=== PATIENT | female | born 1945 | race Caucasian/White ===

== ENCOUNTER → 2021-06-22 11:36 | Outpatient (CLI) | payer MEDICARE, OTHER, SELFPAY ==
--- NOTE | 2021-06-22 11:41 | DI.RAD.S_ITS ---
PROCEDURE: XR KNEE RT 3V INDICATIONS: FREQUENT FALLS TECHNIQUE: 3 views of the knee were acquired. COMPARISON: None. FINDINGS: Bones: Postsurgical changes compatible with right knee total arthroplasty. Orthopedic hardware is intact. No lucencies at the bone-hardware interface. No fractures or dislocations. No suspicious bony lesions. Soft tissues: No joint effusion. No suspicious soft tissue calcifications. IMPRESSION: No fracture. No acute osseous lesion. If symptoms and/or clinical suspicion for pathology persists, further assessment with repeat radiographs (7-10 days) or advanced imaging (e.g. CT, MRI or bone scan) should be considered. Dictated by: Ciara Michael MD, PhD on 06/22/2021 at 16:56 Approved by: Ciara Michael MD, PhD on 06/22/2021 at 16:56
--- NOTE | 2021-06-22 11:41 | DI.RAD.S_ITS ---
PROCEDURE: XR HIP W PEL IF DONE RT 2V INDICATIONS: FREQUENT FALLS TECHNIQUE: AP pelvis with lateral view(s) of the right hip(s). COMPARISON: None. FINDINGS: Bones: Postsurgical changes compatible with right hip arthroplasty and left femoral neck fracture ORIF. Orthopedic hardware is intact. No lucencies at the bone-hardware interface. No acute fractures or dislocations. Pelvic ring appears intact. No suspicious bony lesions. Soft tissues: The visualized bowel gas pattern is normal. No suspicious soft tissue calcifications. IMPRESSION: No acute fracture. No acute osseous lesion. If symptoms and/or clinical suspicion for pathology persists, further assessment with repeat radiographs (7-10 days) or advanced imaging (e.g. CT, MRI or bone scan) should be considered. Dictated by: Ciara Michael MD, PhD on 06/22/2021 at 16:54 Approved by: Ciara Michael MD, PhD on 06/22/2021 at 16:54
--- NOTE | 2021-06-22 11:41 | DI.RAD.S_ITS ---
PROCEDURE: XR FOOT RT MIN 3V INDICATIONS: FREQUENT FALLS TECHNIQUE: 3 views of the foot were acquired. COMPARISON: None. FINDINGS: Bones: No fractures or dislocations. No suspicious bony lesions. Calcaneal bone spurs. Moderate midfoot osteoarthritis. Soft tissues: No tibiotalar joint effusion. Achilles tendon appears normal. IMPRESSION: No fracture. No acute osseous lesion. If symptoms and/or clinical suspicion for pathology persists, further assessment with repeat radiographs (7-10 days) or advanced imaging (e.g. CT, MRI or bone scan) should be considered. Dictated by: Ciara Michael MD, PhD on 06/22/2021 at 16:55 Approved by: Ciara Michael MD, PhD on 06/22/2021 at 16:56
== END ==
PROVIDERS: PCP Family Medicine; Referring Provider Family Medicine; Visit Provider Family Medicine
DX: R29.6 Repeated falls (principal); M19.071 Primary osteoarthritis, right ankle and foot; M77.31 Calcaneal spur, right foot
CPT/HCPCS: 73502; 73562; 73630

== ENCOUNTER → 2021-11-22 16:21 | Outpatient (CLI) | payer MEDICARE, OTHER, SELFPAY ==
--- NOTE | 2021-11-22 | DI.RAD.S_ITS ---
PROCEDURE: XR WRIST RT MIN 3V INDICATIONS: s/p fall / TECHNIQUE: 4 views of the wrist were acquired. COMPARISON: None. FINDINGS: Bones: No fractures or dislocations. Osteoarthritic changes throughout wrist joints are seen. No suspicious bony lesions. Scaphoid view: Scaphoid is grossly intact. Soft tissues: No suspicious soft tissue calcifications. IMPRESSION: Right wrist osteoarthritis. No gross acute fracture or dislocation. Dictated by: Rob Lantigua M.D. on 11/22/2021 at 20:58 Approved by: Rob Lantigua M.D. on 11/22/2021 at 20:59
--- NOTE | 2021-11-22 | DI.RAD.S_ITS ---
PROCEDURE: XR HIP W PEL IF DONE RT 2V INDICATIONS: s/p fall / TECHNIQUE: AP pelvis with lateral view(s) of the right hip(s). COMPARISON: [facility], CR, XR HIP W PEL IF DONE RT 2V, 06/22/2021, 11:41. FINDINGS: Bones: There is prior right total hip arthroplasty and internal fixation of left femoral neck. Alignment of right hip is anatomic. No evidence of hardware loosening or failure. Cortical irregularity involving medial portion of right superior pubic ramus is seen concerning for a minimally displaced fracture in this area. Right inferior pubic ramus fracture is not definitively seen, however is likely present given mechanism of pelvic fracture. No suspicious bony lesions. Soft tissues: The visualized bowel gas pattern is normal. No suspicious soft tissue calcifications. IMPRESSION: Prior right total hip arthroplasty. No acute right hip fracture or dislocation. No gross hardware complication. Finding is concerning for subtle minimally displaced fracture involving medial portion of right superior pubic ramus, suggest clinical correlation. CT of pelvis can be done for further evaluation if indicated. Dictated by: Rob Lantigua M.D. on 11/22/2021 at 20:57 Approved by: Rob Lantigua M.D. on 11/22/2021 at 20:58
== END ==
PROVIDERS: PCP Family Medicine; Referring Provider Family Medicine; Visit Provider Family Medicine
DX: M25.551 Pain in right hip (principal); M25.531 Pain in right wrist; M19.031 Primary osteoarthritis, right wrist; W19.XXXA Unspecified fall, initial encounter
CPT/HCPCS: 73110; 73502

== ENCOUNTER 2021-12-03 18:32 | Observation (INO) | payer MEDICARE, OTHER, SELFPAY ==
[2021-12-03] VITALS (7 sets, daily range): BP systolic 140–185; BP diastolic 66–83; PULSE 73–85; RESP 18; TEMP 36.9; O2SAT 96–99; BMI 25.4
--- NOTE | 2021-12-03 21:27 | PC.NURSE ---
Addendum entered by Carolyne Martinez R.N. 12/04/21 00:21: Patient took home bedtime meds with verbal order from Dr Hylton. Original Note: Patient reports fall on 11/18, stood up from table and legs went out from under her, fell onto right hip. Seen by Dr Smith who prescribed hydrocodone/tylenol for pain. Patient took this for several days, switched to edible pot, and then switched back to hydrocodone/tylenol yesterday. Reports that neither has worked to control her pain.
--- NOTE | 2021-12-03 22:34 | ED_ITS ---
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 She fell 2 weeks ago she was sitting at a table got up from doing a puzzle when she slipped and fell. She is our primary care provider on the x-rays of hip and wrist were done and negative. She has been put on numerous medications since then including Tylenol with codeine, hydrocodone his none of that those were helping she took marijuana gummies which made her very lethargic and her family took them away from her. Daughter whom she lives with says that she has been more immobile. She typically is able to get up and go to bed and use the restroom however she has been fairly bound to the recliner. Currently appears very uncomfortable. Complaining of left-sided pain today rotating in the bed. No flank pain. points to her buttock on the left. Daughter states she was previously complaining of right-sided pain and actually fell on the right side initially Related Data Home Medications Medication Instructions Recorded Confirmed digoxin 250 mcg (0.25 mg) tablet 250 mcg PO BEDTIME 12/04/21 12/04/21 ferrous sulfate 325 mg (65 mg 325 mg PO DAILY 12/04/21 12/04/21 iron) tablet levothyroxine 175 mcg tablet 250 mcg PO QAM 12/04/21 12/04/21 (Synthroid) mirtazapine 45 mg tablet 45 mg PO BEDTIME 12/04/21 12/04/21 omeprazole 20 mg capsule,delayed 20 mg PO DAILY 12/04/21 12/04/21 release rivaroxaban 20 mg tablet (Xarelto) 20 mg PO BEDTIME 12/04/21 12/04/21 sertraline 100 mg tablet 150 mg PO DAILY 12/04/21 12/04/21 tolterodine 2 mg tablet 2 mg PO BEDTIME 12/04/21 12/04/21 vitamin B complex (B 1 tab PO DAILY 12/04/21 12/04/21 Complex-Vitamin B12) Allergies Allergy/AdvReac Type Severity Reaction Status Date / Time gabapentin Allergy Verified 12/03/21 18:58 Review of Systems Review of Systems Narrative: GENERAL: Denies chills, fatigue, malaise, fever, sweats, travel HEENT: Denies sinus pain, ear pain, sore throat, difficulty swallowing, neck pain RESPIRATORY: Denies dyspnea, cough, wheezing, hemoptysis, sputum. CARDIOVASCULAR: Denies chest pain, palpitations, orthopnea, edema GASTROINTESTINAL: Denies nausea, vomiting, abdominal pain, diarrhea, constipation, melena. : Denies dysuria, frequency, incontinence, hematuria, urinary retention, flank pain. MUSCULOSKELETAL: See HPI SKIN: No rash, no erythema, no pruritus NEUROLOGIC: Denies weakness, dizziness, headache, numbness, change in speech, confusion PSYCHIATRIC: No concerning psychosocial issues. 12 point review of systems is negative except for those stated above and HPI Patient History Medical History (Updated 12/04/21 @ 00:27 by Renee Hylton DO) Neuropathy Social History Smoking Status: Never smoker Smoking Status: Never smoker Substance Use Type: marijuana Exam Initial Vital Signs Initial Vital Signs: Vital Signs Temperature 98.4 F 12/03/21 18:58 Pulse Rate 85 12/03/21 18:58 Respiratory Rate 18 12/03/21 18:58 Blood Pressure 140/76 12/03/21 18:58 Pulse Oximetry 99 12/03/21 18:58 GENERAL: 76-year-old female appears in pain uncomfortable can not find his position HEENT: Head atraumatic,EOMI, pupils reactive, face symmetric, moist mucous membranes CARDIOVASCULAR: Regular rate and rhythm without murmurs, rubs or gallops. RESPIRATORY: Breath sounds equal bilaterally, no wheezes rales or rhonchi. BACK: Midline remove lower lumbar tenderness. Pain in left buttock EXTREMITIES: Normal range of motion, no clubbing or edema. Neurovascularly intact. Pelvis is stable both knees are bent and equal distal pedal pulses intact. NEUROLOGICAL: Alert and oriented x4. Moving all extremities SKIN: Warm, dry, no laceration, no petechiae, no rashes or lesions. Course Orders Ordered: ED Orders 12/03/21 22:50 CT lumbar spine wo con Stat CT pelvis wo con Stat 12/03/21 23:54 CBC Auto Diff [Complete Blood Count AUTO DIFF] Stat CMP [Comprehensive Metabolic Panel] Stat 12/03/21 23:58 COVID19 -Nasal swab/Pre-Proc Stat 12/04/21 00:33 Consult to Orthopedic Surgery Stat Hydromorphone HCl (Hydromorphone 2 Mg Inj) 1 mg SUBCUT Q4H PRN PRN Reason: Pain, Severe (7-10) Last Admin: 12/03/21 23:04 Dose: 1 mg Documented by: ANN Discontinued Medications Hydromorphone HCl (Hydromorphone 0.5 Mg Inj) 0.5 mg IV NOW ONE Stop: 12/04/21 00:18 Last Admin: 12/04/21 00:25 Dose: 0.5 mg Documented by: ANN Lorazepam (Lorazepam 2 Mg/Ml Inj) 0.5 mg IV NOW ONE Stop: 12/04/21 00:18 Last Admin: 12/04/21 00:25 Dose: 0.5 mg Documented by: ANN Vital Signs Vital signs: Vital Signs - 8 hr 12/03/21 18:58 12/03/21 21:21 12/03/21 21:22 Temperature 98.4 F Pulse Rate 85 83 83 Respiratory Rate 18 Blood Pressure 140/76 172/83 H Pulse Oximetry 99 97 96 12/03/21 21:30 12/03/21 21:31 12/03/21 22:00 Temperature Pulse Rate 82 76 80 Respiratory Rate Blood Pressure 185/76 H Pulse Oximetry 98 99 99 12/03/21 22:01 12/04/21 00:29 12/04/21 00:30 Temperature Pulse Rate 73 68 67 Respiratory Rate Blood Pressure 144/66 H 129/59 L Pulse Oximetry 98 93 93 MDM - Back Pain/Injury Lab Data Result diagrams: 12/04/21 00:05 12/04/21 00:05 Labs: Lab Results 12/04/21 12/04/21 12/04/21 Range/Units 00:05 00:05 00:05 WBC 8.2 (4.5-11.0) X10^3/uL RBC 3.58 L (4.0-5.2) X10^6/uL Hgb 11.2 L (12.0-16.0) g/dL Hct 33.9 L (36-46) % MCV 94.7 (80-100) fL MCH 31.4 (26-34) PG MCHC 33.2 (30-36) % RDW 13.8 (11.6-14.8) % Plt Count 308 (150-400) X10^3/uL Neut % (Auto) Not Reportable Lymph % (Auto) Not Reportable [place] % (Auto) Not Reportable Eos % (Auto) Not Reportable Baso % (Auto) Not Reportable Lymph # (Auto) Not Reportable [place] # (Auto) Not Reportable Baso # (Auto) Not Reportable Total Counted 100 Seg Neutrophils % 81.0 H (38-70) % Band Neutrophils % 1.0 L (3-7) % Lymphocytes % (Manual) 16.0 L (25-45) % Monocytes % (Manual) 1.0 L (2-11) % Basophils % (Manual) 1.0 (0-1) % Neutrophils # (Manual) 6724 H (0650-8086) /uL RBC Morphology Normal morphology Sodium 139 (137-145) mmol/L Potassium 4.0 (3.4-5.1) mmol/L Chloride 107 (98-107) mmol/L Carbon Dioxide 29 (22-32) mmol/L BUN 18 H (7-17) mg/dL Creatinine 0.79 (0.52-1.04) mg/dL Estimated GFR > 60.0 (>60) mL/min BUN/Creatinine Ratio 22.8 H (6-22) Glucose 97 (80-110) mg/dL Calcium 9.1 (8.4-10.2) mg/dL Total Bilirubin 0.6 (0.2-1.3) mg/dL AST 36 (14-36) IU/L ALT 18 (<35) IU/L Alkaline Phosphatase 218 H (38-126) U/L Total Protein 7.3 (6.3-8.2) g/dL Albumin 4.0 (3.5-5.0) g/dL Globulin 3.3 (1.7-4.1) g/dL Albumin/Globulin Ratio 1.2 (1.0-2.8) SARS-CoV-2 (PCR) Negative (Negative) Imaging Data CT scan - abdomen/pelvis: Radiologist's Impression: PROCEDURE:? CT PEL WO CON ? INDICATIONS:? fall pain ? TECHNIQUE:? Noncontrast 3 mm axial sections acquired through the bony pelvis, with coronal and sagittal reformatting.? ? COMPARISON:? [facility], CT, CT LUMBAR SPINE WO CON, 12/03/2021, 23:00.? [facility], CR, XR HIP W PEL IF DONE RT 2V, 06/22/2021, 11:41.? [facility], CR, XR LUMBAR SPINE WITH FLEXION EXTENSION 5 VIEWS, 07/26/2021, 16:13.? [facility], CR, XR HIP W PEL IF DONE RT 2V, 11/22/2021, 16:36. ? FINDINGS:? Image quality:? Excellent.? ? Bones:? There is a minimally impacted slightly displaced medial superior obturator ring fracture that intersects with the symphysis pubis on the right, not present on prior plain film imaging 06/22/21.? Metal artifact from fixation devices at the right and left hip does produce reduced quality of visualization in this area but the injury appears subacute. ? Soft tissues:? No hematoma found. ? ? IMPRESSION:? Subacute minimally impacted medial right superior obturator ring fracture, no hip fracture or adjacent spine injury is found. ? ? ? Dictated by: Anil Epperson M.D. on 12/03/2021 at 23:32? CT lumbar: Radiologist's Impression: PROCEDURE:? CT LUMBAR SPINE WO CON ? INDICATIONS:? fall2 weeks ago increased pain ? TECHNIQUE:? Noncontrast 3 mm thick sections acquired from the T12 level to the sacrum.? Sagittal and coronal reformats were constructed.? For radiation dose reduction, the following was used:? automated exposure control.? ? COMPARISON:? None. ? FINDINGS:? Image quality:? Excellent.? ? Bones:? There is normal bony alignment.? No acute vertebral body compression fractures.? No suspicious lytic or blastic bony lesions.? No pars defects.? ? Soft tissues:? No retroperitoneal masses or hematomas.? Visualized aorta is normal in caliber.? ? ? IMPRESSION:? No acute or subacute or trauma found.? Chronic mild degenerative disc disease is noted along the low thoracic and lumbosacral spine.? Elective MR scanning may be warranted depending on the clinical status if disc bulge or herniation after trauma is clinically suspected. ? ? Dictated by: Anil Epperson M.D. on 12/03/2021 at 23:29 ? ? MDM Narrative Medical decision making narrative: The patient overall appears quite uncomfortable. She initially had a fall about 2 weeks ago with progressive decline all unable to ambulate. CT does confirm very minimally impacted right superior obturator ring fracture. She was given Dilaudid for pain initially and does not seem to help much. IV is placed. She will need likely need physical therapy, seeing as though she is not doing well at home and pain is not well controlled with pain medication or marijuana gummies. Pain is much better after small dose of Dilaudid and Ativan. Dr. Elizabeth updated patient's symptoms test results and happily accepted Dr. Clement orthopedics consulted in regards to fracture. Agrees with that admission. May weight bear as tolerated and pain management. Discharge Plan Departure Patient Disposition: Admitted As Inpatient Clinical Impression: Closed pelvic fracture Admit Date/Time: 12/04/21 00:34 Admit Provider: Kait Elizabeth
--- NOTE | 2021-12-03 22:50 | DI.CT.S_ITS ---
PROCEDURE: CT LUMBAR SPINE WO CON INDICATIONS: fall2 weeks ago increased pain TECHNIQUE: Noncontrast 3 mm thick sections acquired from the T12 level to the sacrum. Sagittal and coronal reformats were constructed. For radiation dose reduction, the following was used: automated exposure control. COMPARISON: None. FINDINGS: Image quality: Excellent. Bones: There is normal bony alignment. No acute vertebral body compression fractures. No suspicious lytic or blastic bony lesions. No pars defects. Soft tissues: No retroperitoneal masses or hematomas. Visualized aorta is normal in caliber. IMPRESSION: No acute or subacute or trauma found. Chronic mild degenerative disc disease is noted along the low thoracic and lumbosacral spine. Elective MR scanning may be warranted depending on the clinical status if disc bulge or herniation after trauma is clinically suspected. Dictated by: Anil Epperson M.D. on 12/03/2021 at 23:29 Approved by: Anil Epperson M.D. on 12/03/2021 at 23:31
--- NOTE | 2021-12-03 22:50 | DI.CT.S_ITS ---
PROCEDURE: CT PEL WO CON INDICATIONS: fall pain TECHNIQUE: Noncontrast 3 mm axial sections acquired through the bony pelvis, with coronal and sagittal reformatting. COMPARISON: [facility], CT, CT LUMBAR SPINE WO CON, 12/03/2021, 23:00. [facility], CR, XR HIP W PEL IF DONE RT 2V, 06/22/2021, 11:41. [facility], CR, XR LUMBAR SPINE WITH FLEXION EXTENSION 5 VIEWS, 07/26/2021, 16:13. [facility], CR, XR HIP W PEL IF DONE RT 2V, 11/22/2021, 16:36. FINDINGS: Image quality: Excellent. Bones: There is a minimally impacted slightly displaced medial superior obturator ring fracture that intersects with the symphysis pubis on the right, not present on prior plain film imaging 06/22/21. Metal artifact from fixation devices at the right and left hip does produce reduced quality of visualization in this area but the injury appears subacute. Soft tissues: No hematoma found. IMPRESSION: Subacute minimally impacted medial right superior obturator ring fracture, no hip fracture or adjacent spine injury is found. Dictated by: Anil Epperson M.D. on 12/03/2021 at 23:32 Approved by: Anil Epperson M.D. on 12/03/2021 at 23:37
[2021-12-03] MEDS: HYDROMORPHONE 2 MG INJ 1 MG SUBCUT (23:04)
[2021-12-04] VITALS (11 sets, daily range): BP systolic 115–155; BP diastolic 59–79; PULSE 48–87; RESP 16–20; TEMP 36.3–36.7; O2SAT 93–99; BMI 26.2
[2021-12-04 00:21] LABS: Hematocrit 33.9 % (36-46); Hemoglobin 11.2 g/dL (12.0-16.0); Mean Corpuscular HGB Conc 33.2 % (30-36); Mean Corpuscular Hemoglobin 31.4 PG (26-34); Mean Corpuscular Volume 94.7 fL (80-100); Platelet Count 308 X10^3/uL (150-400); Red Blood Cell Count 3.58 X10^6/uL (4.0-5.2); Red Cell Distribution Width 13.8 % (11.6-14.8); White Blood Cell Count 8.2 X10^3/uL (4.5-11.0)
[2021-12-04 00:22] LABS: Add Manual Diff / Slide Review YES
[2021-12-04] MEDS: HYDROMORPHONE 0.5 MG INJ IV (00:25)
[2021-12-04] MEDS: LORazepam 2 MG/ML INJ 0.5 MG IV (00:25)
[2021-12-04 00:26] LABS: Alanine Aminotransferase 18 IU/L (<35); Albumin Globulin Ratio 1.2 (1.0-2.8); Alkaline Phosphatase 218 U/L (38-126); Aspartate Aminotransferase 36 IU/L (14-36); BUN Creatinine Ratio 22.8 (6-22); Bilirubin Total 0.6 mg/dL (0.2-1.3); Blood Urea Nitrogen 18 mg/dL (7-17); Calcium 9.1 mg/dL (8.4-10.2); Carbon Dioxide 29 mmol/L (22-32); Chloride 107 mmol/L (98-107); Estimated Glomerular Filt Rate > 60.0 mL/min (>60); Globulin 3.3 g/dL (1.7-4.1); Glucose 97 mg/dL (80-110); Sodium 139 mmol/L (137-145); Total Protein 7.3 g/dL (6.3-8.2)
[2021-12-04 00:29] LABS: COVID19 -Nasal RAPID Negative (Negative)
[2021-12-04 00:31] LABS: HEMOLYSIS 64 (0-50)
[2021-12-04 00:56] LABS: RBC Morphology Normal Morphology
[2021-12-04 01:08] LABS: Neutrophils Absolute Manual 6724 /uL (3000-5900); Total Cells Counted 100
[2021-12-04] MEDS: SERTRALINE 50 MG TABLET 150 MG PO (08:27)
[2021-12-04] MEDS: OXYCODONE IR 5 MG TABLET PO (08:27)
[2021-12-04] MEDS: PANTOPRAZOLE DR 40 MG TABLET PO (08:27)
[2021-12-04] MEDS: DOCUSATE 100 MG CAPSULE PO ×2 (08:28→20:44)
[2021-12-04] MEDS: FERROUS SULFATE 325 MG TABLET PO (08:28)
[2021-12-04] MEDS: ACETAMINOPHEN 325 MG TABLET 650 MG PO (08:28)
[2021-12-04] MEDS: LEVOTHYROXINE 125 MCG TABLET 250 MCG PO (08:29)
--- NOTE | 2021-12-04 09:34 | PM.CN ---
History of Present Illness Consult details Date Patient Seen: 12/04/21 Time Patient Seen: 09:34 Chief complaint: SEVERE RT BACK/LEG PAIN Reason for consult: Pubic ramus fracture Requesting provider: Renee Hylton Narrative: Patient is a 76-year-old woman with a previous history of a right total hip replacement and a left hip closed reduction percutaneous screw fixation for a left femoral neck fracture. These surgeries were performed in [place]. She fell about 2 weeks ago and has had significant difficulty ambulating since. She underwent x-rays ordered by her primary care office on November 22, 2021 which showed a likely right pubic ramus fracture. She subsequently had continued difficulty walking and was seen at the emergency room on December 03, [address] scans of the pelvis and of the lumbosacral spine. These revealed no trauma of the lumbar spine and confirmed a right pubic ramus fracture. Orthopedic consultation is obtained for management of the fracture. Meds Home Medications and Allergies Home Medications Medication Instructions Recorded Confirmed Type digoxin 250 mcg (0.25 mg) tablet 250 mcg PO BEDTIME 12/04/21 12/04/21 History ferrous sulfate 325 mg (65 mg 325 mg PO DAILY 12/04/21 12/04/21 History iron) tablet levothyroxine 175 mcg tablet 250 mcg PO QAM 12/04/21 12/04/21 History (Synthroid) mirtazapine 45 mg tablet 45 mg PO BEDTIME 12/04/21 12/04/21 History omeprazole 20 mg capsule,delayed 20 mg PO DAILY 12/04/21 12/04/21 History release rivaroxaban 20 mg tablet (Xarelto) 20 mg PO BEDTIME 12/04/21 12/04/21 History sertraline 100 mg tablet 150 mg PO DAILY 12/04/21 12/04/21 History tolterodine 2 mg tablet 2 mg PO BEDTIME 12/04/21 12/04/21 History vitamin B complex (B 1 tab PO DAILY 12/04/21 12/04/21 History Complex-Vitamin B12) Allergies Allergy/AdvReac Type Severity Reaction Status Date / Time gabapentin Allergy Verified 12/03/21 18:58 Review of Systems Review of Systems Narrative: The patient reports she has had a history of frequent falls. She has had no change in her general health status. Exam Vital Signs (past 8 hours): - 12/04/21 01:55 12/04/21 03:37 12/04/21 05:40 Temperature 97.4 F L Pulse Rate 60 63 Respiratory Rate 18 20 Blood Pressure 139/71 138/75 Pulse Oximetry 97 99 12/04/21 08:00 Temperature 97.5 F L Pulse Rate 48 L Respiratory Rate 18 Blood Pressure 155/79 H Pulse Oximetry 98 Oxygen Delivery Method Nasal Cannula Oxygen Flow Rate 0 Narrative Exam Narrative: On physical examination she is tender to palpation at the pubic symphysis. She has no pain with range of motion of the right hip including flexion and extension or rotation. Objective Labs Result Diagrams: 12/04/21 00:05 12/04/21 00:05 Labs: Laboratory Results - last 24 hr 12/04/21 12/04/21 12/04/21 00:05 00:05 00:05 WBC 8.2 RBC 3.58 L Hgb 11.2 L Hct 33.9 L MCV 94.7 MCH 31.4 MCHC 33.2 RDW 13.8 Plt Count 308 Neut % (Auto) Not Reportable Lymph % (Auto) Not Reportable [place] % (Auto) Not Reportable Eos % (Auto) Not Reportable Baso % (Auto) Not Reportable Lymph # (Auto) Not Reportable [place] # (Auto) Not Reportable Baso # (Auto) Not Reportable Total Counted 100 Seg Neutrophils % 81.0 H Band Neutrophils % 1.0 L Lymphocytes % (Manual) 16.0 L Monocytes % (Manual) 1.0 L Basophils % (Manual) 1.0 Neutrophils # (Manual) 6724 H RBC Morphology Normal morphology Sodium 139 Potassium 4.0 Chloride 107 Carbon Dioxide 29 BUN 18 H Creatinine 0.79 Estimated GFR > 60.0 BUN/Creatinine Ratio 22.8 H Glucose 97 Calcium 9.1 Total Bilirubin 0.6 AST 36 ALT 18 Alkaline Phosphatase 218 H Total Protein 7.3 Albumin 4.0 Globulin 3.3 Albumin/Globulin Ratio 1.2 Nasal Screen MRSA (PCR) SARS-CoV-2 (PCR) Negative 12/04/21 01:45 WBC RBC Hgb Hct MCV MCH MCHC RDW Plt Count Neut % (Auto) Lymph % (Auto) [place] % (Auto) Eos % (Auto) Baso % (Auto) Lymph # (Auto) [place] # (Auto) Baso # (Auto) Total Counted Seg Neutrophils % Band Neutrophils % Lymphocytes % (Manual) Monocytes % (Manual) Basophils % (Manual) Neutrophils # (Manual) RBC Morphology Sodium Potassium Chloride Carbon Dioxide BUN Creatinine Estimated GFR BUN/Creatinine Ratio Glucose Calcium Total Bilirubin AST ALT Alkaline Phosphatase Total Protein Albumin Globulin Albumin/Globulin Ratio Nasal Screen MRSA (PCR) Negative for mrsa SARS-CoV-2 (PCR) I have reviewed and independently interpreted the x-rays from November 22, [address] scan from December 03, 2021. As noted above these reveal a pubic ramus fracture on the right. There is a right total hip replacement in place. There does not appear to be any trauma around the hip replacement. The acetabular cup was placed very deep into the acetabulum and there may have been damage to the central wall of the acetabulum during the implantation but there does not appear to be a current fracture. [facility] Medical History (Updated 12/04/21 @ 09:38 by Kuldip Clement MD) Fracture of femoral neck, left Neuropathy Surgical History (Updated 12/04/21 @ 09:38 by Kuldip Clement MD) History of total right hip arthroplasty Social History household members: children Tobacco & Substance Use Smoking Status: Never smoker alcohol intake: current Assessment & Plan Assessment and plan (1) Closed pelvic fracture: Status: Acute (2) Neuropathy: Status: Acute Plan Weight bear as tolerated right lower extremity. Crutches or walker for comfort Assessment & Plan narrative: She has a nondisplaced pubic ramus fracture on the right. There is no restriction to weight-bearing. She may require assisted weight-bearing with a walker and potentially may require [facility] facility placement if she is unable to tolerate her home environment using the walker. We will order the durable medical equipment and appropriate physical therapy. Formal orthopedic follow-up is unnecessary however if pain continues she can follow-up at our office. COVID-19 COVID-19 status: Negative Result date/Date tested (Pos, Neg/Pending): 12/04/21 Time Spent With Patient Time with patient: less than 30 minutes Critical Care time: I spent a total of 20 minutes of critical care time on this patient's care today; this time is exclusive of procedural time.
--- NOTE | 2021-12-04 10:41 | PC.NURSE ---
Addendum entered by Jaqui Hunt R.N. 12/04/21 17:58: iv abx infusing and pt called to use d bsc- assist of 2 staff members to get her to commode and then she was unable to urinate - assisted back to bed and placed brief- abx continued to infuse- oxycodone 10mg given and is ordered q 6h after assisting back to bed pt calmed down and appears to be snoozing, scd's placed Addendum entered by Jaqui Hunt R.N. 12/04/21 14:45: received order for increased dose of oxycodone for obvious discomfort for pt- also sent urine for urinalysis due to strong odor - + nitrates- will call Dr. Elizabeth - pt encouraged to stay up in chair for 20 minutes more- she got up with much support from PT, as much emotional as physical Original Note: PT C/O PAIN TO PELVIC AREA- REPORTS NOT ABLE TO GET UP FROM BED BUT THEN STATES THATS WHAT SHE DOES AT HOME WITH ASSIST FROM DAUGHTER IN LAW- PT INCONT OF URINE AND STATES TO THIS RN THAT ITS BOTH DUE TO INABILITY TO GET UP ( SECONDARY TO DISCOMFORT) AND ACTUAL BLADDER INCONTINENCE- MEDICATED WITH 5MG OXYCODONE THIS AM ALONG WITH OTHER ORDERED MEDS WITH APPLESAUCE- DECLINED TO HAVE HOB ELEVATED MORE THAN 32 DEGREES - TOOK ONLY THE APPLESAUCE THAT WAS SPOON FED BY THIS RN- TOOK APPROX 3 SIPS OF HER COFFEE AND DECLINE REST OF AM MEAL- TURNED TO RIGHT SIDE AFTER CHANGING BRIEF
--- NOTE | 2021-12-04 12:54 | PM.HP.1 ---
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 The pt reports that around 2 weeks ago she was sitting in a chair, and max to go outside and deal with her dogs. She fell while she was standing, because she tried to rotate at the same time. She reports having instant hip pain. Since then, the pain has persisted. She was reportedly seen by her PCP, Dr Smith, on 11/22. Xrays of her pelvis were completed at that time that showed possible fracture of the right superior pubic ramus. The pt has been at home since then, with different pain medications, none of which have offered adequate relief. She is living with her family, and she has been completely reliant on them for all of her needs. She is barely mobile to the restroom, and only with great assistance. She has been spending nearly all day in her recliner. The pt currently complains of ongoing pain across both her hips. She states it is so severe she can't really sit in bed. She denies any chest pain, SOB, LE edema, change in BMs, abdominal pain. She states the fall was only mechanical in nature, and denies hitting her head. PMH: Hypothyroidism Urinary incontinence Depression Arachnoid cyst Tethered cord Neuropathy Atrial fibrillaion on chronic anticoagulation Surgical Hx: Gastric bypass surgery Right hip replacement Left formal neck screw placement Social Hx: Living at home with her daughter and son-in-law. Has a fair amount of assistance at baseline. No tobacco, recreational drug use. Tried some marijuana gummies for pain control but they made her seem altered. Patient History Medical History (Updated 12/04/21 @ 09:38 by Kuldip Clement MD) Fracture of femoral neck, left Neuropathy Surgical History (Updated 12/04/21 @ 09:38 by Kuldip Clement MD) History of total right hip arthroplasty Family & Social History Social History: household members children Prior Living Arrangements House Safety & Behavioral: Feels Safe in Current Yes Environment Been Physically Hurt or No Threatened By a Person Suicidal Ideation Description None Suicide Plan Description No Plan Tobacco & Substance use: Smoking Status Never smoker alcohol intake current alcohol intake frequency a few times a month Substance Use Type marijuana Meds Home Medications and Allergies Home Medications Medication Instructions Recorded Confirmed Type digoxin 250 mcg (0.25 mg) tablet 250 mcg PO BEDTIME 12/04/21 12/04/21 History ferrous sulfate 325 mg (65 mg 325 mg PO DAILY 12/04/21 12/04/21 History iron) tablet levothyroxine 175 mcg tablet 250 mcg PO QAM 12/04/21 12/04/21 History (Synthroid) mirtazapine 45 mg tablet 45 mg PO BEDTIME 12/04/21 12/04/21 History omeprazole 20 mg capsule,delayed 20 mg PO DAILY 12/04/21 12/04/21 History release rivaroxaban 20 mg tablet (Xarelto) 20 mg PO BEDTIME 12/04/21 12/04/21 History sertraline 100 mg tablet 150 mg PO DAILY 12/04/21 12/04/21 History tolterodine 2 mg tablet 2 mg PO BEDTIME 12/04/21 12/04/21 History vitamin B complex (B 1 tab PO DAILY 12/04/21 12/04/21 History Complex-Vitamin B12) Allergies Allergy/AdvReac Type Severity Reaction Status Date / Time gabapentin Allergy Verified 12/03/21 18:58 Exam Vital Signs (past 8 hours): - 12/04/21 05:40 12/04/21 08:00 12/04/21 09:54 Temperature 97.4 F L 97.9 F 97.9 F Pulse Rate 63 75 Respiratory Rate 20 16 Blood Pressure 138/75 155/79 H Pulse Oximetry 99 98 Oxygen Delivery Method Room Air Oxygen Flow Rate 0 Narrative Exam Narrative: GEN - alert, cooperative and no distress HEENT - normocephalic and atraumatic, moist mucus membranes NECK - FROM, no adenopathy, no JVD HEART - RRR, S1, S2 normal, no S3 or S4, no murmurs LUNGS - symmetric chest rise, no accessory muscles, clear to auscultation bilaterally ABD - flat, nondistended, normal bowel sounds, soft, nontender and no hepatomegaly, splenomegaly or masses EXT - no cyanosis, clubbing or edema SKIN - no rashes or suspicious lesions NEURO - no gross deficits Objective Labs Result Diagrams: 12/04/21 00:05 12/04/21 00:05 Labs: Laboratory Results - last 24 hr 12/04/21 12/04/21 12/04/21 00:05 00:05 00:05 WBC 8.2 RBC 3.58 L Hgb 11.2 L Hct 33.9 L MCV 94.7 MCH 31.4 MCHC 33.2 RDW 13.8 Plt Count 308 Neut % (Auto) Not Reportable Lymph % (Auto) Not Reportable [place] % (Auto) Not Reportable Eos % (Auto) Not Reportable Baso % (Auto) Not Reportable Lymph # (Auto) Not Reportable [place] # (Auto) Not Reportable Baso # (Auto) Not Reportable Total Counted 100 Seg Neutrophils % 81.0 H Band Neutrophils % 1.0 L Lymphocytes % (Manual) 16.0 L Monocytes % (Manual) 1.0 L Basophils % (Manual) 1.0 Neutrophils # (Manual) 6724 H RBC Morphology Normal morphology Sodium 139 Potassium 4.0 Chloride 107 Carbon Dioxide 29 BUN 18 H Creatinine 0.79 Estimated GFR > 60.0 BUN/Creatinine Ratio 22.8 H Glucose 97 Calcium 9.1 Total Bilirubin 0.6 AST 36 ALT 18 Alkaline Phosphatase 218 H Total Protein 7.3 Albumin 4.0 Globulin 3.3 Albumin/Globulin Ratio 1.2 Nasal Screen MRSA (PCR) SARS-CoV-2 (PCR) Negative 12/04/21 01:45 WBC RBC Hgb Hct MCV MCH MCHC RDW Plt Count Neut % (Auto) Lymph % (Auto) [place] % (Auto) Eos % (Auto) Baso % (Auto) Lymph # (Auto) [place] # (Auto) Baso # (Auto) Total Counted Seg Neutrophils % Band Neutrophils % Lymphocytes % (Manual) Monocytes % (Manual) Basophils % (Manual) Neutrophils # (Manual) RBC Morphology Sodium Potassium Chloride Carbon Dioxide BUN Creatinine Estimated GFR BUN/Creatinine Ratio Glucose Calcium Total Bilirubin AST ALT Alkaline Phosphatase Total Protein Albumin Globulin Albumin/Globulin Ratio Nasal Screen MRSA (PCR) Negative for mrsa SARS-CoV-2 (PCR) Assessment & Plan Assessment & Plan narrative: Pt is 76yo woman with atrial fibrillation on chronic anticoagulation, hypothyroidism, urinary incontinence, depression, 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 CT consistent with right superior obturator ring fracture. 1) Pelvic fracture: Pt with significant pain. - Ortho consulted, appreciate recommendations - No weight-bearing restriction, mobilize as able - Physical therapy - PO Oxycodone PRN initial, dilaudid secondary for pain control - Will need placement in SNF/rehab at discharge 2) Atrial fibrillation: Stable - Continue home digoxin, xarelto 3) Hypothyroidism: Dose reportedly recently adjusted - Continue Levothyroxine - PCP to determine need for repeat TSH based on when last obtained 4) Depression: Stable - Continue home Mirtazapine, Sertraline 5) GERD: Stable - Continue home Omeprazole 6) Urinary incontinence: Stable - Continue home Tolterodine - U/A today Code: Full FEN: Regular diet DVT ppx: on chronic anticoagulation Dispo: Pending adequate pain control, appropriate placement found. Time Spent With Patient Critical Care time: I spent a total of [] minutes of critical care time on this patient's care today; this time is exclusive of procedural time.
--- NOTE | 2021-12-04 13:53 | PT.IIE ---
Addendum entered and electronically signed by Shayna Combs PT 12/04/21 17:43: Add to POC: Re-assess Tuesday 12/05 for appropriateness of twice daily treatment. Original Note: Current Diagnoses Polyneuropathy, unspecified (12/04/21) Fracture of unspecified parts of lumbosacral spine and pelvis, initial encounter for closed fracture (12/04/21) Medical History (Last Updated 12/04/21 @ 09:38 by Kuldip Clement MD) Fracture of femoral neck, left Neuropathy Physical Therapy Inpatient Evaluation/Re-Eval M1 PT/OT-IP Prior Functional Status Start: 12/04/21 09:06 Freq: NEEDED Status: Active Protocol: Document 12/04/21 13:53 AW (Rec: 12/04/21 14:29 AW [id number]) Medical Review Prior Functional Status Medical History Reviewed Yes Communication WNL. Pt is an effective verbal communicator. She presents with increased anxiety. Mobility and Gait Pt uses an UPwalker, FWW, or 4WW depending on circumstance. She will occasionally use a manual w/c for appointments. She reports at least two injurious falls in the past year. Activities of Daily Living and IADL's Independent with all ADL's except SBA for showers. Pt's family assist with IADL's and driving. Prior Functional Level (Other details) Pt has been attending outpatient PT in [place]. Social History Household Members children Living Arrangements House Number of Floors (Floors) 3 or More Floors Number of Stairs To Enter/Railing? Pt has a level entrance through the garage and stays in the lower level apartment with no need to use stairs. Home Environment High Toilet,Walk in Shower Home Equipment Front Wheel Walker,Four Wheel Walker,Manual Wheelchair, Raised Toilet Seat w/Armrests, Shower Seat without Backrest, Safety Advisor,Grab Bars Near Toilet, Grab Bars In Shower Additional Social History Comment Shower grab bars are suction cup. Pt has an adjustable bed Pt lives in the lower level apartment with her son and daughter in law living upstairs. They work cook vegetable jobs but take turns going home for lunch to check on pt who is otherwise alone several hours per day. M2 PT-IP Current Condition Start: 12/04/21 09:06 Freq: NEEDED Status: Active Protocol: Document 12/04/21 13:53 AW (Rec: 12/04/21 14:29 AW [id number]) Physical Therapy Current Condition Current Condition Evaluation Date 12/04/21 Treatment Diagnosis R pubic ring fracture; impaired mobility and gait Onset Date 11/18/21 M3 PT-IP Subjective Start: 12/04/21 09:06 Freq: NEEDED Status: Active Protocol: Document 12/04/21 13:53 AW (Rec: 12/04/21 14:29 AW [id number]) Subjective Physical Therapy Visit Type Type Initial Evaluation Visit Start Time 13:28 Visit Stop Time 13:53 Total Visit Minutes 25 Notes Pt's daughter in law, Selina, was present throughout. Number of PAINT FORMULATOR Visits 0 Physical Therapy Visit Comments Patient Comments Pt is quite hesitant but ultimately willing to get up and try to use the commode. Therapy Pain Assessment Pain When Pain Assessed At Rest Pain Present Pain Present Pain Reported Location left side pelvis/groin Intensity 8 Scale Used Numeric (0 - 10) Pain Behaviors Crying,Facial Grimacing, Restlessness,Wincing Pain Management Techniques Modification of Treatment,Re- positioning,Timing of Activity with Medications M4 PT-IP Mobility and Gait Start: 12/04/21 09:06 Freq: NEEDED Status: Active Protocol: Document 12/04/21 13:53 AW (Rec: 12/04/21 14:29 AW [id number]) PT-Bed Mobility Assessment Supine to Sit Supine to Sit Maximum Assistance,1 Person Assistance,Head of Bed Elevated Scooting Scooting to Edge of Bed Moderate Assistance,Maximum Assistance PT-Transfer Assessment Sit to and From Stand Sit to and from Stand Maximum Assistance,1 Person Assistance,Use of Upper Extremities Equipment Transfer Assistive Device Gait Belt,Front Wheeled Walker Orthotic/Prosthetic Devices or Brace: No Transfers Transfer Destination Chair,Bedside Commode Transfer Technique Stand Step Pivot Transfer Ability Level of Assist Maximum Assistance,1 Person Assistance Comments Mobility Comments Pt was sitting up in bed as PT arrived. BP 145/70 HR 69. She noted she has an adjustable bed at home. PT provided assist to move her legs together toward R EOB. Pt complained of increased pain in her left pelvis/groin. Pt's respiratory rate increased substantially but she responded well to frequent cues for deep and controlled breathing. In sitting, she was able to scoot herself forward mod/max A x 1 by pushing through B arms on the bed and using bed cane on her left side. Pt was able to stand max A x 1 but complained of increased pain during transition. She completed step pivot transfer to [facility] set up on her left side max A x 1 for walker management and stability. Pt was able to lower herself to the commode mod A x 1. She tolerated sitting ~1 minute and then began shifting on the seat, attempting to offweight her left hip. She stood in 1/4 squat position to void and then sat again. Sit to stand was max A x1 and pt transferred to chair ~3 feet away max A x 1. She sat on the chair with pillow placed under her left hip. Pt was left with call light and tray table in reach. She agreed to use call benítez for mobility needs. PT communicated pt request for pain medication to RN. Gait Assessment Gait Gait Assistance Required: Maximum Assistance,1 Person Assist Distance (Feet) 3 Able to Maintain Weight Bearing Status Yes During Gait Assistive Devices Assistive Device Gait Belt,Front Wheeled Walker Orthotic/Prosthetic Devices or Brace: No Gait Deviations General Gait Pattern Antalgic,Decreased Stride Length,Decreased Feet Clearance,Flexed Trunk,Lateral Trunk Lean,Step-to Gait Factors Limiting Gait Function Factors Limiting Gait Function Pain,Poor Balance Comments Gait Comments Steps taken during transfers only. See mobility comments for details. Stair Climbing Assessment Comments Stair Climbing Comments Not assessed. No stairs at home PT-Balance Assessment Sitting Balance and Reactions Static Sitting Balance Ability Fair Dynamic Sitting Balance Ability Fair Standing Balance and Reactions Static Standing Balance Ability Fair Dynamic Standing Balance Ability Poor Device Used FWW M5 PT-IP Objective Assessments Start: 12/04/21 09:06 Freq: NEEDED Status: Active Protocol: Document 12/04/21 13:53 AW (Rec: 12/04/21 14:29 AW [id number]) Orientation Orientation/Cognition Level of Alertness Alert Orientation Name,Day of Week,Place, Situation Language Function Ability No Deficits Noted Safety Awareness Understands Safety Issues Memory Description No Deficits Noted Strength Upper Extremity Strength Assessment Within Functional Limits Lower Extremity Strength Assessment Bilaterally Impaired Hip 3-/5 Knee 4-/5 Sensation Assessment Sensation Gross Sensation WNL M6 PT-IP Treatment Start: 12/04/21 09:06 Freq: NEEDED Status: Active Protocol: Document 12/04/21 13:53 AW (Rec: 12/04/21 14:29 AW [id number]) Physical Therapy Treatment Education Education Provided Weight Bearing Status,Safety Other Treatments Other Treatment Performed Educated pt extensively on WBAT and risks of immobility. M7 PT-IP Assessment and Plan Start: 12/04/21 09:06 Freq: NEEDED Status: Active Protocol: Document 12/04/21 13:53 AW (Rec: 12/04/21 14:29 AW [id number]) PT Summary Assessment and Plan Potential Rehabilitation Potential Good Status of Condition at Evaluation Evolving Summary Impairments Pain,Strength,Balance,Bed Mobility,Transfers,Gait Assessment Summary Maryuri is a 76 yo woman admitted following a fall which resulted in minimally displaced right pubic ramus fracture. Ortho recommends WBAT. Pt reports modified independent mobility at baseline with UPwalker, 4WW, or FWW depending on circumstance. She lives with her son and daughter in law who both work cook vegetable outside the home. Pt required mod/max assist with bed mobility and transfers using FWW on assessment. She will likely need SNF rehab to improve strength, transfers, and mobility independence before returning home. Will continue to assess. Goals Bed Mobility Goal Minimal Assistance Transfer Goal Minimal Assistance,Front Wheeled Walker Gait Goal Minimal Assistance,Front Wheel Walker Gait Distance 75 Other Goals - improve transfers and gait to CGA with FWW Days to Meet Goals 10 Frequency of Treatment Frequency Of Treatment Twice a Day Treatment Plan Physical Therapy Treatment Plan Bed Mobility Training,Transfer Training,Gait Training, Therapeutic Exercise,Balance Retraining,Discharge Planning, Hot or Cold Pack Other Recommendations and Next Treatment sit to stand practice; Focus transfers; progress to gait with FWW as tolerated Precautions Other Precautions falls Weight Bearing Status Weight Bearing Status Weight Bear as Tolerated Recommendations To Nursing Amount of Assist Needed 2 Person Assist Discharge Recommendations PT Discharge Recommendations SNF Rehab Transportation Needs at Discharge Wheelchair/Cabulance
--- NOTE | 2021-12-04 14:06 | CM.DANOTE ---
Patient is a 76 yo female who was admitted this morning 12/04/21 for GLF/Severe Pain. Pt has [employer] and [employer] for insurance and her PCP is Dr. Mathieu Smith. EMR was reviewed. Per MD, Ortho Consult and pt with superior ring fx nonoperable and can weight bare as tolerated. Pt currently having pain management issues. PT/OT ordered and pending. SW met bedside with pt and LUCHO/RUBA Marks and explained role and pt clearly in pain and DIL confirms that pt has lived with them since March 2021 about 8 months and has been very independent with ADL's and ambulated with walker independently and was participating in weekly outpt PT appointments until she fell 2 weeks ago and was significantly set back. Dtr states that currently they cannot safely assist pt at home and preference is SNF and pt is agreeable. SW discussed pt's current OBS Status since she is not needing surgical intervention and discussed barrier to SNF placement under the COVID waiver. DIL confirms that currently they cannot privately pay for SNF stay. SW provided the SNF Choice list and discussed lack of bed availability and DIL acknowledges understanding and preference would be 1)[facility] as they live on [facility] 2) [facility] but willing to accept any SNF that can accept pt under COVID waiver. Sunday is a barrier to contact admissions staff at most SNFs but SW made new referral to [facility] and left msg for María at [facility] and faxed referral. DIL states pt is fully vaccinated but received her first two doses [place] another state but has her Booster here in [place]. SW looked up pt in [facility] and only saw confirmation of booster but DIL has pt's COVID vax card at home if needed. PASRR will need to be completed if accepted at SNF. Plan: SW to follow closely with [facility] and [facility] in the morning to determine if they can accept pt under COVID waiver, otherwise need to reach out to other local SNFs. AYAD Leyva Discharge Planning/Care Management Advanced directive, confirm from FAMILY Start: 12/04/21 01:54 Freq: Q24H Status: Complete Protocol: Document 12/04/21 01:54 CW (Rec: 12/04/21 01:58 CW [id number]) Advance Directive, confirm on record Time 01:15 Person contacted LUC LYMAN Copy received No Time 01:30 Person contacted LUC LYMAN Copy received No Advanced directive available on record No CM Discharge Assessment Start: 12/04/21 14:02 Freq: Status: Active Protocol: Document 12/04/21 14:03 BF (Rec: 12/04/21 14:05 BF [id number]) Discharge Planning Assessment Assigned [employer] House Supervisor AYAD Bui DPOA/Assigned Designee Name Keagan Lyman Contact Information [phone] Advance Directives? No Advance Directives on File No History Provided By Patient,Family Member,Medical Record Has Patient been admitted in last 30 No days? Prior Living Arrangements House Household Members children Type of transporation used prior to Relies on Others admit Independent with ADL's Yes Is patient alert and oriented? Yes Needs Assistance With Home Chores / Shopping Caregiver for Another No Community Services used prior to Physical Therapy admission: Comment established for weekly appts at outpt PT DME Already Rented / Owned FWW / Walker Patient/Family Preference Long Term Facility Barriers to Discharge Yes Comment OBS Status, needs COVID waiver Discharge Plan Long Term Facility Transportation Arrangement likely facility van or POV with seat laid back Referrals Initiated Long Term If patient plan is SNF: Has PASSR been No completed? Medicare Choice List Provided Yes SNF/HH Preference 1) [facility] 2) [facility] Has Agency SNF been contacted Yes Whiteboard Updated in Patient Room with Yes name and ext. # of [employer] Supervisor Review Status In Process Please Provide Date Initial DC 12/04/21 Assessment Was Performed Next Review Type Continued Stay Review
[2021-12-04] MEDS: OXYCODONE IR 5 MG TABLET 10 MG PO ×2 (14:15→19:48)
[2021-12-04 14:34] LABS: Appearance Urine UA SL CLOUDY; Bilirubin Urine UA NEGATIVE (NEGATIVE); Color Urine UA YELLOW; Glucose Urine UA NEGATIVE (Negative); Ketones Urine UA NEGATIVE (NEGATIVE); Leukocyte Esterase Urine UA 2+ (NEGATIVE); Nitrite Urine UA POSITIVE (Negative); Occult Blood Urine UA TRACE-INTACT (Negative); Protein Urine UA TRACE (Negative); Urobilinogen Urine UA 0.2 E.U./dL (0.2)
[2021-12-04 14:35] LABS: pH Urine UA 5.5 (4.5-8.0)
[2021-12-04 14:40] LABS: Bacteria Urine Many (>30); Culture Indicated Urine Specimen Cultured; RBC Urine 1-5/HPF (0-5/HPF); WBC Urine 30-100/HPF (0-5/HPF)
[2021-12-04] MEDS: cefTRIAXone 1,000 MG in SODIUM CHLORIDE 0.9% 100 ML 200 ML IV (17:24)
[2021-12-04] MEDS: DIGOXIN 0.125 MG TABLET 0.25 MG PO (20:44)
[2021-12-04] MEDS: RIVAROXABAN 10 MG TABLET 20 MG PO (20:44)
[2021-12-04] MEDS: OXYBUTYNIN 5 MG ER TAB PO (20:44)
[2021-12-04] MEDS: MIRTAZAPINE 15 MG TABLET 45 MG PO (20:45)
[2021-12-04] MEDS: HYDROMORPHONE 1 MG INJ IV (21:08)
--- NOTE | 2021-12-04 21:37 | PC.NURSE ---
Patient repeatedly using bed dodd, 50-75mL output each time. Bladder scan showed 648mL. Provider notified and paz cath ordered. Immediately had 1200 mL out and counting. 16 fr, patient tolerated well. Significantly more relaxed and comfortable.
[2021-12-05] MEDS: OXYCODONE IR 5 MG TABLET 10 MG PO ×3 (02:11→19:15)
[2021-12-05 06:00] VITALS: BP 138/82; PULSE 61; RESP 18; TEMP 36.5; O2SAT 94
[2021-12-05] MEDS: LEVOTHYROXINE 125 MCG TABLET 250 MCG PO (06:47)
[2021-12-05] MEDS: PANTOPRAZOLE DR 40 MG TABLET PO (07:37)
[2021-12-05] MEDS: DOCUSATE 100 MG CAPSULE PO ×2 (09:04→21:10)
[2021-12-05] MEDS: fentaNYL 12 MCG/PATCH TOP (09:04)
[2021-12-05] MEDS: FERROUS SULFATE 325 MG TABLET PO (09:04)
[2021-12-05] MEDS: SERTRALINE 50 MG TABLET 150 MG PO (09:05)
[2021-12-05 09:23] VITALS: BP 145/78; PULSE 63; RESP 14; TEMP 36.3; O2SAT 93
--- NOTE | 2021-12-05 11:07 | PT.IPTN ---
Current Diagnoses Polyneuropathy, unspecified (12/04/21) Fracture of unspecified parts of lumbosacral spine and pelvis, initial encounter for closed fracture (12/04/21) Physical Therapy Treatment Note M2 PT-IP Current Condition Start: 12/04/21 09:06 Freq: NEEDED Status: Active Protocol: Document 12/04/21 13:53 AW (Rec: 12/04/21 14:29 AW [id number]) Physical Therapy Current Condition Current Condition Evaluation Date 12/04/21 Treatment Diagnosis R pubic ring fracture; impaired mobility and gait Onset Date 11/18/21 M3 PT-IP Subjective Start: 12/04/21 09:06 Freq: NEEDED Status: Active Protocol: Document 12/05/21 10:40 KS (Rec: 12/05/21 13:34 KS [id number]) Subjective Physical Therapy Visit Type Type Treatment Note Visit Start Time 10:40 Visit Stop Time 11:07 Total Visit Minutes 27 Notes Pt's daughter in law, Selina, was present throughout. Number of NURSING STAFF DEVELOPMENT COORDINATOR Visits 1 Physical Therapy Visit Comments Patient Comments Pt crying out in pain and needs motivation to participate. Therapy Pain Assessment Pain When Pain Assessed At Rest Pain Present Pain Present Pain Reported Location left side pelvis/groin Intensity 10 Scale Used Numeric (0 - 10) Pain Behaviors Calling Out,Crying,Facial Grimacing,Guarding,Moaning, Restlessness,Wincing Pain Management Techniques Distraction,Elevation, Modification of Treatment,Re- positioning,Timing of Activity with Medications M4 PT-IP Mobility and Gait Start: 12/04/21 09:06 Freq: NEEDED Status: Active Protocol: Document 12/05/21 10:40 KS (Rec: 12/05/21 13:34 KS [id number]) PT-Bed Mobility Assessment Supine to Sit Supine to Sit Maximum Assistance,2 Person Assistance Sit to Supine Sit to Supine Maximum Assistance,2 Person Assistance Scooting Scooting to Edge of Bed Maximum Assistance PT-Transfer Assessment Sit to and From Stand Sit to and from Stand Moderate Assistance,2 Person Assistance,Use of Upper Extremities Equipment Transfer Assistive Device Gait Belt,Front Wheeled Walker Orthotic/Prosthetic Devices or Brace: No Transfers Transfer Destination Bed Transfer Technique Lateral steps Transfer Ability Level of Assist Moderate Assistance,2 Person Assistance,Use of Upper Extremities Comments Mobility Comments Pt in bed reporting 10/10 pain upon arrival from therapy and needing motivation to participate Max A x2 for sup<> sit and scooting EOB w/ max cues. Pt able to maintain seated balance EOB. Mod A x2 and cues for sit<>stand w/ FWW . Pt verbalizing high level of pain during mobility, but able to take 5 small lateral steps towards HOB w/ Mod A x2 and FWW management w/ verbal and tactile cues. Mod A x2 for stand<>sit for slow descent and Max A x2 w/ cues for sit<> sup. Pt left in bed w/ all needs in reach and DIL in room . Gait Assessment Gait Gait Assistance Required: Moderate Assistance,2 Person Assist Distance (Feet) 3 Able to Maintain Weight Bearing Status Yes During Gait Assistive Devices Assistive Device Gait Belt,Front Wheeled Walker Orthotic/Prosthetic Devices or Brace: No Gait Deviations General Gait Pattern Antalgic,Decreased Stride Length,Decreased Feet Clearance,Flexed Trunk,Lateral Trunk Lean,Step-to Gait Factors Limiting Gait Function Factors Limiting Gait Function Pain,Poor Balance Comments Gait Comments Lateral steps towards HOB w/ FWW only, Mod A x2 and max cues and FWW mgmt. Stair Climbing Assessment Comments Stair Climbing Comments Not assessed. No stairs at home PT-Balance Assessment Sitting Balance and Reactions Static Sitting Balance Ability Fair Dynamic Sitting Balance Ability Fair Standing Balance and Reactions Static Standing Balance Ability Fair Dynamic Standing Balance Ability Poor Device Used FWW M5 PT-IP Objective Assessments Start: 12/04/21 09:06 Freq: NEEDED Status: Active Protocol: Document 12/04/21 13:53 AW (Rec: 12/04/21 14:29 AW [id number]) Orientation Orientation/Cognition Level of Alertness Alert Orientation Name,Day of Week,Place, Situation Language Function Ability No Deficits Noted Safety Awareness Understands Safety Issues Memory Description No Deficits Noted Strength Upper Extremity Strength Assessment Within Functional Limits Lower Extremity Strength Assessment Bilaterally Impaired Hip 3-/5 Knee 4-/5 Sensation Assessment Sensation Gross Sensation WNL M6 PT-IP Treatment Start: 12/04/21 09:06 Freq: NEEDED Status: Active Protocol: Document 12/05/21 10:40 KS (Rec: 12/05/21 13:34 KS [id number]) Physical Therapy Treatment Education Education Provided Weight Bearing Status,Safety Other Treatments Other Treatment Performed Continued education on WBAT and risks of immobility. M7 PT-IP Assessment and Plan Start: 12/04/21 09:06 Freq: NEEDED Status: Active Protocol: Document 12/05/21 10:40 KS (Rec: 12/05/21 13:34 KS [id number]) PT Summary Assessment and Plan Potential Rehabilitation Potential Good Status of Condition at Evaluation Evolving Summary Impairments Pain,Strength,Balance,Bed Mobility,Transfers,Gait Progress Towards Goals Slow Progress due to Pain Assessment Summary Pt still requiring Max A x2 for bed mobility and Mod A x2 for sit<>stand and lateral steps w/ FWW. She requires max cues and frequent motivation to complete all tasks. She is limited in mobility by high level of pain. At this time, pt will likely need SNF d/t high level of assist required and she does not have 24/7 assist at home. Will continue to assess progress. Goals Bed Mobility Goal Minimal Assistance Transfer Goal Minimal Assistance,Front Wheeled Walker Gait Goal Minimal Assistance,Front Wheel Walker Gait Distance 75 Other Goals - improve transfers and gait to CGA with FWW Days to Meet Goals 10 Frequency of Treatment Frequency Of Treatment Twice a Day Treatment Plan Physical Therapy Treatment Plan Bed Mobility Training,Transfer Training,Gait Training, Therapeutic Exercise,Balance Retraining,Discharge Planning, Hot or Cold Pack Other Recommendations and Next Treatment sit to stand practice; Focus transfers; progress to gait with FWW as tolerated Precautions Other Precautions falls Weight Bearing Status Weight Bearing Status Weight Bear as Tolerated Recommendations To Nursing Amount of Assist Needed 2 Person Assist Discharge Recommendations PT Discharge Recommendations Home with 24/7 Assist Available,Home Health,SNF Rehab,Home vs SNF Transportation Needs at Discharge Wheelchair/Cabulance
--- NOTE | 2021-12-05 11:10 | OT.IP.EVAL ---
Current Diagnoses Polyneuropathy, unspecified (12/04/21) Fracture of unspecified parts of lumbosacral spine and pelvis, initial encounter for closed fracture (12/04/21) Past Medical History (Last Updated 12/04/21 @ 09:38 by Kuldip Clement MD) Fracture of femoral neck, left History of total right hip arthroplasty Neuropathy Surgical History (Last Updated 12/04/21 @ 09:38 by Kuldip Clement MD) History of total right hip arthroplasty Occupational Therapy Inpatient Evaluation/Re-Eval M1 PT/OT-IP Prior Functional Status Start: 12/04/21 09:06 Freq: NEEDED Status: Active Protocol: Document 12/05/21 12:49 CGR (Rec: 12/05/21 13:05 CGR [id number]) Medical Review Prior Functional Status Medical History Reviewed Yes Communication WNL. Pt is an effective verbal communicator. She presents with increased anxiety. Mobility and Gait Pt uses an UPwalker, FWW, or 4WW depending on circumstance. She will occasionally use a manual w/c for appointments. She reports at least two injurious falls in the past year. Activities of Daily Living and IADL's Independent with all ADL's except SBA for showers. Pt's family assist with IADL's and driving. Prior Functional Level (Other details) Pt has been attending outpatient PT in [place]. Social History Household Members children Living Arrangements House Number of Floors (Floors) 3 or More Floors Number of Stairs To Enter/Railing? Pt has a level entrance through the garage and stays in the lower level apartment with no need to use stairs. Home Environment High Toilet,Walk in Shower Home Equipment Front Wheel Walker,Four Wheel Walker,Manual Wheelchair, Raised Toilet Seat w/Armrests, Shower Seat without Backrest, Fern Picker,Grab Bars Near Toilet, Grab Bars In Shower Employment Status Retired Additional Social History Comment Shower grab bars are suction cup. Pt has an adjustable bed Pt lives in the lower level apartment with her son and daughter in law living upstairs. 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 M1 PT/OT-IP Prior Functional Status Start: 12/05/21 12:49 Freq: NEEDED Status: Active Protocol: Document 12/05/21 12:49 CGR (Rec: 12/05/21 13:05 R [id number]) Medical Review Prior Functional Status Medical History Reviewed Yes Communication WNL. Pt is an effective verbal communicator. She presents with increased anxiety. Mobility and Gait Pt uses an UPwalker, FWW, or 4WW depending on circumstance. She will occasionally use a manual w/c for appointments. She reports at least two injurious falls in the past year. Activities of Daily Living and IADL's Independent with all ADL's except SBA for showers. Pt's family assist with IADL's and driving. Prior Functional Level (Other details) Pt has been attending outpatient PT in [place]. Social History Household Members children Living Arrangements House Number of Floors (Floors) 3 or More Floors Number of Stairs To Enter/Railing? Pt has a level entrance through the garage and stays in the lower level apartment with no need to use stairs. Home Environment High Toilet,Walk in Shower Home Equipment Front Wheel Walker,Four Wheel Walker,Manual Wheelchair, Raised Toilet Seat w/Armrests, Shower Seat without Backrest, Fern Picker,Grab Bars Near Toilet, Grab Bars In Shower Employment Status Retired Additional Social History Comment Shower grab bars are suction cup. Pt has an adjustable bed Pt lives in the lower level apartment with her son and daughter in law living upstairs. 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 M2 OT-IP Current Condition Start: 12/05/21 12:49 Freq: Status: Active Protocol: Document 12/05/21 12:49 CGR (Rec: 12/05/21 13:05 R [id number]) Occupational Therapy Current Condition Current Condition Evaluation Date 12/05/21 Treatment Diagnosis fall with R pubic rami fx Diagnosis Onset Date 12/04/21 Weight Bearing Status Weight Bearing Status Weight Bear as Tolerated M3 OT- IP Subjective and Pain Start: 12/05/21 12:49 Freq: Status: Active Protocol: Document 12/05/21 12:49 CGR (Rec: 12/05/21 13:05 R [id number]) OT- Subjective Occupational Therapy Visit Type Type Initial Evaluation Visit Start Time 10:45 Visit Stop Time 11:10 Total Visit Minutes 25 Notes Partial co-treat with P.T. OT Pain Assessment Pain When Pain Assessed During Mobility Pain Present Pain Present Pain Reported Location left side pelvis/groin Intensity 10 Scale Used Numeric (0 - 10) Management Techniques Distraction,Modification of Treatment,Re-positioning, Timing of Activity with Medications M4 OT- IP ADL's Start: 12/05/21 12:49 Freq: Status: Active Protocol: Document 12/05/21 12:49 CGR (Rec: 12/05/21 13:05 CGR [id number]) OT [id number] Comments OT Self-Feeding Comments Not meal time OT ADL-Grooming General Evaluation Grooming Ability Standby Assistance Areas Needing Assistance Face Washing Comments OT Grooming Comments supine in bed OT ADL-Oral Care Comments Oral Care Comments Pt declined to perform OT ADL-Dressing General Eval Lower Body Dressing Ability Total Assistance Areas Needing Assistance Socks OT ADL-Toileting General Evaluation Toileting Ability Total Assistance Comments OT Toileting Comments paz OT ADL-Bathing Comments OT Bathing Comments not performed M5 OT- IP IADL's Start: 12/05/21 12:49 Freq: Status: Active Protocol: Document 12/05/21 12:49 CGR (Rec: 12/05/21 13:05 CGR [id number]) OT-Instrumental Activities of Daily Living Deficits IADL Deficits Identified Deficits Home Safety Awareness Awareness of Need for Assistance at Home Decreased Awareness Ability to Problem Solve Emergency Unable to Problem Solve Situations Medication Management Medication Management Caregiver Administers Money Management Money Management Caregiver Provides Assistance Meal Preparation Meal Preparation Caregiver Provides Assist Bellman Bellman Caregiver Provides Assist Driving Driving Comments Pt does not drive M6 OT- IP Functional Cognition Start: 12/05/21 12:49 Freq: Status: Active Protocol: Document 12/05/21 12:49 CGR (Rec: 12/05/21 13:05 CGR [id number]) Cognitive Factors Limiting Selfcare Function Cognitive Ability Level of Alertness Alert Patient Orientation Name,Age,Birthday,Month,Date, Year,Day of Week,Situation Attention Span Ability Capable of Focused Attention, Capable of Sustained Attention Ability to Follow Commands Able to Follow One Step Commands with Increased Time, Able to Follow One Step Commands with Repetition Cognitive Comments Cognitive Assessment Comments Pt was unable to state that she was in [place] even after corrected. OT- Vision and Hearing OT- Hearing Assessment OT- Hearing Assessment Hearing Impaired OT- Vision Assessment Visual Acuity Glasses All The Time Visual Attentiveness WFL Occular Pursuits WFL Visual Convergence WFL Vision Assessment Comments Pt wears bifocals M7 OT- IP Mobility and Balance Start: 12/05/21 12:49 Freq: Status: Active Protocol: Document 12/05/21 12:49 CGR (Rec: 12/05/21 13:05 CGR [id number]) OT- Bed Mobility Assessment Supine to Sit Supine to Sit Assist Maximum Assistance,2 Person Assistance Sit to Supine Sit to Supine Assist Maximum Assistance,2 Person Assistance Scooting Scooting to Edge of Bed Maximum Assistance,2 Person Assistance OT-Transfer Assessment Sit to and From Stand Sit to and from Stand Moderate Assistance,2 Person Assistance Transfers Transfer Ability Moderate Assistance,2 Person Assistance Technique Transfer Destination Bed Transfer Technique Stand Step Pivot Devices Transfer Assistive Devices Gait Belt,Front Wheeled Walker Comments Mobility Comments Pt needed max a x 2 for bed mobility but was able to stand with mod x 2 using walker and take side steps to HOB. Pt with significant pain throughout but states improved pain after movement once positioned in bed at end of session. OT- Gait Assessment Comments Gait Ability Comments Not performed OT- Balance Assessment Sitting Balance and Reactions Static Sitting Balance Ability Good Dynamic Sitting Balance Ability Fair M8 OT- IP Objective Assessments Start: 12/05/21 12:49 Freq: Status: Active Protocol: Document 12/05/21 12:49 CGR (Rec: 12/05/21 13:05 R [id number]) OT Gross Range of Motion Upper Extremity Range of Motion Assessment Within Functional Limits OT Strength Upper Extremity Strength Assessment Within Functional Limits Comments Strength Comments 4+ to 5/5 throughout OT- Coordination Assessment Upper Extremity Finger to Nose Test Within Functional Limits Finger Tapping Test Within Functional Limits OT-Muscle Tone Assessment Muscle Tone WNL Yes OT Sensation Assessment Edema Edema Absent M9 OT- IP Assessment and Plan Start: 12/05/21 12:49 Freq: Status: Active Protocol: Document 12/05/21 12:49 CGR (Rec: 12/05/21 13:05 R [id number]) OT Summary Assessment and Plan Potential Rehabilitation Potential Excellent Analytic Complexity at Evaluation Moderate Summary OT Impairments Pain,Balance,Functional Cognition,Functional Mobility, Grooming,Dressing,Toileting, Bathing,Toilet Transfers, Shower Transfers,Activity Tolerance Progress Towards Goals Slow Progress due to Pain Assessment Summary Pt presents as a moderate complexity evaluation s/p admit for fall with pubic rami fx. Pt is WBAT but is having significant pain that is impacting her ability to perform functional mobility and ADLs at this time. Pt will benefit from continued OT services and SNF upon discharge vs home depending on pain management and pt's abilities at that time. Current recommendation is for SNF as pt requires more assist than the family is able to provide. Goals Grooming Goal Independent Dressing Goal Independent Toileting Goal Independent Bathing Goal Independent Toilet Transfer Goal Independent Shower Transfer Goal Independent Days to Meet Goals 30 Frequency of Treatment Frequency Of Treatment Once a Day Treatment Plan OT Treatment Plan ADL Training,Functional Cognition Training,Functional Mobility,Patient/Family Education,Discharge Planning Other Treatment Recommendations and Next ADLs seated if tolerated. Treatment Focus Transfer to chair with 2 person assist. Discharge Recommendations OT Discharge Recommendations SNF Rehab,Home vs SNF Transportation Needs at Discharge Stretcher/Ambulance
[2021-12-05] MEDS: HYDROMORPHONE 1 MG INJ IV (11:27)
--- NOTE | 2021-12-05 11:51 | PC.NURSE ---
gave patient 1mg dilaudid for pain. pt unable to wait for next pain meds. pt desat to 86% ra, placed 2L nc 93%
--- NOTE | 2021-12-05 12:26 | CM.DPC ---
Addendum entered by Emelia Babin 12/05/21 13:59: Spoke with Dr. Smith whom is in agreement to write SNF orders in AM. Dr. Smith reports that [facility] is fine for patient and closer for family than [facility] [place] facility. P: [facility] in AM. TOM Original Note: DCP/continued: Reviewed chart. Current d/c plan is SNF under COVID waiver. MERCHANDISE DIRECTOR met with patient and daughter/Selina at bedside explained CM team role. Daughter in agreement to short SNF stay for patient. Daughter prefers that patient go to SNF in [place] but they have no female beds. Referral faxed to both [facility] and [facility]. MERCHANDISE DIRECTOR placed call to April at [facility] and she reports that they can accept patient with COVID waiver tomorrow 12/06/21. Also spoke with [facility] and they continue to review. Therefore, at this time bed secured at [facility]. Copy of COVID vaccine provided to CM team via email. MERCHANDISE DIRECTOR placed call to Dr. Smith to update him on above. Left message with his nurse requesting call back. Anticipate d/c tomorrow 12-06-21 to [facility]. PASSR completed. P: Pending. TOM
--- NOTE | 2021-12-05 13:07 | PM.PN.1 ---
Subjective Subjective Date Patient Seen: 12/05/21 Time Patient Seen: 08:30 Interval history: Patient seen today in follow-up of multiple issues. Primarily her pelvic fracture with pain. And UTI. No other changes. Patient has had no fevers no chills pain is still significant. Minimal mobilization. Exam Vital Signs (past 8 hours): - 12/05/21 06:00 12/05/21 09:23 Temperature 97.7 F 97.3 F L Pulse Rate 61 63 Respiratory Rate 18 14 Blood Pressure 138/82 145/78 H Pulse Oximetry 94 93 Oxygen Delivery Method Room Air Oxygen Flow Rate 0 Narrative Exam Narrative: Alert elderly female in no acute distress. Lungs are clear. Heart regular rate and rhythm. Abdomen is soft positive bowel sounds nontender. Objective Labs Result Diagrams: 12/04/21 00:05 12/04/21 00:05 Labs: Laboratory Results - last 24 hr 12/04/21 14:06 Urine Color Yellow Urine Appearance Sl cloudy Urine pH 5.5 Ur Specific [place] 1.020 Urine Protein Trace H Urine Glucose (UA) Negative Urine Ketones Negative Urine Occult Blood Trace-intact Urine Nitrate Positive H Urine Bilirubin Negative Urine Urobilinogen 0.2 Ur Leukocyte Esterase 2+ H Urine RBC 1-5/hpf Urine WBC 30-100/hpf H Urine Bacteria Many (>30) H Ur Culture Indicated? Specimen cultured [facility] Medical History (Updated 12/04/21 @ 09:38 by Kuldip Clement MD) Fracture of femoral neck, left Neuropathy Surgical History (Updated 12/04/21 @ 09:38 by Kuldip Clement MD) History of total right hip arthroplasty Social History household members: children Smoking Status: Never smoker alcohol intake: current Assessment & Plan Assessment & Plan narrative: UTI. Will discontinue ceftriaxone an added Ceftin. Suspect 5 days. Recheck urine as outpatient. Urinary retention. Patient with Peck. I would prefer she did go home without if she can urinate on a regular basis. We will discontinue Peck and then follow. Pelvic fracture. Pain still significant. Not getting good control with intermittent oxycodone will try low-dose fentanyl patch and oxycodone for breakthrough. Will see how things go. Mobilize as able. Placement will be at rehab center hopefully tomorrow. Atrial fibrillation. Stable. Continue usual medicines. Hypothyroidism. Does recently adjusted. Still not at euthyroid but will follow as outpatient. Depression. Not helped by the fracture but doing okay. Continue usual medicines. GERD stable. No other changes. Urinary incontinence stable will continue her usual meds. DVT prophylaxis on AFib prophylaxis no need for treatment Code status full. Disposition. Discussed with social Service. Appears as if we have a bed will go tomorrow. 35 minutes spent coordinating care orders and dictating. Time Spent With Patient Critical Care time: I spent a total of [] minutes of critical care time on this patient's care today; this time is exclusive of procedural time.
--- NOTE | 2021-12-05 15:35 | PT-IP ANOTE ---
Attempted to see pt at 15:35, pt sleeping upon arrival and refused due to fatigue.
--- NOTE | 2021-12-05 16:05 | P.PN_ITS ---
Subjective Subjective Date Patient Seen: 12/05/21 Time Patient Seen: 16:05 Interval history: The patient is complaining of moderate pelvic pain. She is concerned about ambulation, and has been working with PT. Exam Vital Signs (past 8 hours): - 12/05/21 09:23 Temperature 97.3 F L Pulse Rate 63 Respiratory Rate 14 Blood Pressure 145/78 H Pulse Oximetry 93 Oxygen Delivery Method Room Air Oxygen Flow Rate 0 Narrative Exam Narrative: 76yo female, resting comfortably in bed, no acute distress. Bilateral lower extremities: motor function is grossly intact, sensation is grossly intact to light touch, bilateral calves are soft and nontender to palpation. Objective Labs Result Diagrams: 12/04/21 00:05 12/04/21 00:05 [facility] Medical History Fracture of femoral neck, left Neuropathy Surgical History History of total right hip arthroplasty Social History household members: children Smoking Status: Never smoker alcohol intake: current Assessment & Plan Assessment & Plan narrative: Weight bear as tolerated right lower extremity.? Crutches or walker for comfort She has a nondisplaced pubic ramus fracture on the right.? There is no restriction to weight-bearing.? She may require assisted weight- bearing with a walker. --d/c to SNF once cleared by hospitalist --mobilize with physical therapy.? - Formal orthopedic follow-up is unnecessary however if pain continues she can follow-up at our office. Time Spent With Patient Critical Care time: I spent a total of [] minutes of critical care time on this patient's care today; this time is exclusive of procedural time.
[2021-12-05 17:07] LABS: COVID19 -Nasal RAPID Negative (Negative)
[2021-12-05 18:43] VITALS: BP 129/67; PULSE 65; RESP 14; TEMP 36.8; O2SAT 96
[2021-12-05 19:20] VITALS: BP 145/58; PULSE 67; RESP 18; TEMP 37.1; O2SAT 98
[2021-12-05 21:09] VITALS: BP 126/63; PULSE 64
[2021-12-05] MEDS: DIGOXIN 0.125 MG TABLET 0.25 MG PO (21:09)
[2021-12-05] MEDS: MIRTAZAPINE 15 MG TABLET 45 MG PO (21:10)
[2021-12-05] MEDS: RIVAROXABAN 10 MG TABLET 20 MG PO (21:10)
[2021-12-05] MEDS: OXYBUTYNIN 5 MG ER TAB PO (21:10)
[2021-12-06 03:00] VITALS: BP 150/87; PULSE 89; RESP 18; TEMP 36.7; O2SAT 94
--- NOTE | 2021-12-06 03:35 | PC.NURSE ---
Pt was not able to void after Peck was removed around 1700 12/05. This RN allowed the patient some extra time to try to relax and void while wearing a brief after attempting to use the bedpan and bedside commode. Patient was still not able to void and a bladder scan showed 650-[address] Rice was called at 0310 and telephone orders were given to place another Peck. Peck was placed at 0325 and patient tolerated well. 750cc was emptied from the Epck after insertion.
[2021-12-06] MEDS: OXYCODONE IR 5 MG TABLET 10 MG PO (06:09)
[2021-12-06] MEDS: PANTOPRAZOLE DR 40 MG TABLET PO (06:09)
[2021-12-06] MEDS: LEVOTHYROXINE 125 MCG TABLET 250 MCG PO (06:09)
[2021-12-06 07:10] LABS: Add Manual Diff / Slide Review NO; Basophils Absolute Auto 100 /uL (0-100); Basophils Percent Auto 0.8 % (0-2); Eosinophils Absolute Auto 100 /uL (0-450); Eosinophils Percent Auto 1.1 % (2-4); Hematocrit 35.6 % (36-46); Hemoglobin 11.8 g/dL (12.0-16.0); Lymphocytes Absolute Auto 1500 /uL (1100-4500); Lymphocytes Percent Auto 20.8 % (25-40); Mean Corpuscular HGB Conc 33.3 % (30-36); Mean Corpuscular Hemoglobin 31.6 PG (26-34); Mean Corpuscular Volume 94.9 fL (80-100); Monocytes Absolute Auto 600 /uL (0-900); Monocytes Percent Auto 8.1 % (3-14); Neutrophils Absolute Auto 5100 /uL (1500-7000); Neutrophils Percent Auto 69.2 % (50-75); Platelet Count 326 X10^3/uL (150-400); Red Blood Cell Count 3.74 X10^6/uL (4.0-5.2); Red Cell Distribution Width 13.6 % (11.6-14.8); White Blood Cell Count 7.4 X10^3/uL (4.5-11.0)
[2021-12-06 07:29] LABS: BUN Creatinine Ratio 17.8 (6-22); Blood Urea Nitrogen 16 mg/dL (7-17); Calcium 8.8 mg/dL (8.4-10.2); Carbon Dioxide 32 mmol/L (22-32); Chloride 105 mmol/L (98-107); Estimated Glomerular Filt Rate > 60.0 mL/min (>60); Glucose 88 mg/dL (80-110); HEMOLYSIS < 15 (0-50); Potassium 3.9 mmol/L (3.4-5.1); Sodium 139 mmol/L (137-145)
--- NOTE | 2021-12-06 08:18 | PM.DS.1 ---
History of Present Illness History of Present Illness Date Patient Seen: 12/06/21 Time Patient Seen: 08:20 Date of Onset of Symptoms: 11/22/21 Chief complaint: SEVERE RT BACK/LEG PAIN Narrative: See H&P previously dictated Discharge Providers Provider Date of admission: 12/04/21 00:34 Discharge Date: 12/06/21 Primary care physician: Mathieu Smith MD Consults: 12/04/21 00:33 Consult to Orthopedic Surgery Stat Comment: Consulting Provider: Kuldip Clement Reason for consultation: pelvic fracture Has provider been notified: Yes 12/04/21 01:53 Consult to Dietitian, Adult Routine Comment: Reason For Exam: WEIGHT LOSS, DECREASE IN APPETITE 12/04/21 03:37 Consult to Occupational Therapy Evaluate & Treat Comment: Physician Instructions: Evaluate and treat Consult to Physical Therapy Evaluate & Treat Comment: Physician Instructions: Evaluate and Treat Discharge provider: Mathieu Smith MD Summary Hospital Course Discharge Diagnosis: Pelvic rami fracture nondisplaced right side UTI Urinary retention Atrial fibrillation Hypothyroidism Depression Hospital Course: Pelvic rami fracture. Patient was admitted and CT was obtained which showed a nondisplaced right pubic rami fracture. Orthopedist was consulted and felt that she could be mobilized as tolerated. Due to patient's pain which was quite severe she was treated with oral medicine and allotted she was switched to fentanyl topical and breakthrough hydrocodone which seem to be working. Will need to be followed as an outpatient. Discharge to rehab center for pain control and rehab help. Hopefully short term. UTI patient will be discharged on Ceftin. For 5 days. Will need repeat urine in the next 2 weeks. Urinary retention. Patient had brief period of urinary retention which was treated with indwelling Peck. She has done well since discontinuation of the Peck catheter. Atrial fibrillation stable throughout the course or admission. Will continue on her usual meds including anticoagulation. Hypothyroidism. Patient has significant hypothyroidism which is slowly being brought up to appropriate levels. And will be followed as an outpatient by me. Depression. This has been a long-standing issue and was difficult to the holidays due to her 1st time without her but is stable now. Will be followed. GERD. Continue usual meds no change. Exam Vital Signs (past 8 hours): - 12/06/21 03:00 Temperature 98.0 F Pulse Rate 89 Respiratory Rate 18 Blood Pressure 150/87 H Pulse Oximetry 94 Oxygen Delivery Method Room Air Oxygen Flow Rate 0 Narrative Exam Narrative: Alert mildly fatigued-appearing female in no acute distress. Lungs are clear. Heart regular rate and rhythm. Abdomen is soft positive bowel sounds nontender. Extremities without cyanosis clubbing edema. Neurologic exam is normal. Objective Labs Result Diagrams: 12/06/21 06:15 12/06/21 06:15 Labs: Laboratory Results - last 24 hr 12/05/21 12/06/21 12/06/21 16:33 06:15 06:15 WBC 7.4 RBC 3.74 L Hgb 11.8 L Hct 35.6 L MCV 94.9 MCH 31.6 MCHC 33.3 RDW 13.6 Plt Count 326 Neut % (Auto) 69.2 Lymph % (Auto) 20.[address] [place] % (Auto) 8.1 Eos % (Auto) 1.1 L Baso % (Auto) 0.8 Neut # (Auto) 5100 Lymph # (Auto) 1500 [place] # (Auto) 600 Eos # (Auto) 100 Baso # (Auto) 100 Sodium 139 Potassium 3.9 Chloride 105 Carbon Dioxide 32 BUN 16 Creatinine 0.90 Estimated GFR > 60.0 BUN/Creatinine Ratio 17.8 Glucose 88 Calcium 8.8 SARS-CoV-2 (PCR) Negative [facility] Medical History Fracture of femoral neck, left Neuropathy Surgical History History of total right hip arthroplasty Social History household members: children Smoking Status: Never smoker alcohol intake: current Discharge Assessment & Plan Assessment and Plan Assessment: Stable pelvic fracture with [employer] wrist pain. Better controlled but will need Plan of Treatment: . Discharge today. Discharge Plan Discharge Plan Patient Disposition: SNF Transfer to: [facility] Under care of provider: house provider Transportation: Wheelchair Consult as needed: Dental, Hearing, Mental health, Podiatry and Vision I certify the postop hospital intermediate care is medically necessary on a continuing basis for any conditions for which he/ she received care during this hospitalization.: Yes The receiving facility has agreed to accept transfer and provide medical treatment.: Yes Discharge orders & Medications Prescriptions: New docusate sodium 100 mg Capsule 100 mg PO BID Qty: 30 0RF oxycodone 5 mg Tablet 10 mg PO Q6HR PRN (Reason: Pain, Moderate (4-6)) Qty: 42 0RF fentanyl 12 mcg/hr Patch 72 Hour 12 mcg topical Q72H Qty: 10 0RF Continued levothyroxine [Synthroid] 175 mcg tablet 250 mcg PO QAM 0RF Label Comments: Take 1 tablet by mouth once a day for thyroid replacement. sertraline 100 mg tablet 150 mg PO DAILY 0RF digoxin 250 mcg (0.25 mg) tablet 250 mcg PO BEDTIME 0RF Label Comments: Take 1 tablet by mouth once a day tolterodine 2 mg tablet 2 mg PO BEDTIME 0RF Label Comments: Take 1 tablet by mouth once a day ferrous sulfate 325 mg (65 mg iron) Tablet 325 mg PO DAILY 0RF omeprazole 20 mg capsule,delayed release(DR/EC) 20 mg PO DAILY 0RF Label Comments: TAKE 1 CAPSULE BY MOUTH TWICE DAILY mirtazapine 45 mg tablet 45 mg PO BEDTIME 0RF vitamin B complex [B Complex-Vitamin B12] Tablet 1 tab PO DAILY 0RF Xarelto 20 mg tablet 20 mg PO BEDTIME 0RF Label Comments: TAKE 1 TABLET BY MOUTH EVERY DAY Follow up/Referrals: Mathieu Smith MD [Primary Care Provider] - 2 Weeks Discharge Health Status Multidrug resistant organism: No MDRO MDRO Verified by culture: Yes Date verified: 12/04/21 Precautions: [place] Diet/Activity/Treatments Diet: Diet as Tolerated Liquid consistency: Normal/Thin Food texture: Regular Activity: as tolerated with PT need to encourage activity Skin/Wound/Dressing Care Report to your healthcare provider any signs of infection, such as:: chills, fever, night sweats, increased pain and unusual redness [facility] Reason for rehabilitation: Recovery r/t decondition Rehab type: Physical therapy and Occupational therapy Restrictions to mobility: pelvic fracture Discharge Data Primary Care Provider: Mathieu Smith Attending Provider: Mathieu Smith
[2021-12-06] MEDS: FERROUS SULFATE 325 MG TABLET PO (08:20)
[2021-12-06] MEDS: SERTRALINE 50 MG TABLET 150 MG PO (08:21)
[2021-12-06] MEDS: DOCUSATE 100 MG CAPSULE PO (08:21)
[2021-12-06] MEDS: cefUROXime 250 MG TABLET 500 MG PO (09:50)
[2021-12-06 11:29] VITALS: BP 136/67; PULSE 67; RESP 19; TEMP 36.8; O2SAT 96
--- NOTE | 2021-12-06 11:30 | PT-IP ANOTE ---
Pt refused therapy at 11:30 due to increased pain from recent mobilization and wanting to rest prior to upcoming transfer to SNF at 1300.
--- NOTE | 2021-12-06 11:43 | CM.DPC ---
DCP/continued: Reviewed chart. Received notification from provider that patient medically stable to transfer to SNF today. NUTRITION PROGRAM INSTRUCTOR obtained orders and faxed them to [facility] [place]. Placed call to [facility] [place] spoke with Cesia. She confirms that they can accept today. Cesia reports that patient scheduled to be picked up around 1:00pm. NUTRITION PROGRAM INSTRUCTOR notified patient and family. RN given number to call nursing report. No additional needs identified. [facility]. TOM
--- NOTE | 2021-12-06 12:01 | PC.NURSE ---
Addendum entered by Dion Vaughn R.N. 12/06/21 14:29: Pt readied for d/c to [facility]. Daughter has belongings. Pt transferred to [facility] with three assist. Pt was able to stand and pivot safely to w/. She needs a lot of encouragement but does physically well though slowly. Original Note: Pt moving over to [facility] at 13:00. Family aware and daughter here. Pt taking meds well though slowly PO. Follows commands. Mostly quiet. Offers no c/o pain at present.
== END 2021-12-06 13:15 ==
LOC: ED 12-04 00:27 → ICU 12-04 08:34 → AC 12-05 06:59 → ICU 12-05 13:09
PROVIDERS: Admitting Provider Family Medicine; Emergency Provider Emergency Medicine; PCP Family Medicine; Referring Provider Emergency Medicine; Visit Provider Family Medicine
DX: S32.89XA Fracture of other parts of pelvis, initial encounter for closed fracture (principal); R07.9 Chest pain, unspecified; N39.0 Urinary tract infection, site not specified; R33.9 Retention of urine, unspecified; W18.39XA Other fall on same level, initial encounter; R32 Unspecified urinary incontinence; Y92.009 Unspecified place in unspecified non-institutional (private) residence as the place of occurrence of the external cause; I48.91 Unspecified atrial fibrillation; F32.9 Major depressive disorder, single episode, unspecified; Z79.01 Long term (current) use of anticoagulants; E03.9 Hypothyroidism, unspecified; Z20.822 Contact with and (suspected) exposure to COVID-19
CPT/HCPCS: 36415; 72131; 72192; 80048; 80053; 81001; 85007; 85025; 87077; 87086; 87186; 87635; 87797; 96365; 96366; 96372; 96375; 96376; 97162; 97166; 97530; 97535; 99222; 99284; C9803; G0378; J0696; J1170; J2060

== ENCOUNTER → 2021-12-13 13:23 | Outpatient (ROUT) | payer SELFPAY ==
[2021-12-04 00:41] VITALS: BMI 26.2
[2021-12-13 13:30] LABS: Appearance Urine UA SL CLOUDY; Bilirubin Urine UA 1+ (NEGATIVE); Color Urine UA YELLOW; Glucose Urine UA NEGATIVE (Negative); Ketones Urine UA TRACE (NEGATIVE); Leukocyte Esterase Urine UA TRACE (NEGATIVE); Nitrite Urine UA NEGATIVE (Negative); Occult Blood Urine UA NEGATIVE (Negative); Protein Urine UA 2+ (Negative); Specific Gravity Urine UA 1.025 (1.000-1.035); Urobilinogen Urine UA 0.2 E.U./dL (0.2)
[2021-12-13 13:46] LABS: Bacteria Urine Few (2-10); Hyaline Casts Urine 1-5/LPF; Ictotest Urine Negative (Negative); Mucus Urine 1+ (Negative); RBC Urine None Seen (0-5/HPF); Squamous Epithelial Cell Urine 1-5 /HPF (0-5/HPF); WBC Urine 10-30/HPF (0-5/HPF)
[2021-12-13 13:47] LABS: Culture Indicated Urine Specimen Cultured
== END ==
PROVIDERS: PCP Family Medicine; Visit Provider Emergency Medicine
DX: R41.82 Altered mental status, unspecified (principal)
CPT/HCPCS: 81001; 87077; 87086; 87186

== ENCOUNTER → 2022-01-04 11:52 | Outpatient (ROUT) | payer SELFPAY ==
[2021-12-04 00:41] VITALS: BMI 26.2
[2022-01-04 12:17] LABS: Appearance Urine UA CLOUDY; Bilirubin Urine UA NEGATIVE (NEGATIVE); Color Urine UA YELLOW; Glucose Urine UA NEGATIVE (Negative); Ketones Urine UA NEGATIVE (NEGATIVE); Leukocyte Esterase Urine UA 2+ (NEGATIVE); Nitrite Urine UA NEGATIVE (Negative); Occult Blood Urine UA TRACE-INTACT (Negative); Protein Urine UA 1+ (Negative); Urobilinogen Urine UA 0.2 E.U./dL (0.2)
[2022-01-04 12:19] LABS: Bacteria Urine Many (>30); Culture Indicated Urine Cult Not Indicated; RBC Urine None Seen (0-5/HPF); Squamous Epithelial Cell Urine 10-30 /HPF (0-5/HPF); WBC Urine 10-30/HPF (0-5/HPF)
== END ==
PROVIDERS: PCP Family Medicine; Visit Provider Emergency Medicine
DX: N39.0 Urinary tract infection, site not specified (principal)
CPT/HCPCS: 81001; 87077; 87086; 87186

== ENCOUNTER 2022-05-24 12:15 | Emergency (ER) | payer MEDICARE, OTHER, SELFPAY ==
[2021-12-04 00:41] VITALS: BMI 26.2
[2022-05-24 12:50] VITALS: BP 138/65; PULSE 79; RESP 18; TEMP 36.3; O2SAT 100
--- NOTE | 2022-05-24 13:02 | DI.RAD.S_ITS ---
PROCEDURE: XR HIP W PEL IF DONE RT 2V INDICATIONS: fall last night, hx pelvis fx last year TECHNIQUE: AP pelvis with lateral view(s) of the right hip(s). COMPARISON: [facility], CT, CT PEL WO CON, 12/03/2021, 23:00. [facility], CR, XR HIP W PEL IF DONE RT 2V, 11/22/2021, 16:36. FINDINGS: Bones: Patient is status post prior surgical pinning of left hip and right total hip arthroplasty. Right hip alignment is unchanged from prior study. No gross acute fracture or dislocation. No gross hardware loosening or failure. Previously described right superior and possibly inferior pubic rami fractures near symphysis pubis are again seen. Pelvic ring appears intact. No suspicious bony lesions. Soft tissues: The visualized bowel gas pattern is normal. No suspicious soft tissue calcifications. IMPRESSION: Old right superior and inferior right pubic ramus fracture. No acute right hip fracture or dislocation. No gross hardware complication. Dictated by: Rob Lantigua M.D. on 05/24/2022 at 13:50 Approved by: Rob Lantigua M.D. on 05/24/2022 at 13:53
--- NOTE | 2022-05-24 13:05 | ED_ITS ---
HPI - Fever <Lian Burden, [facility] - Last Filed: 05/24/22 15:08> General Chief Complaint: Fall Stated Complaint: Pt. 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 Presents to the emergency department today with a fall/slide down onto her coccyx. She has a history of a closed pelvic fracture last year, she lives with her son and wkgxpkwj-xb-cir, is well cared for at home, zmaeafni-by-yod reports that patient accidentally took her nighttime medications at 1000 hours yesterday instead of in the evening which may have contributed to some of her confusion. Patient's lflwmynb-xe-lxe reports that she has a history of some memory loss with a score of on her last appointment with Dr. Smith her PCP. Patient endorses a history of left shoulder pain and she goes to physical therapy for this twice a week, they have been working with her on this. Patient denies any chest pain, shortness of breath, dizziness, difficulty breathing, dysuria, abdominal pain, nausea new back pain, endorses right hip and coccyx pain. She is ambulatory but not much at baseline, she uses a wheelchair a walker at home. She no longer takes fentanyl patches, oxycodone, or other sedating meds. Patient had Tylenol this morning at 1030 from her wfrawuam-ee-jey. Patient denies any headache, denies hitting her head, this was not witnessed but her hiakpclk-wy-vda was in another room and did not find her with any injuries at that time. Related Data Home Medications Medication Instructions Recorded Confirmed digoxin 250 mcg (0.25 mg) tablet 250 mcg PO BEDTIME 12/04/21 12/04/21 ferrous sulfate 325 mg (65 mg 325 mg PO DAILY 12/04/21 12/04/21 iron) tablet levothyroxine 175 mcg tablet 250 mcg PO QAM 12/04/21 12/04/21 (Synthroid) mirtazapine 45 mg tablet 45 mg PO BEDTIME 12/04/21 12/04/21 omeprazole 20 mg capsule,delayed 20 mg PO DAILY 12/04/21 12/04/21 release rivaroxaban 20 mg tablet (Xarelto) 20 mg PO BEDTIME 12/04/21 12/04/21 sertraline 100 mg tablet 150 mg PO DAILY 12/04/21 12/04/21 tolterodine 2 mg tablet 2 mg PO BEDTIME 12/04/21 12/04/21 vitamin B complex (B 1 tab PO DAILY 12/04/21 12/04/21 Complex-Vitamin B12 tablet) Previous Rx's Medication Instructions Recorded docusate sodium 100 mg capsule 100 mg PO BID #30 caps 12/06/21 fentanyl 12 mcg/hr transdermal 12 mcg topical Q72H #10 ea 12/06/21 patch oxycodone 5 mg tablet 10 mg PO Q6HR PRN Pain, Moderate 12/06/21 (4-6) #42 tabs cephalexin 500 mg tablet 500 mg PO BID 5 days #10 tabs 05/24/22 lidocaine 5 % topical patch 1 patch topical BID PRN pain #15 ea 05/24/22 (Lidoderm) Allergies Allergy/AdvReac Type Severity Reaction Status Date / Time gabapentin Allergy Verified 01/05/22 11:54 Review of Systems <ELENI Zaragoza - Last Filed: 05/24/22 15:08> Review of Systems Narrative: General: denies fever, chills, endorses some memory loss at baseline Head/Neck: denies headache, neck pain Eyes: denies visual changes, eye pain Cardio: denies chest pain, palpitations Respiratory: denies shortness of breath, cough GI: denies abdominal pain, nausea, vomiting, or diarrhea : denies dysuria, hematuria or flank pain MSK: denies new joint pain, muscle weakness or swelling Skin: denies rash, itching or wound Neuro: denies numbness, tingling, dizziness Patient History <ELENI Zaragoza - Last Filed: 05/24/22 15:08> Medical History Fracture of femoral neck, left Neuropathy Surgical History History of total right hip arthroplasty Social History household members: children Smoking Status: Never smoker alcohol intake: current Smoking Status: Never smoker alcohol intake frequency: a few times a month Substance Use Type: marijuana Exam <ELENI Zaragoza - Last Filed: 05/24/22 15:08> Narrative Exam Narrative: Independently reviewed vitals signs and nursing notes. General: cooperative, comfortable, in no acute distress, well groomed, memory loss, clear speech Head: atraumatic, symmetrical facial expressions Neck: supple Eyes: equal round and reactive, EOMI, conjunctiva normal Nose: nares patent, no rhinorrhea Mouth/Throat: moist mucus membranes Cardiovascular: Irregular rate and rhythm, no peripheral edema, warm extremities, no murmurs rubs or gallops Respiratory: normal effort, able to speak in complete sentences, no audible whee zing, stridor, or rales. No retractions or tachypnea. GI: abdomen soft, nontender to palpation, nondistended, no masses, no exquisite tenderness with exam, without guarding or rebound. MSK: moves all extremities, neurovascularly intact, no significant weakness or unilateral changes, normal tone Skin: brisk capillary refill, no rash, no erythema Neuro: normal speech, memory loss, A&O x3 Psych: mental status is grossly normal, congruent mood, normal affect, pleasant and cooperative Initial Vital Signs Initial Vital Signs: Vital Signs Temperature 97.3 F L 05/24/22 12:50 Pulse Rate 79 05/24/22 12:50 Respiratory Rate 18 05/24/22 12:50 Blood Pressure 138/65 05/24/22 12:50 Pulse Oximetry 100 05/24/22 12:50 Oxygen Delivery Method 05/24/22 12:50 <Renee Hylton DO - Last Filed: 05/24/22 20:21> Initial Vital Signs Initial Vital Signs: Vital Signs Temperature 97.3 F L 05/24/22 12:50 Pulse Rate 79 05/24/22 12:50 Respiratory Rate 18 05/24/22 12:50 Blood Pressure 138/65 05/24/22 12:50 Pulse Oximetry 100 05/24/22 12:50 Oxygen Delivery Method 05/24/22 12:50 Scores <ELENI Zaragoza - Last Filed: 05/24/22 15:08> [facility] CT Head Rule Patient on blood thinners: Yes Seizure after injury: No GCS < 15 at 2 hr post trauma: No Suspected open or depressed skull fracture: No Any sign of basilar skull fracture (hemotympanum, raccoon eyes, Lara's sign, CSF marcelle-/rhinorrhea): No Two or more episodes of vomiting: No Age greater or equal to 65 years: Yes Retrograde amnesia to the event greater or equal to 30 min: No Dangerous Mechanism (pedestrian vs. mv, occupant ejected from mv, fall from >3 ft or > 5 stairs): No Recommendation: Consider CT. The [place] Head CT Rule cannot rule out need for Imaging. <Renee Hylton DO - Last Filed: 05/24/22 20:21> [facility] CT Head Rule Recommendation: Consider CT. The [place] Head CT Rule cannot rule out need for Imaging. Course <ELENI Zaragoza - Last Filed: 05/24/22 15:08> Orders Ordered: ED Orders 05/24/22 13:02 XR hip w pel if done RT 2V Stat EKG-12 Lead Stat 05/24/22 13:06 CBC Auto Diff [Complete Blood Count AUTO DIFF] Stat CMP [Comprehensive Metabolic Panel] Stat Digoxin Stat Magnesium Stat Procalcitonin Stat TSH [Thyroid Stimulating Hormone] Stat Troponin & CK Cardiac Panel Stat Urine Culture Stat Urine Microscopic Stat 05/24/22 13:28 CT head/brain wo con Stat 05/24/22 13:41 XR chest 1V Stat 05/24/22 14:44 EKG-12 Lead Routine Discontinued Medications Ceftriaxone Sodium 1,000 mg/ (Sodium Chloride) 100 mls @ 200 mls/hr IV NOW ONE Stop: 05/24/22 14:02 Last Infusion: 05/24/22 14:39 Dose: 0 mls/hr Documented By: Admin: 05/24/22 14:10 Dose: 200 mls/hr Documented By: BS Lidocaine (Lidocaine Patch 1 Each Adh..Patch) 1 each TOP NOW ONE Stop: 05/24/22 13:03 Last Admin: 05/24/22 14:09 Dose: 1 each Documented By: BS Vital Signs Vital signs: Vital Signs - 8 hr 05/24/22 12:50 05/24/22 13:44 05/24/22 13:44 Temperature 97.3 F L Pulse Rate 79 75 Respiratory Rate 18 Blood Pressure 138/65 144/77 H Pulse Oximetry 100 100 Oxygen Delivery Method Room Air 05/24/22 14:01 05/24/22 14:30 Temperature Pulse Rate 85 74 Respiratory Rate 24 Blood Pressure Pulse Oximetry 98 98 Oxygen Delivery Method <Renee Hylton DO - Last Filed: 05/24/22 20:21> Orders Ordered: ED Orders 05/24/22 13:02 XR hip w pel if done RT 2V Stat EKG-12 Lead Stat 05/24/22 13:06 CBC Auto Diff [Complete Blood Count AUTO DIFF] Stat CMP [Comprehensive Metabolic Panel] Stat Digoxin Stat Magnesium Stat Procalcitonin Stat TSH [Thyroid Stimulating Hormone] Stat Troponin & CK Cardiac Panel Stat Urine Culture Stat Urine Microscopic Stat 05/24/22 13:28 CT head/brain wo con Stat 05/24/22 13:41 XR chest 1V Stat 05/24/22 14:44 EKG-12 Lead Routine Discontinued Medications Ceftriaxone Sodium 1,000 mg/ (Sodium Chloride) 100 mls @ 200 mls/hr IV NOW ONE Stop: 05/24/22 14:02 Last Infusion: 05/24/22 14:39 Dose: 0 mls/hr Documented By: Admin: 05/24/22 14:10 Dose: 200 mls/hr Documented By: GERALD Lidocaine (Lidocaine Patch 1 Each Adh..Patch) 1 each TOP NOW ONE Stop: 05/24/22 13:03 Last Admin: 05/24/22 14:09 Dose: 1 each Documented By: BS Vital Signs Vital signs: Vital Signs - 8 hr 05/24/22 12:50 05/24/22 13:44 05/24/22 13:44 Temperature 97.3 F L Pulse Rate 79 75 Respiratory Rate 18 Blood Pressure 138/65 144/77 H Pulse Oximetry 100 100 Oxygen Delivery Method Room Air 05/24/22 14:01 05/24/22 14:30 Temperature Pulse Rate 85 74 Respiratory Rate 24 Blood Pressure Pulse Oximetry 98 98 Oxygen Delivery Method MDM - Fever <ELENI Zaragoza - Last Filed: 05/24/22 15:08> Lab Data Result diagrams: 05/24/22 13:06 05/24/22 13:06 Labs: Lab Results 05/24/22 05/24/22 05/24/22 Range/Units 13:06 13:06 13:06 WBC 7.1 (4.5-11.0) X10^3/uL RBC 3.92 L (4.0-5.2) X10^6/uL Hgb 12.2 (12.0-16.0) g/dL Hct 36.9 (36-46) % MCV 94.1 (80-100) fL MCH 31.2 (26-34) PG MCHC 33.1 (30-36) % RDW 14.1 (11.6-14.8) % Plt Count 240 (150-400) X10^3/uL Neut % (Auto) 78.1 H (50-75) % Lymph % (Auto) 14.6 L (25-40) % [place]iscoe % (Auto) 6.7 (3-14) % Eos % (Auto) 0.2 L (2-4) % Baso % (Auto) 0.4 (0-2) % Neut # (Auto) 5600 (2543-2909) /uL Lymph # (Auto) 1000 L (7520-9793) /uL [place]iscoe # (Auto) 500 (0-900) /uL Eos # (Auto) 0 (0-450) /uL Baso # (Auto) 0 (0-100) /uL Sodium 142 (137-145) mmol/L Potassium 3.6 (3.4-5.1) mmol/L Chloride 109 H (98-107) mmol/L Carbon Dioxide 26 (22-32) mmol/L BUN 16 (7-17) mg/dL Creatinine 1.01 (0.52-1.04) mg/dL Estimated GFR 58 L (>60) mL/min BUN/Creatinine Ratio 15.8 (6-22) Glucose 146 H (80-110) mg/dL Calcium 9.1 (8.4-10.2) mg/dL Magnesium 1.9 (1.6-2.3) mg/dL Total Bilirubin 0.4 (0.2-1.3) mg/dL AST 29 (14-36) IU/L ALT 21 (<35) IU/L Alkaline Phosphatase 82 (38-126) U/L Total Creatine Kinase 61 (30-135) U/L CK-MB (CK-2) TNP CK-MB (CK-2) Rel Index TNP Troponin I 0.014 (0.01-0.034) ng/mL Total Protein 6.9 (6.3-8.2) g/dL Albumin 4.1 (3.5-5.0) g/dL Globulin 2.8 (1.7-4.1) g/dL Albumin/Globulin Ratio 1.5 (1.0-2.8) Procalcitonin (<0.5) ng/mL TSH 2.59 (0.47-4.68) uIU/mL Urine RBC (0-5/HPF) Urine WBC (0-5/HPF) Ur Squamous Epith Cells (0-5/HPF) Urine Bacteria (None) Ur Culture Indicated? Digoxin 0.7 L (0.8-2.0) ng/mL 05/24/22 05/24/22 Range/Units 13:06 13:06 WBC (4.5-11.0) X10^3/uL RBC (4.0-5.2) X10^6/uL Hgb (12.0-16.0) g/dL Hct (36-46) % MCV (80-100) fL MCH (26-34) PG MCHC (30-36) % RDW (11.6-14.8) % Plt Count (150-400) X10^3/uL Neut % (Auto) (50-75) % Lymph % (Auto) (25-40) % Briscoe % (Auto) (3-14) % Eos % (Auto) (2-4) % Baso % (Auto) (0-2) % Neut # (Auto) (7339-5675) /uL Lymph # (Auto) (5264-2276) /uL Briscoe # (Auto) (0-900) /uL Eos # (Auto) (0-450) /uL Baso # (Auto) (0-100) /uL Sodium (137-145) mmol/L Potassium (3.4-5.1) mmol/L Chloride (98-107) mmol/L Carbon Dioxide (22-32) mmol/L BUN (7-17) mg/dL Creatinine (0.52-1.04) mg/dL Estimated GFR (>60) mL/min BUN/Creatinine Ratio (6-22) Glucose (80-110) mg/dL Calcium (8.4-10.2) mg/dL Magnesium (1.6-2.3) mg/dL Total Bilirubin (0.2-1.3) mg/dL AST (14-36) IU/L ALT (<35) IU/L Alkaline Phosphatase (38-126) U/L Total Creatine Kinase (30-135) U/L CK-MB (CK-2) CK-MB (CK-2) Rel Index Troponin I (0.01-0.034) ng/mL Total Protein (6.3-8.2) g/dL Albumin (3.5-5.0) g/dL Globulin (1.7-4.1) g/dL Albumin/Globulin Ratio (1.0-2.8) Procalcitonin 0.06 (<0.5) ng/mL TSH (0.47-4.68) uIU/mL Urine RBC 0-1/hpf (0-5/HPF) Urine WBC 30-100/hpf H (0-5/HPF) Ur Squamous Epith Cells 0-1 /hpf D (0-5/HPF) Urine Bacteria Many (>30) H (None) Ur Culture Indicated? Specimen cultured Digoxin (0.8-2.0) ng/mL Urine Dip Bedside Urine Glucose Negative Bedside Urine Bilirubin - Negative Bedside Urine Ketone - Negative Urine Specific Deshler 1.030 Bedside Urine Occult Blood + Bedside Urine pH 6.0 Bedside Urine Protein + 30 Bedside Urine Urobilinogen - Negative Bedside Urine Nitrite + Positive Bedside Urine Leukocytes + 70 Esterase Imaging Data Extremity x-ray #1: Radiologist's Impression: PROCEDURE:? XR HIP W PEL IF DONE RT 2V ? INDICATIONS:? fall last night, hx pelvis fx last year ? TECHNIQUE:? AP pelvis with lateral view(s) of the right hip(s).? ? COMPARISON:? [facility], CT, CT PEL WO CON, 12/03/2021, 23:00.? [facility], CR, XR HIP W PEL IF DONE RT 2V, 11/22/2021, 16:36. ? FINDINGS:? ? Bones:? Patient is status post prior surgical pinning of left hip and right total hip arthroplasty.? Right hip alignment is unchanged from prior study.? No gross acute fracture or dislocation.? No gross hardware loosening or failure.? Previously described right superior and possibly inferior pubic rami fractures near symphysis pubis are again seen.? Pelvic ring appears intact.? No suspicious bony lesions.? ? Soft tissues:? The visualized bowel gas pattern is normal.? No suspicious soft tissue calcifications.? ? ? IMPRESSION:? Old right superior and inferior right pubic ramus fracture.? No acute right hip fracture or dislocation.? No gross hardware complication. ? ? ? Dictated by: Rob Lantigua M.D. on 05/24/2022 at 13:50 ? ? Approved by: Rob Lantigua M.D. on 05/24/2022 at 13:53 ? Chest x-ray: Radiologist's Impression: PROCEDURE:? XR CHEST 1V ? INDICATIONS:? dizziness, anticoagulated ? TECHNIQUE:? One view of the chest was acquired.? ? COMPARISON:? None. ? FINDINGS:? ? Surgical changes and devices:? None.? ? Lungs and pleura:? Lungs are clear.? No pleural effusions or pneumothorax.? ? Mediastinum:? Mediastinal contours appear normal.? Heart size is enlarged.? ? Bones and chest wall:? No suspicious bony lesions.? Overlying soft tissues appear unremarkable.? ? IMPRESSION:? No acute cardiopulmonary pathology. ? ? Dictated by: Rob Lantigua M.D. on 05/24/2022 at 14:10 ? ? Approved by: Rob Lantigua M.D. on 05/24/2022 at 14:13 ? CT scan - head: Radiologist's Impression: PROCEDURE:? CT HEAD/BRAIN WO CON ? INDICATIONS:? fall on anticoagulants ? TECHNIQUE:? Noncontrast 4.5 mm thick angled axial sections acquired from the foramen magnum to the vertex, with coronal and sagittal reformats.? For radiation dose reduction, the following was used:? automated exposure control, adjustment of mA and/or kV according to patient size.? ? COMPARISON:? None. ? FINDINGS:? Image quality:? Excellent.? ? CSF spaces:? Basal cisterns are patent.? No extra-axial fluid collections.? The ventricles are symmetric in size and shape.? ? Brain:? No intracranial bleeds or masses.? There is cerebral volume loss for age, with resultant ventricular and sulcal prominence.? There are periventricular and deep white matter chronic small vessel ischemic changes.? There is intracranial internal carotid artery atherosclerosis.? ? Skull and face:? Calvarium and visualized facial bones appear intact, without suspicious lesions.? ? Sinuses:? Visualized sinuses and mastoids are clear.? ? IMPRESSION:? 1. No CT evidence of acute intracranial bleed, midline shift or mass effect. 2. No gross acute skull fracture. 3.? Age related atrophy and moderate white matter chronic small vessel ischemic changes.? Dictated by: Rob Lantgiua M.D. on 05/24/2022 at 14:09 ? ? Approved by: Rob Lantigua M.D. on 05/24/2022 at 14:10 ? ECG Data Interpretation: [address] Hylton and myself reveals atrial fibrillation 75 bpm with leftward axis with PVCs. Depressed T-waves in lead two, lead three, V1 V2 V4 V5 V6. QRS is 102 milliseconds with occasional PVCs. No STEMI, ST segment changes, arrhythmia, or acute ischemic changes. 1445 repeat EKG shows atrial fibrillation with PVCs, T-wave abnormalities are similar, QRS is 96 milliseconds, ventricular rate is 78. MDM Narrative Medical decision making narrative: This is a 77-year-old female presents to the emergency department complaining of hip and pelvis pain after she slid/fell down onto her coccyx last night. Patient has a history of a right femoral neck fracture last year, she also has a history of atrial fibrillation and is anticoagulated on Xarelto, recent cognitive testing with score of 26, some memory loss at baseline. Patient's daughter states that over the last two days she has been more confused than usual, yesterday she took her nighttime medication in the morning, this led to her being sleepy all day and not sleeping well last night. She did not hit her head according to her daughter, she does not have any obvious signs of injuries, she complains of right hip pain but is ambulatory without deficit. She denies dysuria. Her 1st EKG is abnormal, there are no other EKGs to compare to, it does not show any ST elevation but there are flipped T-waves in multiple leads, borderline wide QRS, atrial fibrillation with a leftward axis. Repeat EKG 1 hour later with similar changes, patient denies chest pain, shortness of breath, diaphoresis or weakness. Her lab work does not show any leukocytosis, anemia, electrolyte abnormalities, her troponin is negative, CK and liver enzymes are all negative, TSH is 2.59. Procalcitonin is still pending as this was had an on later. Her urine microscopy shows 30-100 wbc's, many bacteria, without RBCs. Urine is pending for culture. Her digoxin level is 0.7, normal level is 0.8-2 ng/mL. Patient has been on digoxin for many years. Recent medication change includes discontinuing sertraline and starting fluoxetine one week ago. This is likely where her mental status changes or coming from unless they are coming from her acute cystitis. Patient was given 1 g of ceftriaxone in the emergency department, she is tolerating p.o., has not had any vomiting, denies pain anywhere other than her chronic left shoulder pain which she is seen physical therapy for as an outpatient twice a week, and her acute on chronic right hip pain. Hip x-ray with pelvis is negative for acute fracture or osseous abnormalities. CT head without contrast shows no CT evidence of acute intracranial bleed, midline shift, or mass effect. There is no gross acute skull fracture, age-related atrophy and moderate white matter chronic small vessel ischemic changes. Chest x-ray is negative for acute cardiopulmonary abnormality. Encourage close follow-up with Dr. Smith for urine testing and for cardiac testing since she is on Xarelto, digoxin, history of AFib. Also encouraged updated cognitive evaluation without active infection. Patient is appropriate and amenable to discharge home. Vital signs are stable on repeat examination is unremarkable. Patient has been informed of results. Patient has been given strict return to ER precautions for any new or worsening symptoms. Patient understands to follow up closely with outpatient providers as instructed. Patient understands plan and agrees to discharge home. All questions and concerns answered at this time. <Renee Hylton, DO - Last Filed: 05/24/22 20:21> Lab Data Labs: Lab Results 05/24/22 05/24/22 05/24/22 Range/Units 13:06 13:06 13:06 WBC 7.1 (4.5-11.0) X10^3/uL RBC 3.92 L (4.0-5.2) X10^6/uL Hgb 12.2 (12.0-16.0) g/dL Hct 36.9 (36-46) % MCV 94.1 (80-100) fL MCH 31.2 (26-34) PG MCHC 33.1 (30-36) % RDW 14.1 (11.6-14.8) % Plt Count 240 (150-400) X10^3/uL Neut % (Auto) 78.1 H (50-75) % Lymph % (Auto) 14.6 L (25-40) % Briscoe % (Auto) 6.7 (3-14) % Eos % (Auto) 0.2 L (2-4) % Baso % (Auto) 0.4 (0-2) % Neut # (Auto) 5600 (1265-8682) /uL Lymph # (Auto) 1000 L (8021-4905) /uL Briscoe # (Auto) 500 (0-900) /uL Eos # (Auto) 0 (0-450) /uL Baso # (Auto) 0 (0-100) /uL Sodium 142 (137-145) mmol/L Potassium 3.6 (3.4-5.1) mmol/L Chloride 109 H (98-107) mmol/L Carbon Dioxide 26 (22-32) mmol/L BUN 16 (7-17) mg/dL Creatinine 1.01 (0.52-1.04) mg/dL Estimated GFR 58 L (>60) mL/min BUN/Creatinine Ratio 15.8 (6-22) Glucose 146 H (80-110) mg/dL Calcium 9.1 (8.4-10.2) mg/dL Magnesium 1.9 (1.6-2.3) mg/dL Total Bilirubin 0.4 (0.2-1.3) mg/dL AST 29 (14-36) IU/L ALT 21 (<35) IU/L Alkaline Phosphatase 82 (38-126) U/L Total Creatine Kinase 61 (30-135) U/L CK-MB (CK-2) TNP CK-MB (CK-2) Rel Index TNP Troponin I 0.014 (0.01-0.034) ng/mL Total Protein 6.9 (6.3-8.2) g/dL Albumin 4.1 (3.5-5.0) g/dL Globulin 2.8 (1.7-4.1) g/dL Albumin/Globulin Ratio 1.5 (1.0-2.8) Procalcitonin (<0.5) ng/mL TSH 2.59 (0.47-4.68) uIU/mL Urine RBC (0-5/HPF) Urine WBC (0-5/HPF) Ur Squamous Epith Cells (0-5/HPF) Urine Bacteria (None) Ur Culture Indicated? Digoxin 0.7 L (0.8-2.0) ng/mL 05/24/22 05/24/22 Range/Units 13:06 13:06 WBC (4.5-11.0) X10^3/uL RBC (4.0-5.2) X10^6/uL Hgb (12.0-16.0) g/dL Hct (36-46) % MCV (80-100) fL MCH (26-34) PG MCHC (30-36) % RDW (11.6-14.8) % Plt Count (150-400) X10^3/uL Neut % (Auto) (50-75) % Lymph % (Auto) (25-40) % Briscoe % (Auto) (3-14) % Eos % (Auto) (2-4) % Baso % (Auto) (0-2) % Neut # (Auto) (9988-6666) /uL Lymph # (Auto) (3681-0959) /uL Briscoe # (Auto) (0-900) /uL Eos # (Auto) (0-450) /uL Baso # (Auto) (0-100) /uL Sodium (137-145) mmol/L Potassium (3.4-5.1) mmol/L Chloride (98-107) mmol/L Carbon Dioxide (22-32) mmol/L BUN (7-17) mg/dL Creatinine (0.52-1.04) mg/dL Estimated GFR (>60) mL/min BUN/Creatinine Ratio (6-22) Glucose (80-110) mg/dL Calcium (8.4-10.2) mg/dL Magnesium (1.6-2.3) mg/dL Total Bilirubin (0.2-1.3) mg/dL AST (14-36) IU/L ALT (<35) IU/L Alkaline Phosphatase (38-126) U/L Total Creatine Kinase (30-135) U/L CK-MB (CK-2) CK-MB (CK-2) Rel Index Troponin I (0.01-0.034) ng/mL Total Protein (6.3-8.2) g/dL Albumin (3.5-5.0) g/dL Globulin (1.7-4.1) g/dL Albumin/Globulin Ratio (1.0-2.8) Procalcitonin 0.06 (<0.5) ng/mL TSH (0.47-4.68) uIU/mL Urine RBC 0-1/hpf (0-5/HPF) Urine WBC 30-100/hpf H (0-5/HPF) Ur Squamous Epith Cells 0-1 /hpf D (0-5/HPF) Urine Bacteria Many (>30) H (None) Ur Culture Indicated? Specimen cultured Digoxin (0.8-2.0) ng/mL Urine Dip Bedside Urine Glucose Negative Bedside Urine Bilirubin - Negative Bedside Urine Ketone - Negative Urine Specific Deshler 1.030 Bedside Urine Occult Blood + Bedside Urine pH 6.0 Bedside Urine Protein + 30 Bedside Urine Urobilinogen - Negative Bedside Urine Nitrite + Positive Bedside Urine Leukocytes + 70 Esterase ECG Data Interpretation: [address] Hylton and myself reveals atrial fibrillation 75 bpm with leftward axis with PVCs. Depressed T-waves in lead two, lead three, V1 V2 V4 V5 V6. QRS is 102 milliseconds with occasional PVCs. No STEMI, ST segment changes, arrhythmia, or acute ischemic changes. 1445 repeat EKG shows atrial fibrillation with PVCs, T-wave abnormalities are similar, QRS is 96 milliseconds, ventricular rate is 78. LASHAUN-EKG 1. Atrial fibrillation rate 75 significant T-wave inversions in the [address] depression in V5 and V6 no ST elevations no priors to compare EKG 2. Persistent AFib rate [address] depression and T-wave inversion Discharge Plan Departure Patient Disposition: Home Clinical Impression: Serum digoxin level below therapeutic range Fall Qualifiers: Encounter type: initial encounter Qualified Code(s): W19.XXXA - Unspecified fall, initial encounter Acute cystitis Qualifiers: Hematuria presence: with hematuria Qualified Code(s): N30.01 - Acute cystitis with hematuria Acute hip pain Qualifiers: Laterality: right Qualified Code(s): M25.551 - Pain in right hip Instructions: Enhancing Memory and Mental Function (Alternative Therapy), Acute Cystitis Activity Restrictions/Additional Instructions: *You have been diagnosed with a bladder infection. This is likely contributing to fall and not being yourself over last couple of days. Please remember to drink fluids frequently throughout day and empty your bladder frequently to prevent bacteria from growing. All of your lab work is reassuring that this does not appear to be a cardiac problem, another organ problem, a brain bleed or any brain injury from this fall. Your TSH today is 2.59, this is normal, all of your liver enzymes are within normal ranges, your electrolytes are balanced without any low values. Your kidneys appear healthy as well. Please follow-up with your regular doctor at your next scheduled visit. Your EKG today shows some concerning waveforms but we do not have any priors to compare to. If you develop chest pain, shortness of breath, or any cardiac-related symptoms, please come directly to the emergency department, otherwise please follow-up with Dr. Smith at your next visit. I did not find a reason other than a bladder infection which is contributing to your symptoms today. I hope you feel better soon, please remember to stay hydrated. *What to do: *Please continue to take your regular medications as directed. [x ] New medication prescriptions sent to your pharmacy: [ [facility]] [ ] New medication written as a paper prescription [ ] No new medications given *Please follow up with your primary care provider in 2-3 days, call for an appointment. Let them know you were seen in the Emergency Department and that we asked that you be seen for follow-up. We will electronically transmit a record of today's note if your PCP is in our system *If you do not have a primary care provider please contact [phone] to catie azul with one of the [facility] primary care providers. *Return to Emergency Department if you should have any new, worsening or concerning symptoms, such as [fever greater than 101F, chills, worsening pain, persistent vomiting or other bothersome symptoms] Prescriptions: New cephalexin 500 mg tablet 500 mg PO BID 5 Days Qty: 10 0RF lidocaine [Lidoderm] 5 % adhesive patch,medicated 1 patch topical BID PRN (Reason: pain) Qty: 15 0RF Rx Instructions: leave on most painful area for up to 12 hrs No Action levothyroxine [Synthroid] 175 mcg tablet 250 mcg PO QAM Label Comments: Take 1 tablet by mouth once a day for thyroid replacement. sertraline 100 mg tablet 150 mg PO DAILY digoxin 250 mcg (0.25 mg) tablet 250 mcg PO BEDTIME Label Comments: Take 1 tablet by mouth once a day tolterodine 2 mg tablet 2 mg PO BEDTIME Label Comments: Take 1 tablet by mouth once a day ferrous sulfate 325 mg (65 mg iron) Tablet 325 mg PO DAILY omeprazole 20 mg capsule,delayed release(DR/EC) 20 mg PO DAILY Label Comments: TAKE 1 CAPSULE BY MOUTH TWICE DAILY mirtazapine 45 mg tablet 45 mg PO BEDTIME vitamin B complex [B Complex-Vitamin B12] Tablet 1 tab PO DAILY Xarelto 20 mg tablet 20 mg PO BEDTIME Label Comments: TAKE 1 TABLET BY MOUTH EVERY DAY docusate sodium 100 mg Capsule 100 mg PO BID Qty: 30 0RF oxycodone 5 mg Tablet 10 mg PO Q6HR PRN (Reason: Pain, Moderate (4-6)) Qty: 42 0RF fentanyl 12 mcg/hr Patch 72 Hour 12 mcg topical Q72H Qty: 10 0RF Referrals: Mathieu Smith MD [Primary Care Provider] - Visit Report Forms: Patient Portal/API <Renee Hylton DO - Last Filed: 05/24/22 20:21> Cosign ED Attending Keiature Attestation: His I have reviewed patient's EKGs they are quite concerning however patient is completely asymptomatic she is here confused for confusion and found to have a UTI. I personally have spoken with Dr. Rice on-call for patient's PCP recommended outpatient cardiac workup and evaluation. I was immediately available in the department for consultation. Documentation has been reviewed. I agree with assessment and plan.
[2022-05-24 13:24] LABS: Add Manual Diff / Slide Review NO; Basophils Absolute Auto 0 /uL (0-100); Basophils Percent Auto 0.4 % (0-2); Eosinophils Absolute Auto 0 /uL (0-450); Eosinophils Percent Auto 0.2 % (2-4); Hematocrit 36.9 % (36-46); Hemoglobin 12.2 g/dL (12.0-16.0); Lymphocytes Absolute Auto 1000 /uL (1100-4500); Lymphocytes Percent Auto 14.6 % (25-40); Mean Corpuscular HGB Conc 33.1 % (30-36); Mean Corpuscular Hemoglobin 31.2 PG (26-34); Mean Corpuscular Volume 94.1 fL (80-100); Monocytes Absolute Auto 500 /uL (0-900); Monocytes Percent Auto 6.7 % (3-14); Neutrophils Absolute Auto 5600 /uL (1500-7000); Neutrophils Percent Auto 78.1 % (50-75); Platelet Count 240 X10^3/uL (150-400); Red Blood Cell Count 3.92 X10^6/uL (4.0-5.2); Red Cell Distribution Width 14.1 % (11.6-14.8); White Blood Cell Count 7.1 X10^3/uL (4.5-11.0)
--- NOTE | 2022-05-24 13:28 | DI.CT.S_ITS ---
PROCEDURE: CT HEAD/BRAIN WO CON INDICATIONS: fall on anticoagulants TECHNIQUE: Noncontrast 4.5 mm thick angled axial sections acquired from the foramen magnum to the vertex, with coronal and sagittal reformats. For radiation dose reduction, the following was used: automated exposure control, adjustment of mA and/or kV according to patient size. COMPARISON: None. FINDINGS: Image quality: Excellent. CSF spaces: Basal cisterns are patent. No extra-axial fluid collections. The ventricles are symmetric in size and shape. Brain: No intracranial bleeds or masses. There is cerebral volume loss for age, with resultant ventricular and sulcal prominence. There are periventricular and deep white matter chronic small vessel ischemic changes. There is intracranial internal carotid artery atherosclerosis. Skull and face: Calvarium and visualized facial bones appear intact, without suspicious lesions. Sinuses: Visualized sinuses and mastoids are clear. IMPRESSION: 1. No CT evidence of acute intracranial bleed, midline shift or mass effect. 2. No gross acute skull fracture. 3. Age related atrophy and moderate white matter chronic small vessel ischemic changes. Dictated by: Rob Lantigua M.D. on 05/24/2022 at 14:09 Approved by: Rob Lantigua M.D. on 05/24/2022 at 14:10
[2022-05-24 13:37] LABS: Alanine Aminotransferase 21 IU/L (<35); Albumin 4.1 g/dL (3.5-5.0); Albumin Globulin Ratio 1.5 (1.0-2.8); Alkaline Phosphatase 82 U/L (38-126); Aspartate Aminotransferase 29 IU/L (14-36); BUN Creatinine Ratio 15.8 (6-22); Bilirubin Total 0.4 mg/dL (0.2-1.3); Blood Urea Nitrogen 16 mg/dL (7-17); Calcium 9.1 mg/dL (8.4-10.2); Carbon Dioxide 26 mmol/L (22-32); Chloride 109 mmol/L (98-107); Creatine Kinase 61 U/L (30-135); Estimated Glomerular Filt Rate 58 mL/min (>60); Globulin 2.8 g/dL (1.7-4.1); Glucose 146 mg/dL (80-110); HEMOLYSIS < 15 (0-50); Magnesium 1.9 mg/dL (1.6-2.3); Potassium 3.6 mmol/L (3.4-5.1); Sodium 142 mmol/L (137-145); Total Protein 6.9 g/dL (6.3-8.2)
--- NOTE | 2022-05-24 13:41 | DI.RAD.S_ITS ---
PROCEDURE: XR CHEST 1V INDICATIONS: dizziness, anticoagulated TECHNIQUE: One view of the chest was acquired. COMPARISON: None. FINDINGS: Surgical changes and devices: None. Lungs and pleura: Lungs are clear. No pleural effusions or pneumothorax. Mediastinum: Mediastinal contours appear normal. Heart size is enlarged. Bones and chest wall: No suspicious bony lesions. Overlying soft tissues appear unremarkable. IMPRESSION: No acute cardiopulmonary pathology. Dictated by: Rob Lantigua M.D. on 05/24/2022 at 14:10 Approved by: Rob Lantigua M.D. on 05/24/2022 at 14:13
[2022-05-24 13:44] VITALS: BP 144/77; PULSE 75; O2SAT 100
[2022-05-24 13:44] LABS: Digoxin 0.7 ng/mL (0.8-2.0)
[2022-05-24 13:48] LABS: Troponin I 0.014 ng/mL (0.01-0.034)
[2022-05-24 14:01] VITALS: PULSE 85; O2SAT 98
[2022-05-24] MEDS: LIDOCAINE PATCH 1 EACH ADH..PATCH TOP (14:09)
[2022-05-24 14:10] LABS: RBC Urine 0-1/HPF (0-5/HPF)
[2022-05-24] MEDS: cefTRIAXone 1,000 MG in SODIUM CHLORIDE 0.9% 100 ML 200 MG IV (14:10)
[2022-05-24 14:11] LABS: Bacteria Urine Many (>30); Culture Indicated Urine Specimen Cultured; Squamous Epithelial Cell Urine 0-1 /HPF (0-5/HPF); Thyroid Stimulating Hormone 2.59 uIU/mL (0.47-4.68); WBC Urine 30-100/HPF (0-5/HPF)
[2022-05-24 14:30] VITALS: PULSE 74; RESP 24; O2SAT 98
[2022-05-24 15:10] LABS: Procalcitonin 0.06 ng/mL (<0.5)
== END 2022-05-24 15:03 | disposition home or self-care (01) ==
PROVIDERS: Emergency Provider Nurse Practitioner Critical Care Medicine; PCP Family Medicine
DX: N30.01 Acute cystitis with hematuria (principal); R10.2 Pelvic and perineal pain; M25.551 Pain in right hip; W19.XXXA Unspecified fall, initial encounter; R78.89 Finding of other specified substances, not normally found in blood; Z79.01 Long term (current) use of anticoagulants; R41.0 Disorientation, unspecified
CPT/HCPCS: 36415; 70450; 71045; 73502; 80053; 80162; 81003; 81015; 82550; 83735; 84145; 84443; 84484; 85025; 87077; 87086; 87186; 93005; 93010; 96365; 99284; J0696

== ENCOUNTER → 2022-07-17 13:42 | Outpatient (CLI) | payer MEDICARE, OTHER, SELFPAY ==
[2021-12-04 00:41] VITALS: BMI 26.2
--- NOTE | 2022-07-17 | DI.ECHO.S_ITS ---
[facility] +---------+ : : [address] : : : : [id number] : : : : Phone: [phone]+ Echocardiogram Report + + :Name: LEXIS LYMAN Study Date: 07/17/2022 Height: 70 in : :[facility] ReadingLocation: Weight: 157 lb : : Gender: Female BSA: 1.9 m2 : :: 1945 Age: 77 yrs BP: 132/82 mmHg: :Reason For Study: Atrial fibrillation : :Ordering Physician: OSCAR, : :REY Performed By: Koffi Nicole : :Referring: REY QUEZADA : + + Interpretation Summary 1) Moderately to severely enlarged left ventricle with severely reduced systolic function (EF 20-25%). 2) Normal right ventricular size with mildly reduced function. 3) Severe left atrial enlargement. 4) There is moderate mitral regurgitation. 5) No prior Echo available for comparison. Procedure: A two-dimensional transthoracic echocardiogram with color flow and Doppler was performed. The study quality was technically adequate. There is no prior echocardiogram noted for this patient. Left Ventricle: The left ventricle is moderate-severely dilated. There is mild concentric left ventricular hypertrophy. Left ventricular systolic function is severely reduced. The ejection fraction is estimated to be 20-25%. There is severe global hypokinesis of the left ventricle. Diastolic function could not be accurately assessed due to atrial fibrillation. Right Ventricle: The right ventricle is normal size. Right ventricular systolic function is mildly reduced. Atria: The left atrium is severely dilated. The right atrium is normal in size. The interatrial septum grossly appears intact with no obvious evidence for an atrial septal defect. Mitral Valve: The mitral valve leaflets appear moderately thickened, but open well. There is moderate mitral regurgitation. Aortic Valve: The aortic valve is normal in structure and function. There is no aortic valve stenosis. There is mild aortic regurgitation. Tricuspid Valve: The tricuspid valve is normal in structure and function. There is mild tricuspid regurgitation. The right ventricular systolic pressure is estimated to be at least 37 mmHg based on an estimated right atrial pressure of 8 mm Hg. Pulmonic Valve: The pulmonic valve is normal in structure and function. There is a trace or physiologic amount of pulmonic regurgitation. Great Vessels: The aortic root is normal size. The dimensions of the ascending aorta are normal. The IVC is of normal diameter and collapses less than 50% with a sniff. This suggests a right atrial pressure of 8 mm Hg. Pericardium/ Pleura There is no pericardial effusion. There is no pleural effusion. MMode/2D Measurements & Calculations LVIDd: 6.0 cm LVOT diam: 2.3 cm LVIDs: 5.1 cm Ao root diam: 3.3 cm FS: 15.4 % asc Aorta Diam: 3.6 cm IVSd: 1.2 cm LVPWd: 1.2 cm LV burrows. diameter/BSA (cm/m^2): 3.2 LV sys. diameter/BSA (cm/m^2): 2.7 LA dimension: 5.0 cm RA long axis: 5.5 cm LA A2 area: 30.4 cm2 LA A4 area: 34.1 cm2 LA length (vol): 6.3 cm LA vol: 140.1 ml LA vol index: 74.4 ml/m2 LVLs ap4: 8.4 cm LVLd ap2: 7.6 cm LVLs ap2: 7.5 cm TAPSE_phl: 1.5 cm Doppler Measurements & Calculations Ao V2 max: 114.0 cm/sec LVOT Max Kb: 55.5 cm/sec Ao V2 mean: 90.1 cm/sec LV V1 max P.2 mmHg Ao max P.0 mmHg LV V1 VTI: 10.5 cm Ao mean P.0 mmHg CALISTA(I,D): 2.5 cm2 Ao V2 VTI: 17.8 cm CALISTA(V,D): 2.0 cm2 sev ratio: 0.59 CALISTA indexed to BSA (cm^2/m^2): 1.3 AI P1/2t: 511.8 msec AI dec slope: 194.0 cm/sec2 TR max kb: 268.0 cm/sec MR VTI: 149.0 cm TR max P.7 mmHg SV(LVOT): 43.6 ml AV P1/2t-pr_phl: 511.0 msec AV VR_phl: 0.49 CALISTA(VTI)/BSA_phl: 1.3 Reading Physician:04:52 PM
== END ==
PROVIDERS: PCP Family Medicine; Referring Provider Internal Medicine Cardiovascular Disease; Visit Provider Internal Medicine Cardiovascular Disease
DX: I48.21 Permanent atrial fibrillation (principal); I51.7 Cardiomegaly; I34.0 Nonrheumatic mitral (valve) insufficiency
CPT/HCPCS: 93306

== ENCOUNTER 2022-10-14 23:42 | Observation (INO) | payer MEDICARE, OTHER, SELFPAY ==
[2021-12-04 00:41] VITALS: BMI 26.2
[2022-10-14 23:51] VITALS: BP 103/66; PULSE 124; RESP 18; TEMP 37.1; O2SAT 98; BMI 23.1
--- NOTE | 2022-10-14 23:57 | ED.CHESTPAIN ---
HPI - Chest Pain General Chief Complaint: Chest Pain Stated Complaint: chest pain Time Seen by Provider: 10/14/22 23:45 History of Present Illness HPI narrative: 77-year-old female nonsmoker with history of chronic AFib on Xarelto, previously rate controlled with digoxin but recently switched to metoprolol presents with a chief complaint of chest pain which is largely sharp and seems to be worse with deep breath and palpation. Furthermore, she feels short of breath and a bit weak. She is not dizzy or lightheaded. She denies any nausea, vomiting or diarrhea. She denies fever or chills and has had no dysuria, frequency or urgency. She states she is not missed any doses of her medications Related Data Home Medications Medication Instructions Recorded Confirmed digoxin 250 mcg (0.25 mg) tablet 250 mcg PO BEDTIME 12/04/21 12/04/21 ferrous sulfate 325 mg (65 mg 325 mg PO DAILY 12/04/21 12/04/21 iron) tablet levothyroxine 175 mcg tablet 250 mcg PO QAM 12/04/21 12/04/21 (Synthroid) mirtazapine 45 mg tablet 45 mg PO BEDTIME 12/04/21 12/04/21 omeprazole 20 mg capsule,delayed 20 mg PO DAILY 12/04/21 12/04/21 release rivaroxaban 20 mg tablet (Xarelto) 20 mg PO BEDTIME 12/04/21 12/04/21 sertraline 100 mg tablet 150 mg PO DAILY 12/04/21 12/04/21 tolterodine 2 mg tablet 2 mg PO BEDTIME 12/04/21 12/04/21 vitamin B complex (B 1 tab PO DAILY 12/04/21 12/04/21 Complex-Vitamin B12 tablet) Previous Rx's Medication Instructions Recorded docusate sodium 100 mg capsule 100 mg PO BID #30 caps 12/06/21 fentanyl 12 mcg/hr transdermal 12 mcg topical Q72H #10 ea 12/06/21 patch oxycodone 5 mg tablet 10 mg PO Q6HR PRN Pain, Moderate 12/06/21 (4-6) #42 tabs lidocaine 5 % topical patch 1 patch topical BID PRN pain #15 ea 05/24/22 (Lidoderm) Allergies Allergy/AdvReac Type Severity Reaction Status Date / Time gabapentin Allergy Verified 01/05/22 11:54 Review of Systems Review of Systems Narrative: GENERAL: Denies chills, fatigue, malaise, fever, sweats. HEENT: Denies sinus pain, ear pain, sore throat, difficulty swallowing, dizziness. RESPIRATORY: Denies dyspnea, cough, wheezing, hemoptysis, sputum. CARDIOVASCULAR: see HPI GASTROINTESTINAL: Denies nausea, vomiting, abdominal pain, diarrhea, constipation, melena. : Denies dysuria, frequency, incontinence, hematuria, urinary retention. MUSCULOSKELETAL: denies weakness, joint pain, or bony pain SKIN: Denies rash, skin lesions, or other NEUROLOGIC: Denies weakness, headache, numbness, change in speech, confusion, seizures, incoordination. PSYCHIATRIC: No concerning psychosocial issues. 12 point review of systems is negative except for those stated above Patient History Medical History Fracture of femoral neck, left Neuropathy Surgical History History of total right hip arthroplasty Social History household members: children Smoking Status: Never smoker alcohol intake: current Smoking Status: Never smoker alcohol intake frequency: a few times a month Substance Use Type: marijuana Exam Narrative Exam Narrative: GENERAL: [77] year old patient appears stated age. Elderly, chronically ill HEAD: Atraumatic. Normocephalic. EYES: Pupils equal round and reactive. Extraocular motions intact. No scleral icterus. No injection or drainage. ENT: Nose without bleeding, purulent drainage. Throat without erythema, tonsillar hypertrophy or exudate. Airway patent. NECK: Trachea midline. Non tender CARDIOVASCULAR: Anterior chest pain reproducible to palpation, no crepitance, erythema or edema noted. Heart rate irregular and tachycardic no murmurs clicks rubs or gallops RESPIRATORY: Clear to auscultation. Breath sounds equal bilaterally. No wheezes, rales, or rhonchi. GASTROINTESTINAL: Abdomen soft, non-tender, nondistended. EXTREMITIES: No edema or joint tenderness. BACK: Nontender without deformity or crepitance. No flank tenderness. NEURO: AOx3. Cranial nerves 2-12 grossly intact SKIN: No rash or erythema of visible areas Initial Vital Signs Initial Vital Signs: Vital Signs Temperature 98.8 F 12/10/22 23:51 Pulse Rate 124 H 10/14/22 23:51 Respiratory Rate 18 10/14/22 23:51 Blood Pressure 103/66 10/14/22 23:51 Pulse Oximetry 98 10/14/22 23:51 Oxygen Delivery Method 10/14/22 23:51 Course Orders Ordered: ED Orders 10/15/22 00:04 XR chest 1V Stat EKG-12 Lead Stat 10/15/22 00:15 Complete Blood Count AUTO DIFF Stat Comprehensive Metabolic Panel Stat Digoxin Stat Lipase Stat Troponin & CK Cardiac Panel Stat 10/15/22 03:23 COVID19 -Nasal RAPID/Pre-Proc Stat Sodium Chloride (Normal Saline 0.9%) 1,000 mls @ 150 mls/hr IV CONT JUAQUIN Last Admin: 10/15/22 00:09 Dose: 150 mls/hr Documented By: MARIA T Discontinued Medications Aspirin (Aspirin 81 Mg Chew Tab) 324 mg PO NOW ONE Stop: 10/15/22 00:05 Last Admin: 10/15/22 00:09 Dose: 324 mg Documented By: MARIA T Digoxin (Digoxin 500 Mcg/2 Ml Ampul) 250 mcg IV NOW ONE Stop: 10/15/22 02:23 Last Admin: 10/15/22 02:41 Dose: 250 mcg Lidocaine (Lidocaine Patch 1 Each Adh..Patch) 1 each TOP NOW ONE Stop: 10/15/22 03:34 Morphine Sulfate (Morphine 2 Mg/Ml Inj) 2 mg IV NOW ONE Stop: 10/15/22 00:05 Last Admin: 10/15/22 00:09 Dose: 2 mg Documented By: MARIA T Ondansetron HCl (Ondansetron 4 Mg/2 Ml Inj) 4 mg IV NOW ONE Stop: 10/15/22 00:05 Last Admin: 10/15/22 00:29 Dose: 4 mg Documented By: MARIA T Consultations Consultation #1: Discussed with her emission specialist, he reviews records and is able to confirm the patient is chronic atrial fibrillation. He states that she had been previously taken off of digoxin and placed on metoprolol but recommends starting digoxin back given her relative hypotension. He recommends giving 0.25 through the IV and 0.25 oral right now and repeating 0.25 IV in about 4 hours and then starting her on 0.125 oral daily. She will need to be hospitalized, recommends admission to medical service Consultation #2: Dr. Smith happy to accept Vital Signs Vital signs: Vital Signs - 8 hr 10/14/22 23:51 10/15/22 01:31 10/15/22 02:41 Temperature 98.8 F Pulse Rate 124 H 122 H 104 H Respiratory Rate 18 20 Blood Pressure 103/66 98/73 104/60 Pulse Oximetry 98 94 Oxygen Delivery Method Room Air Room Air MDM - Chest Pain Lab Data Result diagrams: 10/15/22 00:15 10/15/22 00:15 Labs: Lab Results 10/15/22 10/15/22 10/15/22 Range/Units 00:15 00:15 00:15 WBC 9.8 (4.5-11.0) X10^3/uL RBC 3.61 L (4.0-5.2) X10^6/uL Hgb 11.8 L (12.0-16.0) g/dL Hct 35.1 L (36-46) % MCV 97.1 (80-100) fL MCH 32.7 (26-34) PG MCHC 33.7 (30-36) % RDW 14.3 (11.6-14.8) % Plt Count 252 (150-400) X10^3/uL Neut % (Auto) 78.8 H (50-75) % Lymph % (Auto) 12.1 L (25-40) % [place] % (Auto) 8.5 (3-14) % Eos % (Auto) 0.3 L (2-4) % Baso % (Auto) 0.3 (0-2) % Neut # (Auto) 7700 H (3862-1920) /uL Lymph # (Auto) 1200 (2627-1947) /uL [place] # (Auto) 800 (0-900) /uL Eos # (Auto) 0 (0-450) /uL Baso # (Auto) 0 (0-100) /uL Sodium 135 L (137-145) mmol/L Potassium 3.9 (3.4-5.1) mmol/L Chloride 108 H (98-107) mmol/L Carbon Dioxide 15 L (22-32) mmol/L BUN 28 H (7-17) mg/dL Creatinine 1.19 H (0.52-1.04) mg/dL Estimated GFR 48 L (>60) mL/min BUN/Creatinine Ratio 23.5 H (6-22) Glucose 122 H (80-110) mg/dL Calcium 8.6 (8.4-10.2) mg/dL Total Bilirubin 0.4 (0.2-1.3) mg/dL AST 41 H (14-36) IU/L ALT 46 H (<35) IU/L Alkaline Phosphatase 104 (38-126) U/L Total Creatine Kinase 60 (30-135) U/L CK-MB (CK-2) TNP CK-MB (CK-2) Rel Index TNP Troponin I 0.015 (0.01-0.034) ng/mL Total Protein 6.4 (6.3-8.2) g/dL Albumin 3.8 (3.5-5.0) g/dL Globulin 2.6 (1.7-4.1) g/dL Albumin/Globulin Ratio 1.5 (1.0-2.8) Lipase 107 (23-300) U/L Digoxin < 0.4 L (0.8-2.0) ng/mL Discharge Plan Departure Patient Disposition: Admitted as Observation Clinical Impression: Atrial fibrillation with rapid ventricular response, Atypical chest pain Admit Date/Time: 10/15/22 03:08 Admit Provider: Mathieu Smith
[2022-10-15] VITALS (13 sets, daily range): BP systolic 95–110; BP diastolic 60–75; PULSE 85–122; RESP 18–32; TEMP 35.9–36.6; O2SAT 93–97; BMI 23.1
--- NOTE | 2022-10-15 00:04 | DI.RAD.S_ITS ---
PROCEDURE: XR CHEST 1V INDICATIONS: chest pain TECHNIQUE: One view of the chest was acquired. COMPARISON: [facility], CR, XR CHEST 1V, 05/24/2022, 14:44. FINDINGS: Surgical changes and devices: None. Lungs and pleura: Lungs are slightly edematous. No pleural effusions or pneumothorax. Mediastinum: Mediastinal contours appear normal. Heart size is globally enlarged. Bones and chest wall: No suspicious bony lesions. Overlying soft tissues appear unremarkable. IMPRESSION: Chronic CHF pattern, possible mild acute exacerbation. Dictated by: Anil Epperson M.D. on 10/15/2022 at 0:43 Approved by: Anil Epperson M.D. on 10/15/2022 at 0:43
[2022-10-15] MEDS: MORPHINE 2 MG/ML INJ IV (00:09)
[2022-10-15] MEDS: ASPIRIN 81 MG CHEW TAB 324 MG PO (00:09)
[2022-10-15] MEDS: SODIUM CHLORIDE 0.9% 1,000 ML 150 ML IV (00:09)
[2022-10-15 00:29] LABS: Add Manual Diff / Slide Review NO; Basophils Absolute Auto 0 /uL (0-100); Basophils Percent Auto 0.3 % (0-2); Eosinophils Absolute Auto 0 /uL (0-450); Eosinophils Percent Auto 0.3 % (2-4); Hematocrit 35.1 % (36-46); Hemoglobin 11.8 g/dL (12.0-16.0); Lymphocytes Absolute Auto 1200 /uL (1100-4500); Lymphocytes Percent Auto 12.1 % (25-40); Mean Corpuscular HGB Conc 33.7 % (30-36); Mean Corpuscular Hemoglobin 32.7 PG (26-34); Mean Corpuscular Volume 97.1 fL (80-100); Monocytes Absolute Auto 800 /uL (0-900); Monocytes Percent Auto 8.5 % (3-14); Neutrophils Absolute Auto 7700 /uL (1500-7000); Neutrophils Percent Auto 78.8 % (50-75); Platelet Count 252 X10^3/uL (150-400); Red Blood Cell Count 3.61 X10^6/uL (4.0-5.2); Red Cell Distribution Width 14.3 % (11.6-14.8); White Blood Cell Count 9.8 X10^3/uL (4.5-11.0)
[2022-10-15] MEDS: ONDANSETRON 4 MG/2 ML INJ IV (00:29)
[2022-10-15 00:34] LABS: Alanine Aminotransferase 46 IU/L (<35); Albumin 3.8 g/dL (3.5-5.0); Albumin Globulin Ratio 1.5 (1.0-2.8); Alkaline Phosphatase 104 U/L (38-126); Aspartate Aminotransferase 41 IU/L (14-36); BUN Creatinine Ratio 23.5 (6-22); Bilirubin Total 0.4 mg/dL (0.2-1.3); Blood Urea Nitrogen 28 mg/dL (7-17); Calcium 8.6 mg/dL (8.4-10.2); Carbon Dioxide 15 mmol/L (22-32); Chloride 108 mmol/L (98-107); Creatine Kinase 60 U/L (30-135); Estimated Glomerular Filt Rate 48 mL/min (>60); Globulin 2.6 g/dL (1.7-4.1); Glucose 122 mg/dL (80-110); HEMOLYSIS < 15 (0-50); Lipase 107 U/L (23-300); Potassium 3.9 mmol/L (3.4-5.1); Sodium 135 mmol/L (137-145); Total Protein 6.4 g/dL (6.3-8.2)
--- NOTE | 2022-10-15 00:37 | PC.NURSE ---
Pt [id number] reports hx of stroke years ago with left sided deficits to her left eye and left arm. Pt uses walker to ambulate.
[2022-10-15 00:46] LABS: Troponin I 0.015 ng/mL (0.01-0.034)
[2022-10-15 01:42] LABS: Digoxin < 0.4 ng/mL (0.8-2.0)
[2022-10-15] MEDS: DIGOXIN 500 MCG/2 ML AMPUL 250 MCG IV (02:41)
[2022-10-15 03:56] LABS: COVID19 -Nasal RAPID Negative (Negative)
--- NOTE | 2022-10-15 04:17 | PC.NURSE ---
sweatshirt, wallet phone, & shoes transported with pt to inpt. room.
[2022-10-15] MEDS: LIDOCAINE PATCH 1 EACH ADH..PATCH TOP (04:44)
--- NOTE | 2022-10-15 05:00 | PC.NURSE ---
Pt arrived from ED around 041. Pt is AxOx4, needs 1 person assistance due to L side weakness from stroke 10 years ago. VSS, pt c/o pain on R side chest 01/12 and Lidocaine patch applied. Pt is on Tele and it shows sinus tach. Otherwise, pt is doing well. No skin issues.
--- NOTE | 2022-10-15 11:44 | CM.DANOTE ---
Addendum entered by AYAD Leyva 10/15/22 13:27: ADD: Per MD, pt remains stable and test results normal and after discussion with family feels pt is medically stable to d/c home today via family POV and no identified barriers to discharge. Plan: Patient to d/c home today via family POV and close outpt follow up and no further SW needs at this time. BF Original Note: Patient is a 77 yo female who was admitted on 10/15/22 today for Chest Pain. Pt has [employer] and [employer] for insurance and her PCP is Dr. Mathieu Smith. EMR was reviewed. Per , pt with a hx of AFIB and admitted for Chest Pain r/o. SW met bedside with pt and explained role and pt confirms she has lived with son and LUCHO/RUBA Marks since March 2021 and has been very independent with ADL's and ambulated with walker independently and was participating in weekly outpt PT appointments before her last admission in Nov 2021 after a GLF and was discharged [facility] under COVID waiver. Pt has been home since SNF and states she has been doing well until this admission for Chest Pain. Pt states she is not currently open with HH or any other supportive services. Preference is home with family assist when stable. Pt is fully vaccinated but received her first two doses [place] another state but has her Booster here in [place]. SW looked up pt in [facility] and only saw confirmation of booster but LUCHO has pt's COVID vax card at home if needed. Plan: SW to follow to confirm safe plan of home with family assist and r/o HH needs and any further identified discharge planning needs. AYAD Leyva Discharge Planning/Care Management CM Discharge Assessment Start: 10/15/22 11:41 Freq: Status: Active Protocol: Document 10/15/22 11:41 BF (Rec: 10/15/22 11:44 BF [id number]) Discharge Planning Assessment Assigned Customer Support Associate AYAD Bui/Assigned Designee Name LUCHO Marks Contact Information [phone] Advance Directives? Yes Advance Directives on File No History Provided By Patient,Family Member,Medical Record Has Patient been admitted in last 30 No days? Comment Last admission in Nov 2021 and went to [facility] after GLF Prior Living Arrangements House Household Members children Type of transporation used prior to Relies on Others admit Independent with ADL's Yes: mostly Is patient alert and oriented? Yes Needs Assistance With Managing Medications,Home Chores / Shopping Caregiver for Another No DME Already Rented / Owned FWW / Walker Patient/Family Preference Home with Home Health Comment r/o HH Barriers to Discharge No Discharge Plan Home Transportation Arrangement if safe for home then family to transport Additional Comment r/o possible HH If patient plan is SNF: Has PASSR been No completed? Whiteboard Updated in Patient Room with Yes name and ext. # of Customer Support Associate Review Status In Process Please Provide Date Initial DC 10/15/22 Assessment Was Performed Next Review Type Continued Stay Review
--- NOTE | 2022-10-15 11:51 | P.DS_ITS ---
History of Present Illness History of Present Illness Date Patient Seen: 10/15/22 Time Patient Seen: 11:51 Date of Onset of Symptoms: 10/12/22 Chief complaint: chest pain Narrative: Patient is a 77-year-old female well known to me who presents with primarily right-sided chest pain. Patient apparently over the last 4 5 days has had increasing chest pain worse with movement. Worse with pressure. Sharp. No history of fall. No trauma. Worse with deep breath. Has not had a cough. No fevers no chills no cough no runny nose. Patient has otherwise had no other significant change. She is not been dizzy or lightheaded. Really has not noticed much else. Other than that she has actually felt pretty good. Apparently recently she was seen by her sample grader and was stopped on her digoxin and metoprolol will start. She has not had any orthopnea PND dizziness lightheadedness. Does not do a lot but has not had much change. Somewhat poor historian. Daughter feels as if things have been stable. Has not noticed any change. Review of systems otherwise negative. Past medical history is significant for: Hypothyroidism, atrial fibrillation, depression, urinary incontinence, history of fall and pelvic fracture Past surgical history. Gastric bypass surgery, right hip replacement, left femoral neck screw replacement. Social history. Lives with [id number] and son. , retired, no alcohol no tobacco Discharge Providers Provider Date of admission: 10/15/22 03:08 Discharge Date: 10/15/22 Primary care physician: Mathieu Smith MD Discharge provider: Mathieu Smith MD Summary Hospital Course Discharge Diagnosis: Atrial fibrillation with RVR Right-sided chest pain, chest wall Hypothyroidism Depression Hospital Course: Atrial fibrillation with RVR. Patient was admitted for observation and got 2 doses of IV digoxin. Also was given 1 dose of p.o. dose. Patient's heart rate overall was in the 90s. And patient was having no symptoms whatsoever. Was felt that she can be continued on lower dose digoxin. Manager Sales was contacted. Will be followed. Chest pain right-sided. Negative enzymes. Negative EKG. [place] to be secondary to chest wall tenderness she is markedly tenderness on exam. Recreates exactly her pain. Worse with movement. Will be treated with heat lidocaine patch and hydrocodone. Will be followed as an outpatient. Hypothyroidism. Will continue usual meds. Depression. Stable. Will follow. No change in medication. Exam Vital Signs (past 8 hours): - 10/15/22 04:15 10/15/22 04:00 10/15/22 04:00 Temperature 98 F Pulse Rate 94 H 98 H Respiratory Rate 18 27 H Blood Pressure 102/64 103/67 Pulse Oximetry 97 94 Oxygen Delivery Method Room Air 10/15/22 04:37 10/15/22 09:30 10/15/22 11:23 Temperature 96.7 F L 97.7 F Pulse Rate 85 93 H Respiratory Rate 20 18 20 Blood Pressure 110/69 95/61 Pulse Oximetry 95 Oxygen Delivery Method Oxygen Delivery Method Room Air Narrative Exam Narrative: Alert fatigued-appearing female in no acute distress. HEENT exam unremarkable. Mucous membranes moist. Neck supple without adenopathy. Lungs are clear. Heart is irregular but rate in the 90s. No murmur click rub or gallop. Abdomen is soft positive bowel sounds nontender. Chest wall shows pain in the right costochondral region. There is no step-off crepitus no bruising. No masses. Extremities without cyanosis clubbing edema. Neurologic exam is unremarkable. Except for weakness in her right foot Objective Labs Result Diagrams: 10/15/22 00:15 10/15/22 00:15 Labs: Laboratory Results - last 24 hr 10/15/22 10/15/22 10/15/22 00:15 00:15 00:15 WBC 9.8 RBC 3.61 L Hgb 11.8 L Hct 35.1 L MCV 97.1 MCH 32.7 MCHC 33.7 RDW 14.3 Plt Count 252 Neut % (Auto) 78.8 H Lymph % (Auto) 12.1 L [place] % (Auto) 8.5 Eos % (Auto) 0.3 L Baso % (Auto) 0.3 Neut # (Auto) 7700 H Lymph # (Auto) 1200 [place] # (Auto) 800 Eos # (Auto) 0 Baso # (Auto) 0 Sodium 135 L Potassium 3.9 Chloride 108 H Carbon Dioxide 15 L BUN 28 H Creatinine 1.19 H Estimated GFR 48 L BUN/Creatinine Ratio 23.5 H Glucose 122 H Calcium 8.6 Total Bilirubin 0.4 AST 41 H ALT 46 H Alkaline Phosphatase 104 Total Creatine Kinase 60 CK-MB (CK-2) TNP CK-MB (CK-2) Rel Index TNP Troponin I 0.015 Total Protein 6.4 Albumin 3.8 Globulin 2.6 Albumin/Globulin Ratio 1.5 Lipase 107 Digoxin < 0.4 L SARS-CoV-2 (PCR) 10/15/22 03:20 WBC RBC Hgb Hct MCV MCH MCHC RDW Plt Count Neut % (Auto) Lymph % (Auto) [place] % (Auto) Eos % (Auto) Baso % (Auto) Neut # (Auto) Lymph # (Auto) [place] # (Auto) Eos # (Auto) Baso # (Auto) Sodium Potassium Chloride Carbon Dioxide BUN Creatinine Estimated GFR BUN/Creatinine Ratio Glucose Calcium Total Bilirubin AST ALT Alkaline Phosphatase Total Creatine Kinase CK-MB (CK-2) CK-MB (CK-2) Rel Index Troponin I Total Protein Albumin Globulin Albumin/Globulin Ratio Lipase Digoxin SARS-CoV-2 (PCR) Negative [facility] Medical History Fracture of femoral neck, left Neuropathy Surgical History History of total right hip arthroplasty Social History household members: children Smoking Status: Never smoker alcohol intake: current Discharge Assessment & Plan Assessment and Plan Assessment: AFib with RVR. Noncardiac chest pain. Improved. Plan of Treatment: Discharge home Discharge Plan Discharge Plan Patient Disposition: Home Provider Discharge Comment: when ride available. Discharge orders & Medications Prescriptions: New hydrocodone-acetaminophen 5-325 mg Tablet 1 tab PO Q4HR PRN (Reason: Pain, Moderate (4-6)) Qty: 30 0RF Continued levothyroxine [Synthroid] 175 mcg tablet 250 mcg PO QAM Label Comments: Take 1 tablet by mouth once a day for thyroid replacement. sertraline 100 mg tablet 150 mg PO DAILY tolterodine 2 mg tablet 2 mg PO BEDTIME Label Comments: Take 1 tablet by mouth once a day ferrous sulfate 325 mg (65 mg iron) Tablet 325 mg PO DAILY omeprazole 20 mg capsule,delayed release(DR/EC) 20 mg PO DAILY Label Comments: TAKE 1 CAPSULE BY MOUTH TWICE DAILY mirtazapine 45 mg tablet 45 mg PO BEDTIME vitamin B complex [B Complex-Vitamin B12] Tablet 1 tab PO DAILY Xarelto 20 mg tablet 20 mg PO BEDTIME Label Comments: TAKE 1 TABLET BY MOUTH EVERY DAY docusate sodium 100 mg Capsule 100 mg PO BID Qty: 30 0RF lidocaine [Lidoderm] 5 % adhesive patch,medicated 1 patch topical BID PRN (Reason: pain) Qty: 15 0RF Rx Instructions: leave on most painful area for up to 12 hrs Discontinued digoxin 250 mcg (0.25 mg) tablet 250 mcg PO BEDTIME Label Comments: Take 1 tablet by mouth once a day oxycodone 5 mg Tablet 10 mg PO Q6HR PRN (Reason: Pain, Moderate (4-6)) Qty: 42 0RF fentanyl 12 mcg/hr Patch 72 Hour 12 mcg topical Q72H Qty: 10 0RF Follow up/Referrals: Mathieu Smith MD [Primary Care Provider] - 10/25/22 (Call for appointment. Does not have to be in a special day next week. Any day next week will be fine. Can call which fits her and my schedule. Patient [id number] will call tomorrow for appointment) Discharge Health Status Multidrug resistant organism: No MDRO Diet/Activity/Treatments Diet: Diet as Tolerated Activity: As tolerated Cold/Heat Therapy: Heat to right side of chest Skin/Wound/Dressing Care Report to your healthcare provider any signs of infection, such as:: chills, fever, night sweats and increased pain Discharge Data Primary Care Provider: Mathieu Smith Attending Provider: Mathieu Smith
[2022-10-15] MEDS: HYDROCODONE/ACET 5/325 TABLET 1 TAB PO (12:01)
[2022-10-15] MEDS: DIGOXIN 0.125 MG TABLET PO (12:01)
--- NOTE | 2022-11-24 13:21 | P.HP_ITS ---
History of Present Illness History of Present Illness Date Patient Seen: 10/15/22 Chief complaint: chest pain Narrative: Patient is a 77-year-old female well known to me who presents with primarily right-sided chest pain. Patient apparently over the last 4 5 days has had increasing chest pain worse with movement. Worse with pressure. Sharp. No history of fall. No trauma. Worse with deep breath. Has not had a cough. No fevers no chills no cough no runny nose. Patient has otherwise had no other significant change. She is not been dizzy or lightheaded. Really has not noticed much else. Other than that she has actually felt pretty good. Apparently recently she was seen by her health safety specialist and was stopped on her digoxin and metoprolol will start. She has not had any orthopnea PND dizziness lightheadedness. Does not do a lot but has not had much change. Somewhat poor historian. Daughter feels as if things have been stable. Has not noticed any change. Review of systems otherwise negative. Past medical history is significant for: Hypothyroidism, atrial fibrillation, depression, urinary incontinence, history of fall and pelvic fracture Past surgical history. Gastric bypass surgery, right hip replacement, left femoral neck screw replacement. Social history. Lives with [id number] and son. , retired, no alcohol no tobacco Patient History Medical History Fracture of femoral neck, left Neuropathy Surgical History History of total right hip arthroplasty Family & Social History Social History: household members children Prior Living Arrangements House Safety & Behavioral: Feels Safe in Current Yes Environment Been Physically Hurt or No Threatened By a Person Tobacco & Substance use: Smoking Status Never smoker alcohol intake current alcohol intake frequency a few times a month Substance Use Type marijuana Meds Home Medications and Allergies Home Medications Medication Instructions Recorded Confirmed Type ferrous sulfate 325 mg (65 mg 325 mg PO DAILY 12/04/21 12/04/21 History iron) tablet levothyroxine 175 mcg tablet 250 mcg PO QAM 12/04/21 12/04/21 History (Synthroid) mirtazapine 45 mg tablet 45 mg PO BEDTIME 12/04/21 12/04/21 History omeprazole 20 mg capsule,delayed 20 mg PO DAILY 12/04/21 12/04/21 History release rivaroxaban 20 mg tablet (Xarelto) 20 mg PO BEDTIME 12/04/21 12/04/21 History sertraline 100 mg tablet 150 mg PO DAILY 12/04/21 12/04/21 History tolterodine 2 mg tablet 2 mg PO BEDTIME 12/04/21 12/04/21 History vitamin B complex (B 1 tab PO DAILY 12/04/21 12/04/21 History Complex-Vitamin B12 tablet) docusate sodium 100 mg capsule 100 mg PO BID #30 caps 12/06/21 Rx lidocaine 5 % topical patch 1 patch topical BID PRN pain #15 ea 05/24/22 Rx (Lidoderm) hydrocodone 5 mg-acetaminophen 325 1 tab PO Q4HR PRN Pain, Moderate 10/15/22 Rx mg tablet (4-6) #30 tabs Allergies Allergy/AdvReac Type Severity Reaction Status Date / Time gabapentin Allergy Verified 01/05/22 11:54 Review of Systems Review of Systems Narrative: See above Exam Vital Signs (past 8 hours): Oxygen Delivery Method Room Air Narrative Exam Narrative: Please see discharge summary dictated on day of discharge Objective Labs Result Diagrams: 10/15/22 00:15 10/15/22 00:15 Assessment & Plan Assessment & Plan narrative: Atrial fibrillation with rapid ventricular response please see discharge summary dictated 10/1509/26/2051 with full information Time Spent With Patient Critical Care time: I spent a total of [] minutes of critical care time on this patient's care today; this time is exclusive of procedural time.
== END 2022-10-15 18:47 | disposition home or self-care (01) ==
LOC: ED 10-15 02:50 → AC 10-15 03:09
PROVIDERS: Admitting Provider Family Medicine; Emergency Provider Emergency Medicine; PCP Family Medicine; Referring Provider Emergency Medicine; Visit Provider Family Medicine
DX: R07.9 Chest pain, unspecified (principal); Z20.822 Contact with and (suspected) exposure to COVID-19; I48.20 Chronic atrial fibrillation, unspecified; Z79.01 Long term (current) use of anticoagulants
CPT/HCPCS: 36415; 71045; 80053; 80162; 82550; 83690; 84484; 85025; 87635; 93005; 96374; 96375; 99284; C9803; G0378; J1160; J2270; J2405

== ENCOUNTER 2023-01-24 08:54 | Inpatient (IN) | payer MEDICARE, OTHER, SELFPAY ==
[2022-10-15 03:43] VITALS: BMI 23.1
[2023-01-24] VITALS (9 sets, daily range): BP systolic 93–106; BP diastolic 52–75; PULSE 71–100; RESP 17–25; TEMP 36.1–36.6; O2SAT 94–99; BMI 23.6
--- NOTE | 2023-01-24 09:10 | DI.RAD.S_ITS ---
PROCEDURE: XR CHEST 1V INDICATIONS: Shortness of breath TECHNIQUE: One view of the chest was acquired. COMPARISON: [facility], CR, XR CHEST 1V, 05/24/2022, 14:44. [facility], CR, XR CHEST 1V, 10/15/2022, 0:04. FINDINGS: Surgical changes and devices: None. Lungs and pleura: Increased pulmonary vascularity. Bilateral small pleural effusions, left greater than right. No pneumothorax. Mediastinum: Mediastinal contours appear normal. Heart size is mildly increased. Bones and chest wall: No suspicious bony lesions. Overlying soft tissues appear unremarkable. IMPRESSION: Congestive heart failure. Dictated by: Joann Velazquez M.D. on 01/24/2023 at 9:57 Approved by: Joann Velazquez M.D. on 01/24/2023 at 10:01
--- NOTE | 2023-01-24 09:14 | ED_ITS ---
HPI - General Adult General Chief complaint: Shortness of Breath/Dyspnea Stated complaint: Bilateral Edema Lower Ext Time Seen by Provider: 01/24/23 08:56 Source: patient and EMS Mode of arrival: EMS Limitations: no limitations History of Present Illness HPI narrative: Patient is a 77-year-old female. Brought in by EMS for evaluation of bilateral lower extremity swelling and also left breast swelling/pain. She states that the breast swelling started this morning however the lower extremity swelling has been for the past couple days. She does live at an assisted living facility. She does have a PLOST forearm that does say that she would like CPR attempted however she would also like ?limited interventions? she thinks that it was her [id number]-gf-wul who contacted EMS this morning. She states she is hav ing some problems breathing. She is not on oxygen at home. She did receive fentanyl secondary to some discomfort by EMS prior to arrival. She is also on oxygen by EMS. She did have some chest pain earlier today but that has resolved. No abdominal pain. Has overall body aches. Denies any fevers. She does have a medicine list next are.. She is on Xarelto. Has a history of atrial fibrillation. Is also on metoprolol. Also has a diagnosis of heart failure. She does have Lasix on her medicine list however this appeared to be only a 5 day course at some point in the past. Unsure if she is on this on a daily basis. Related Data Home Medications Medication Instructions Recorded Confirmed ferrous sulfate 325 mg (65 mg 325 mg PO DAILY 12/04/21 01/03/23 iron) tablet levothyroxine 175 mcg tablet 250 mcg PO QAM 12/04/21 01/03/23 (Synthroid) mirtazapine 45 mg tablet 45 mg PO BEDTIME 12/04/21 01/03/23 omeprazole 20 mg capsule,delayed 20 mg PO DAILY 12/04/21 01/03/23 release rivaroxaban 20 mg tablet (Xarelto) 20 mg PO BEDTIME 12/04/21 01/03/23 sertraline 100 mg tablet 150 mg PO DAILY 12/04/21 01/03/23 tolterodine 2 mg tablet 2 mg PO BEDTIME 12/04/21 01/03/23 vitamin B complex (B 1 tab PO DAILY 12/04/21 01/03/23 Complex-Vitamin B12 tablet) Previous Rx's Medication Instructions Recorded docusate sodium 100 mg capsule 100 mg PO BID #30 caps 12/06/21 lidocaine 5 % topical patch 1 patch topical BID PRN pain #15 ea 05/24/22 (Lidoderm) hydrocodone 5 mg-acetaminophen 325 1 tab PO Q4HR PRN Pain, Moderate 10/15/22 mg tablet (4-6) #30 tabs Allergies Allergy/AdvReac Type Severity Reaction Status Date / Time gabapentin Allergy Verified 01/24/23 09:07 ibuprofen Allergy Verified 01/24/23 09:07 Review of Systems Review of Systems ROS Unobtainable: All systems reviewed & are unremarkable except as noted in HPI and below Patient History Medical History Fracture of femoral neck, left Neuropathy Surgical History History of total right hip arthroplasty Social History household members: children Smoking Status: Never smoker alcohol intake: current Smoking Status: Never smoker alcohol intake frequency: a few times a month Substance Use Type: marijuana Exam Initial Vital Signs Initial Vital Signs: Vital Signs Temperature 97.6 F 01/24/23 09:00 Pulse Rate 86 01/24/23 09:00 Respiratory Rate 18 01/24/23 09:00 Blood Pressure 106/75 01/24/23 09:00 Pulse Oximetry 97 01/24/23 09:00 Oxygen Delivery Method Room Air 01/24/23 09:00 Const General: cooperative and No ill appearing HENMT Head: normal to inspection and normocephalic Chest Other: Does have edema to the left breast. There is no erythema. Resp Effort & Inspection: not labored and tachypneic Auscultation: clear to auscultation bilaterally Cardio Rate: regular rate Rhythm: regular rhythm GI Inspection: normal to inspection Neuro Other: Alert oriented Extrem Other: Bilateral lower extremity swelling. Does have cool feet to touch. Course Orders Ordered: ED Orders 01/24/23 09:10 XR chest 1V Stat Complete Blood Count AUTO DIFF Stat Comprehensive Metabolic Panel Stat NT-proBNP (BNP-Adult 18+) Stat Troponin I Stat EKG-12 Lead Stat Measure peak expiratory flow ONCE RT Consult Eval and Treat NOW 01/24/23 09:22 Lipase Stat Prothrombin Time INR Stat 01/24/23 11:35 COVID19 -Nasal RAPID Stat Discontinued Medications Furosemide 60 mg/ Sodium (Chloride) 56 mls @ 112 mls/hr IV NOW ONE Stop: 01/24/23 09:16 Last Infusion: 01/24/23 10:28 Dose: 0 mls/hr Documented By: Admin: 01/24/23 09:32 Dose: 112 mls/hr Documented By: AT Vital Signs Vital signs: Vital Signs - 8 hr 01/24/23 09:00 01/24/23 09:30 01/24/23 10:00 Temperature 97.6 F Pulse Rate 86 92 H 94 H Respiratory Rate 18 22 25 H Blood Pressure 106/75 94/58 L 99/52 L Pulse Oximetry 97 94 97 Oxygen Delivery Method Room Air Nasal Cannula Nasal Cannula Oxygen Flow Rate 2 2 01/24/23 10:30 01/24/23 11:00 Temperature Pulse Rate 100 H 94 H Respiratory Rate 23 23 Blood Pressure 101/67 93/59 L Pulse Oximetry 99 99 Oxygen Delivery Method Nasal Cannula Room Air Oxygen Flow Rate 2 Medical Decision Making Differential Diagnosis Condition is:: Inadequately Controlled Chronic Condition is having:: Moderate exacerbation Condition is at treatment goal?: No Lab Data 01/24/23 09:10 01/24/23 09:10 Labs: Lab Results 01/24/23 01/24/23 01/24/23 Range/Units 09:10 09:10 09:22 WBC 6.0 (4.5-11.0) X10^3/uL RBC 3.90 L (4.0-5.2) X10^6/uL Hgb 12.5 (12.0-16.0) g/dL Hct 38.8 (36-46) % MCV 99.6 (80-100) fL MCH 32.0 (26-34) PG MCHC 32.1 (30-36) % RDW 16.5 H (11.6-14.8) % Plt Count 219 (150-400) X10^3/uL Neut % (Auto) 79.8 H (50-75) % Lymph % (Auto) 13.4 L (25-40) % [place] % (Auto) 5.8 (3-14) % Eos % (Auto) 0.6 L (2-4) % Baso % (Auto) 0.4 (0-2) % Neut # (Auto) 4700 (3997-3868) /uL Lymph # (Auto) 800 L (7782-7052) /uL [place] # (Auto) 300 (0-900) /uL Eos # (Auto) 0 (0-450) /uL Baso # (Auto) 0 (0-100) /uL PT 23.3 H (10.1-12.7) SECONDS INR 2.0 H (0.9-1.3) Sodium 137 (137-145) mmol/L Potassium 3.8 (3.4-5.1) mmol/L Chloride 108 H (98-107) mmol/L Carbon Dioxide 20 L (22-32) mmol/L BUN 36 H (7-17) mg/dL Creatinine 1.81 H (0.52-1.04) mg/dL Estimated GFR 29 L (>60) mL/min BUN/Creatinine Ratio 19.9 (6-22) Glucose 90 (80-110) mg/dL Calcium 8.5 (8.4-10.2) mg/dL Total Bilirubin 0.5 (0.2-1.3) mg/dL AST 39 H (14-36) IU/L ALT 30 (<35) IU/L Alkaline Phosphatase 132 H (38-126) U/L Troponin I 0.021 (0.01-0.034) ng/mL NT-Pro-B Natriuret Pep 46396 H (<450) pg/mL Total Protein 5.8 L (6.3-8.2) g/dL Albumin 3.3 L (3.5-5.0) g/dL Globulin 2.5 (1.7-4.1) g/dL Albumin/Globulin Ratio 1.3 (1.0-2.8) Lipase (23-300) U/L 01/24/ Range/Units 09:22 WBC (4.5-11.0) X10^3/uL RBC (4.0-5.2) X10^6/uL Hgb (12.0-16.0) g/dL Hct (36-46) % MCV (80-100) fL MCH (26-34) PG MCHC (30-36) % RDW (11.6-14.8) % Plt Count (150-400) X10^3/uL Neut % (Auto) (50-75) % Lymph % (Auto) (25-40) % [place] % (Auto) (3-14) % Eos % (Auto) (2-4) % Baso % (Auto) (0-2) % Neut # (Auto) (4820-7488) /uL Lymph # (Auto) (5544-9461) /uL [place] # (Auto) (0-900) /uL Eos # (Auto) (0-450) /uL Baso # (Auto) (0-100) /uL PT (10.1-12.7) SECONDS INR (0.9-1.3) Sodium (137-145) mmol/L Potassium (3.4-5.1) mmol/L Chloride (98-107) mmol/L Carbon Dioxide (22-32) mmol/L BUN (7-17) mg/dL Creatinine (0.52-1.04) mg/dL Estimated GFR (>60) mL/min BUN/Creatinine Ratio (6-22) Glucose (80-110) mg/dL Calcium (8.4-10.2) mg/dL Total Bilirubin (0.2-1.3) mg/dL AST (14-36) IU/L ALT (<35) IU/L Alkaline Phosphatase (38-126) U/L Troponin I (0.01-0.034) ng/mL NT-Pro-B Natriuret Pep (<450) pg/mL Total Protein (6.3-8.2) g/dL Albumin (3.5-5.0) g/dL Globulin (1.7-4.1) g/dL Albumin/Globulin Ratio (1.0-2.8) Lipase 200 (23-300) U/L Point of Care Testing Glucose POC 80 Point of care testing: Point of Care Testing Glucose POC 80 Imaging Data Chest x-ray: Radiologist's Impression: PROCEDURE:? XR CHEST 1V ? INDICATIONS:? Shortness of breath ? TECHNIQUE:? One view of the chest was acquired.? ? COMPARISON:? [facility], CR, XR CHEST 1V, 05/24/2022, 14:44.? [facility], CR, XR CHEST 1V, 10/15/2022, 0:04. ? FINDINGS:? ? Surgical changes and devices:? None.? ? Lungs and pleura:? Increased pulmonary vascularity.? Bilateral small pleural effusions, left greater than right.? No pneumothorax.? ? Mediastinum:? Mediastinal contours appear normal.? Heart size is mildly increased.? ? Bones and chest wall:? No suspicious bony lesions.? Overlying soft tissues appear unremarkable.? ? IMPRESSION:? Congestive heart failure. ECG Data Attestation: I personally reviewed and interpreted this ECG as follows: Interpretation: Atrial fibrillation Ventricular rate 92 Occasional PVC Normal axis Normal QRS No ST T wave changes MDM Narrative Medical decision making narrative: Patient is fluid overloaded. This is evident on her exam. She is swollen from her ankles up to her left breast. Her BNP is elevated. Chest x-ray shows fluid overload. She is in AFib this is chronic for her. It appears that she may not have been on her spironolactone for the past several days. Low suspicion for pneumonia. Was given Lasix here in the emergency department with only minimal response. Discussed the case with Dr. Smith we will admit for further evaluation and treatment. Discussed the need for admission with the patient and family bedside. They expressed understanding and agreement as well. Discharge Plan Departure Patient Disposition: Admitted As Inpatient Clinical Impression: Congestive heart failure, Hypoxia, TABITHA (acute kidney injury) Admit Date/Time: 01/24/23 11:37
[2023-01-24] MEDS: FUROSEMIDE 60 MG in SODIUM CHLORIDE 0.9% 50 ML 112 MG IV (09:32)
[2023-01-24 09:39] LABS: Add Manual Diff / Slide Review NO; Basophils Absolute Auto 0 /uL (0-100); Basophils Percent Auto 0.4 % (0-2); Eosinophils Absolute Auto 0 /uL (0-450); Eosinophils Percent Auto 0.6 % (2-4); Hematocrit 38.8 % (36-46); Hemoglobin 12.5 g/dL (12.0-16.0); Lymphocytes Absolute Auto 800 /uL (1100-4500); Lymphocytes Percent Auto 13.4 % (25-40); Mean Corpuscular HGB Conc 32.1 % (30-36); Mean Corpuscular Volume 99.6 fL (80-100); Monocytes Absolute Auto 300 /uL (0-900); Monocytes Percent Auto 5.8 % (3-14); Neutrophils Absolute Auto 4700 /uL (1500-7000); Neutrophils Percent Auto 79.8 % (50-75); Platelet Count 219 X10^3/uL (150-400); Red Cell Distribution Width 16.5 % (11.6-14.8)
--- NOTE | 2023-01-24 09:41 | PC.NURSE ---
Dr. Feliz aware of blood glucose, approved and provided pt egg salad sandwich and apple juice. Pt family member at bedside, reports pt has had lower extremity swelling in the past and this episode is not the worst she has seen. As of 1 week ago, pt legs were not swollen. Pt moved into [facility] approximately 1 weeks ago, has been using wheelchair more over walker and not ambulating as much in facility.
[2023-01-24 09:49] LABS: Prothrombin Time 23.3 SECONDS (10.1-12.7)
[2023-01-24 09:55] LABS: Lipase 200 U/L (23-300)
--- NOTE | 2023-01-24 10:11 | PC.NURSE ---
Per facility records, pt has been off of Spironalactone for 10 days. Family member states she is not sure why and not aware that pt had not been receiving dose, states she will follow up with facility regarding this.
[2023-01-24 10:38] LABS: Alanine Aminotransferase 30 IU/L (<35); Albumin 3.3 g/dL (3.5-5.0); Albumin Globulin Ratio 1.3 (1.0-2.8); Alkaline Phosphatase 132 U/L (38-126); Aspartate Aminotransferase 39 IU/L (14-36); BUN Creatinine Ratio 19.9 (6-22); Bilirubin Total 0.5 mg/dL (0.2-1.3); Blood Urea Nitrogen 36 mg/dL (7-17); Calcium 8.5 mg/dL (8.4-10.2); Carbon Dioxide 20 mmol/L (22-32); Chloride 108 mmol/L (98-107); Estimated Glomerular Filt Rate 29 mL/min (>60); Globulin 2.5 g/dL (1.7-4.1); Glucose 90 mg/dL (80-110); HEMOLYSIS < 15 (0-50); Potassium 3.8 mmol/L (3.4-5.1); Sodium 137 mmol/L (137-145); Total Protein 5.8 g/dL (6.3-8.2)
[2023-01-24 10:49] LABS: NT-proBNP (BNP-Adult 18+) 32400 pg/mL (<450); Troponin I 0.021 ng/mL (0.01-0.034)
[2023-01-24 11:59] LABS: COVID19 -Nasal RAPID Negative (Negative)
--- NOTE | 2023-01-24 13:10 | DI.ECHO.S_ITS ---
[facility]---------+ [facility] +---------+ : : [address] : : : : [id number] : : : : Phone: [phone]+ Echocardiogram Report + + :Name: LEXIS LYMAN Study Date: 01/24/2023 Height: 70 in : :[facility] ReadingLocation: Weight: 165 lb: : Gender: Female BSA: 1.9 m2 : :: 1945 Age: 77 yrs BP: 93/59 mmHg: :Reason For Study: CONGESTIVE HEART FAILURE EXACERBATION : :Ordering Physician: LEA, : :OXANA Performed By: Makayla Davis : :Referring: OXANA TATE : + + Interpretation Summary 1) Severely enlarged left ventricle with severely reduced systolic function (EF 20-25%). 2) Mildly enlarged right ventricle with moderately reduced systolic function. 3) There is moderate to severe mitral regurgitation. 4) There is moderate tricuspid regurgitation. 5) The right ventricular systolic pressure is estimated to be at least 46 mmHg based on an estimated right atrial pressure of 15 mm Hg. 6) There is a moderate left-sided pleural effusion. 7) Compared to the Echo done 07/17/2022, hypervolemia in present on this study. Procedure: A two-dimensional transthoracic echocardiogram with color flow and Doppler was performed. The study quality was technically good. Comparison is made with the echocardiogram of 07/17/2022. The heart rate ranged between 70-117 bpm during the study. Left Ventricle: The left ventricle is severely dilated. The estimated left ventricular end diastolic volume is 209 ml. There is normal left ventricular wall thickness. The ejection fraction is estimated to be 20-25%. There is severe global hypokinesis of the left ventricle. Right Ventricle: The right ventricle is mildly dilated. Right ventricular systolic function is moderately reduced. Atria: The left atrium is severely dilated. The right atrium is severely dilated. There is no Doppler evidence for an interatrial shunt. The interatrial septum bows toward right atrium consistent with elevated left atrial pressure. Mitral Valve: There is moderate mitral annular calcification. The mitral valve leaflets are mildly calcified. There is moderate to severe mitral regurgitation. The mitral regurgitant jet is eccentrically directed. Aortic Valve: The aortic valve is trileaflet. The aortic valve opens well. There is no aortic valve stenosis. There is mild aortic regurgitation. Tricuspid Valve: The tricuspid valve leaflets are thin and pliable. There is moderate tricuspid regurgitation. The right ventricular systolic pressure is estimated to be at least 46 mmHg based on an estimated right atrial pressure of 15 mm Hg. Pulmonic Valve: The pulmonic valve leaflets are thin and pliable; valve motion is normal. There is mild pulmonic regurgitation. Great Vessels: The aortic root is normal size. The dimensions of the ascending aorta are normal. The IVC is dilated (diameter is greater than 2.1 cm) and it collapses less than 50% with a sniff. This suggests a high right atrial pressure of 15 mm Hg. Pericardium/ Pleura There is no pericardial effusion. There is a moderate left-sided pleural effusion. MMode/2D Measurements & Calculations LVIDd: 6.2 cm LVOT diam: 2.2 cm LVIDs: 5.7 cm Ao root diam: 3.3 cm FS: 7.9 % asc Aorta Diam: 3.4 cm EPSS: 2.7 cm Ao Arch Diam (Prox Trans): 2.8 cm IVSd: 0.78 cm LVPWd: 0.88 cm LV burrows. diameter/BSA (cm/m^2): 3.2 LV sys. diameter/BSA (cm/m^2): 3.0 LA A2 area: 43.1 cm2 RA long axis: 6.9 cm LA A4 area: 38.6 cm2 RA area: 34.4 cm2 LA length (vol): 7.7 cm RA vol: 146.3 ml LA vol: 182.6 ml RA : 76.1 ml/m2 LA vol index: 94.9 ml/m2 IVC diam: 2.5 cm RVD1 (basal): 4.1 cm RVD2 (mid): 3.4 cm TAPSE: 1.0 cm Doppler Measurements & Calculations Ao V2 max: 75.2 cm/sec LVOT Max Kb: 54.6 cm/sec Ao V2 mean: 53.4 cm/sec LV V1 max P.2 mmHg Ao max P.3 mmHg LV V1 VTI: 7.6 cm Ao mean P.3 mmHg CALISTA(I,D): 2.8 cm2 Ao V2 VTI: 10.2 cm CALISTA(V,D): 2.7 cm2 sev ratio: 0.75 CALISTA indexed to BSA (cm^2/m^2): 1.5 MV E max kb: 92.8 cm/sec TR max kb: 276.3 cm/sec MV A max kb: 1.5 cm/sec TR max P.5 mmHg MV E/A: 63.9 PA V2 max: 50.3 cm/sec Med Peak E' Kb: 4.1 cm/sec PA V2 mean: 34.3 cm/sec E/E' med: 22.4 PA mean P.55 mmHg Lat Peak E' Kb: 6.7 cm/sec PA pr(Accel): 43.0 mmHg E/E' lat: 13.8 E/e' average: 18.1 MV dec time: 0.17 sec MR ERO: 0.32 cm2 MR PISA: 3.4 cm2 SV(LVOT): 28.7 ml MR flow rate: 125.4 cm3/sec MR PISA radius: 0.74 cm Reading Physician:04:16 PM
--- NOTE | 2023-01-24 13:12 | PM.HP.1 ---
History of Present Illness History of Present Illness Date Patient Seen: 01/24/23 Time Patient Seen: 13:13 Date of Onset of Symptoms: 01/17/23 Chief complaint: Bilateral Edema Lower Ext Narrative: Patient is a 77-year-old female well known to me who presents with bilateral lower extremity swelling shortness of breath breast discomfort. Patient had otherwise no change. She is had no fevers or chills or other changes. She does have an ulcer on her foot which has not been getting better or worse. No other changes. Culture was negative. She has not had any real chest pain but did have some breast pain. That is completely resolved. She really felt like it was in her breast and moved with that. She was seen last week in clinic and Lasix was added. Her spironolactone was not restarted. And has been a few days without any kind of diuretics. She is had otherwise good urine output. No pain with urination. No change in her bowel movements no abdominal pain. Her foot does bother better extremities otherwise have no change other than the swelling. Past medical history is significant for: Depression, dysphagia, Lewy body dementia, history of psychosis, hypothyroidism, urge incontinence, neuropathy nondiabetic, atrial fibrillation past surgical history: Total hip bilateral replacement, right knee replacement, multiple foot surgeries. Gastric bypass. Family history is dad substance abuse heart disease, mother osteoporosis heart disease CVA, sister with breast cancer and osteoporosis. Does not smoke. Does not drink. Patient History Medical History Fracture of femoral neck, left Neuropathy Surgical History History of total right hip arthroplasty Family & Social History Social History: household members children Prior Living Arrangements Skilled Nurse Facility Safety & Behavioral: Feels Safe in Current Yes Environment Been Physically Hurt or No Threatened By a Person Tobacco & Substance use: Smoking Status Never smoker alcohol intake current alcohol intake frequency a few times a month Substance Use Type marijuana Meds Home Medications and Allergies Home Medications Medication Instructions Recorded Confirmed Type ferrous sulfate 325 mg (65 mg 325 mg PO DAILY 12/04/21 01/24/23 History iron) tablet levothyroxine 175 mcg tablet 250 mcg PO QAM 12/04/21 01/24/23 History (Synthroid) mirtazapine 45 mg tablet 45 mg PO BEDTIME 12/04/21 01/24/23 History omeprazole 20 mg capsule,delayed 20 mg PO DAILY PRN Acid Reflux 12/04/21 01/24/23 History release rivaroxaban 20 mg tablet (Xarelto) 20 mg PO BEDTIME 12/04/21 01/24/23 History sertraline 100 mg tablet 150 mg PO DAILY 12/04/21 01/24/23 History tolterodine 2 mg tablet 2 mg PO BEDTIME 12/04/21 01/24/23 History vitamin B complex (B 1 tab PO DAILY 12/04/21 01/24/23 History Complex-Vitamin B12 tablet) docusate sodium 100 mg capsule 100 mg PO BID #30 caps 12/06/21 01/24/23 Rx lidocaine 5 % topical patch 1 patch topical BID PRN pain #15 ea 05/24/22 01/24/23 Rx (Lidoderm) hydrocodone 5 mg-acetaminophen 325 1 tab PO Q4HR PRN Pain, Moderate 10/15/22 01/24/23 Rx mg tablet (4-6) #30 tabs calcium polycarbophil 625 mg 625 mg 1-2XD 01/24/23 01/24/23 History tablet (FiberCon) d-mannose 500 mg capsule (AZO 1,500 mg PO DAILY 01/24/23 01/24/23 History D-Mannose) duloxetine 60 mg capsule,delayed 60 mg PO DAILY 01/24/23 01/24/23 History release lisinopril 2.5 mg tablet 2.5 mg BEDTIME 01/24/23 01/24/23 History Allergies Allergy/AdvReac Type Severity Reaction Status Date / Time gabapentin Allergy Verified 01/24/23 09:07 ibuprofen Allergy Verified 01/24/23 09:07 Review of Systems Review of Systems Narrative: All negative but above Exam Vital Signs (past 8 hours): - 01/24/23 09:00 01/24/23 09:30 01/24/23 10:00 Temperature 97.6 F Pulse Rate 86 92 H 94 H Respiratory Rate 18 22 25 H Blood Pressure 106/75 94/58 L 99/52 L Pulse Oximetry 97 94 97 Oxygen Delivery Method Room Air Nasal Cannula Nasal Cannula Oxygen Flow Rate 2 2 01/24/23 10:30 01/24/23 11:00 01/24/23 12:19 Temperature Pulse Rate 100 H 94 H Respiratory Rate 23 23 Blood Pressure 101/67 93/59 L Pulse Oximetry 99 99 Oxygen Delivery Method Nasal Cannula Room Air Nasal Cannula Oxygen Flow Rate 2 Oxygen Delivery Method Nasal Cannula Oxygen Flow Rate 2 Narrative Exam Narrative: alert female slow speaking in no acute distress. Mucous membranes moist. Neck with moderate JVD to her corner of her jaw. Lungs with diffuse crackles heart is regular rate and rhythm although distant abdomen is soft positive bowel sounds nontender extremities with good pulses but slightly cold 2+ edema bilaterally. Right 4th toe with persistent flexion with ulceration on top. But no redness around it. Neurologic exam is nonfocal Objective Labs 01/24/23 09:10 01/24/23 09:10 Labs: Laboratory Results - last 24 hr 01/24/23 01/24/23 01/24/23 09:10 09:10 09:22 WBC 6.0 RBC 3.90 L Hgb 12.5 Hct 38.8 MCV 99.6 MCH 32.0 MCHC 32.1 RDW 16.5 H Plt Count 219 Neut % (Auto) 79.8 H Lymph % (Auto) 13.4 L [place] % (Auto) 5.8 Eos % (Auto) 0.6 L Baso % (Auto) 0.4 Neut # (Auto) 4700 Lymph # (Auto) 800 L [place] # (Auto) 300 Eos # (Auto) 0 Baso # (Auto) 0 PT 23.3 H INR 2.0 H Sodium 137 Potassium 3.8 Chloride 108 H Carbon Dioxide 20 L BUN 36 H Creatinine 1.81 H Estimated GFR 29 L BUN/Creatinine Ratio 19.9 Glucose 90 Calcium 8.5 Total Bilirubin 0.5 AST 39 H ALT 30 Alkaline Phosphatase 132 H Troponin I 0.021 NT-Pro-B Natriuret Pep 17558 H Total Protein 5.8 L Albumin 3.3 L Globulin 2.5 Albumin/Globulin Ratio 1.3 Lipase SARS-CoV-2 (PCR) 01/24/23 01/24/23 09:22 11:37 WBC RBC Hgb Hct MCV MCH MCHC RDW Plt Count Neut % (Auto) Lymph % (Auto) [place] % (Auto) Eos % (Auto) Baso % (Auto) Neut # (Auto) Lymph # (Auto) [place] # (Auto) Eos # (Auto) Baso # (Auto) PT INR Sodium Potassium Chloride Carbon Dioxide BUN Creatinine Estimated GFR BUN/Creatinine Ratio Glucose Calcium Total Bilirubin AST ALT Alkaline Phosphatase Troponin I NT-Pro-B Natriuret Pep Total Protein Albumin Globulin Albumin/Globulin Ratio Lipase 200 SARS-CoV-2 (PCR) Negative Assessment & Plan Assessment & Plan narrative: acute respiratory failure probably secondary to congestive heart failure. No evidence of pneumonia no evidence of infection. Will continue with O2 support and follow. Suspect will should resolve relatively quickly. Congestive heart failure left acute on chronic. Will obtain echo. Do not believe this is secondary to atrial fibrillation rate control problems but her pressures down and we are going to have to hold her beta-audrey will see how things go. Otherwise she is been stable. She has been worsening over the case recent past. I do not think this is ischemic in nature will see what her echo shows. Continue with aggressive IV diuresis. Follow output will place catheter for that. And follow. Atrial fibrillation. Seems in good control. Her pressure is somewhat down. We are going to have to see how her rate control goes. I am going to hold her beta-audrey. And will see how things go. She understands and will follow. Depression. Patient with significant depression which has been psychotic in the past she seems stable at this time will continue her usual medications and follow closely. Chronic back pain. Patient has been on tramadol intermittently. Will hold for now and use Vicodin as needed. Go back to tremor moan when done. Hypertension. Certainly not an issue right now will hold her beta-audrey and her lisinopril will see how it goes. Follow. History of reflux. Continue her omeprazole will be pantoprazole here. Code status. Stable. Will continue full code DVT prophylaxis on oral anticoagulation Xarelto will continue Disposition expect this to take 2 or 3 days to get her down to an appropriate level but will follow closely. Time Spent With Patient Critical Care time: I spent a total of [] minutes of critical care time on this patient's care today; this time is exclusive of procedural time. Quality VTE Deep Vein Thrombosis/Pulmonary Embolism Present on Admission: No
[2023-01-24] MEDS: DOCUSATE 100 MG CAPSULE PO (21:04)
[2023-01-24] MEDS: MIRTAZAPINE 15 MG TABLET 45 MG PO (21:04)
[2023-01-24] MEDS: OXYBUTYNIN 5 MG ER TAB PO (21:05)
[2023-01-24] MEDS: RIVAROXABAN 10 MG TABLET 20 MG PO (21:05)
[2023-01-25] MEDS: FUROSEMIDE 40 MG/4 ML VIAL IV ×2 (00:07→12:10)
[2023-01-25] MEDS: ACETAMINOPHEN 325 MG TABLET 650 MG PO (00:13)
[2023-01-25 05:00] LABS: Alanine Aminotransferase 27 IU/L (<35); Albumin 3.3 g/dL (3.5-5.0); Albumin Globulin Ratio 1.3 (1.0-2.8); Alkaline Phosphatase 120 U/L (38-126); Aspartate Aminotransferase 33 IU/L (14-36); BUN Creatinine Ratio 19.9 (6-22); Bilirubin Total 0.5 mg/dL (0.2-1.3); Blood Urea Nitrogen 34 mg/dL (7-17); Calcium 8.3 mg/dL (8.4-10.2); Carbon Dioxide 21 mmol/L (22-32); Chloride 106 mmol/L (98-107); Estimated Glomerular Filt Rate 31 mL/min (>60); Globulin 2.6 g/dL (1.7-4.1); Glucose 81 mg/dL (80-110); HEMOLYSIS < 15 (0-50); Potassium 3.1 mmol/L (3.4-5.1); Sodium 137 mmol/L (137-145); Total Protein 5.9 g/dL (6.3-8.2)
[2023-01-25 05:08] LABS: NT-proBNP (BNP-Adult 18+) 31500 pg/mL (<450)
[2023-01-25] MEDS: LEVOTHYROXINE 100 MCG TABLET 200 MCG PO (06:47)
[2023-01-25] MEDS: LEVOTHYROXINE 50 MCG TABLET PO (06:47)
[2023-01-25] MEDS: PANTOPRAZOLE DR 20 MG TABLET PO ×2 (06:48)
[2023-01-25 07:00] VITALS: BP 103/75; PULSE 79; RESP 19; TEMP 35.8; O2SAT 91
[2023-01-25 07:49] VITALS: O2SAT 93
[2023-01-25 09:00] VITALS: O2SAT 94
[2023-01-25] MEDS: SERTRALINE 50 MG TABLET 150 MG PO (09:05)
[2023-01-25] MEDS: DULOXETINE 30 MG CAPSULE 60 MG PO (09:05)
[2023-01-25] MEDS: POTASSIUM CHLORIDE 20 MEQ TAB 40 MEQ PO (10:30)
--- NOTE | 2023-01-25 12:03 | PM.PN.1 ---
Subjective Subjective Interval history: CC: trouble breathing doing ok overnight but still on 4L O2 eating ok able to get to bathroom with some assistance good UOP per nursing Exam Vital Signs (past 8 hours): - 01/25/23 07:49 01/25/23 07:49 01/25/23 07:00 Temperature 96.5 F L Pulse Rate 79 Respiratory Rate 19 Blood Pressure 103/75 Pulse Oximetry 93 91 Oxygen Delivery Method Nasal Cannula Nasal Cannula Oxygen Flow Rate 3 4 Oxygen Delivery Method Nasal Cannula Oxygen Flow Rate 3 Narrative Exam Narrative: fatigued elder watching tv sitting up in chair Const General: comfortable and well developed [facility] Head: normocephalic and atraumatic Eyes General: appearance normal, both eyes and all related structures Resp Other: moving air well, bibasilar crackles on auscutation, 4L via NC Cardio Other: regular rate, S1/S2 GI Other: soft nontender nondistended Neuro General: patient alert, patient awake and patient oriented x3 Extrem Other: pitting edema 2/3+ up to knees bilaterally Objective Labs 01/24/23 09:10 01/25/23 04:32 Labs: Laboratory Results - last 24 hr 01/25/23 04:32 Sodium 137 Potassium 3.1 L Chloride 106 Carbon Dioxide 21 L BUN 34 H Creatinine 1.71 H Estimated GFR 31 L BUN/Creatinine Ratio 19.9 Glucose 81 Calcium 8.3 L Total Bilirubin 0.5 AST 33 ALT 27 Alkaline Phosphatase 120 NT-Pro-B Natriuret Pep 56278 H Total Protein 5.9 L Albumin 3.3 L Globulin 2.6 Albumin/Globulin Ratio 1.3 PFSH Medical History Fracture of femoral neck, left Neuropathy Surgical History History of total right hip arthroplasty Social History household members: none Smoking Status: Never smoker alcohol intake: current Assessment & Plan Assessment & Plan narrative: #Acute respiratory failure probably secondary to congestive heart failure #congestive heart failure diastolic and systolic, present on admission, acute on chronic continue diuresis with lasix 40 bid iv, progressing ok, no signs of infection echocardiogram obtained this admission grossly similar to july 2022 showing EF 20-25%. Although diastolic function could not be assessed signs of CHF were seen on Oct 2022 CXR. BNP now elevated, trending. Still requiring supplemental O2 which she does not use at baseline, continue to diurese #Atrial fibrillation continue home meds with xarelto #Depression Hx of psychosis in the past, seems stable, conntinue her usual medications and follow closely.? #Chronic back pain she takes tramadol intermittently.? Will hold for now and use Vicodin as needed.? Go back to home regimen when done.? #Hypertension trending and resume home regimen as able #History of reflux stable continue PPI.? Code status: full MDM: Mathieu Caldwell [phone] DVT prophylaxis on oral anticoagulation Xarelto will continue Disposition continue diuresis not off O2 yet time spent: 40 min Quality VTE Deep Vein Thrombosis/Pulmonary Embolism Present on Admission: No
--- NOTE | 2023-01-25 13:32 | CM.DANOTE ---
Initial DCP Assessment Note Pt is a 77 yo female, resident at [facility] arrives via EMS with bilateral lower extremity swelling and shortness of breath. Admitted inpatient for acute respiratory failure likely secondary to congestive heart failure. No evidence of pneumonia no evidence of infection per Dr Smith's notes. Patient remains on O2 PCP: Mathieu Smith Payer: [facility] Reviewed chart and placed call to daughter(in law) Selina Caldwell P [phone] who explains patient moved into [facility] approx. 3 weeks ago. RN at [facility] is Mariana Moore P [phone] F [phone]. Selina is hopeful that patient can return to [facility] and can transport upon discharge Placed call to Mariana Moore at [facility] who describes patient as mostly indp w/ADLs w/use of a walker. Patient is continent, ambulates indp w/walker in and out of her room, has assist w/meds and takes a w/c to the dining lackey due to the distance from her apt. Mariana Moore requests clinical and says: 1. Patient will need to be back to functional baseline in order for [facility] staff to safely care for her 2. Depending on therapy notes, she requested they be faxed, Mariana Moore will need to complete a bedside assessment 3. [facility] O. cannot admit patient over the weekend, there will not be appropriate staffing/RN Placed order for PT/OT. According to OT Jewels, patient may benefit from short SNF stay and patient agreeable to this, patient has stayed at [facility] in the past. Referral sent to April at [facility] for review CM team following closely for coordination of DCP; Back to [facility] if patient back to functional baseline vs SNF before return to [facility] AYAD Byrd Discharge Planning/Care Management CM Discharge Assessment Start: 01/25/23 12:39 Freq: Status: Active Protocol: Document 01/25/23 12:39 DENNY (Rec: 01/25/23 13:32 DENNY [id number]) Discharge Planning Assessment Assigned Library Manager AYAD Baires DPOA/Assigned Designee Name Selina Caldwell, daughter (Narda Larson) Contact Information [phone] Advance Directives? Yes: Advance Directive Advance Directives on File No History Provided By Family Member,Medical Record Prior Living Arrangements Assisted Living Comment Patient moved into [facility] 3 weeks ago, daughter would like patient to return upon discharge Household Members none Type of transporation used prior to Relies on Others admit Facility Name Admitted From: [facility] Willing to Return to Facility? Yes Independent with ADL's Yes: Mostly Indp w/walker Is patient alert and oriented? Dementia per H+P, likely mild since patient indp in ADLs Needs Assistance With Meal Prep,Managing Medications ,Home Chores / Shopping Comment SBA for showering if needed Comment Back to [facility] preferred, r/o need for HH Barriers to Discharge Yes Comment Patient lives at [facility], see narrative for detail Discharge Plan Assisted Living Facility Transportation Arrangement TBD
--- NOTE | 2023-01-25 13:55 | OT.IP.EVAL ---
Current Diagnoses Heart failure, unspecified (01/24/23) Past Medical History (Last Reviewed 01/24/23 @ 13:18 by Mathieu Smith MD) Fracture of femoral neck, left Neuropathy Surgical History (Last Reviewed 01/24/23 @ 13:18 by Mathieu Smith MD) History of total right hip arthroplasty Occupational Therapy Inpatient Evaluation/Re-Eval M1 PT/OT-IP Prior Functional Status Start: 01/25/23 13:55 Freq: NEEDED Status: Active Protocol: Document 01/25/23 13:55 [facility] (Rec: 01/25/23 14:20 [facility] [id number]) Medical Review Prior Functional Status Communication Independent but has word finding difficulties at times, pt states this is typical for her. Mobility and Gait Pt states uses a FWW or furniture cruises in her apartment and use of wc to get to and from the dining room. Activities of Daily Living and IADL's Pt states does all of her own ADL on her own and assist for IADL needs. Prior Functional Level (Other details) Pt states recently moved into [facility] due to family was working longer hours and that no one was home to assist her when needed. Pt then states had hired assist to come assist her , but no moved to [facility]. Social History Household Members none Living Arrangements Assisted Living Number of Stairs To Enter/Railing? Pt lives on the 3rd floor. Home Environment High Toilet,Walk in Shower Home Equipment Front Wheel Walker,Four Wheel Walker,Manual Wheelchair, Shower Seat with Backrest,Hand Held Shower,Grab Bars Near Toilet,Grab Bars In Shower Additional Social History Comment Pt lives at [facility]. M2 OT-IP Current Condition Start: 01/25/23 13:55 Freq: Status: Active Protocol: Document 01/25/23 13:55 [facility] (Rec: 01/25/23 14:20 [facility] [id number]) Occupational Therapy Current Condition Current Condition Evaluation Date 01/25/23 Treatment Diagnosis Acute respiratory failure Diagnosis Onset Date 01/24/23 M3 OT- IP Subjective and Pain Start: 01/25/23 13:55 Freq: Status: Active Protocol: Document 01/25/23 13:55 [facility] (Rec: 01/25/23 14:20 [facility] [id number]) OT- Subjective Occupational Therapy Visit Type Type Initial Evaluation Visit Start Time 13:08 Visit Stop Time 13:55 Total Visit Minutes 47 Occupational Therapy Visit Comments Patient Comments Pt agreed to get up. Patient/Caregiver Goals To get better. OT Pain Assessment Pain When Pain Assessed At Rest Pain Present Pain Present Denied Pain M4 OT- IP ADL's Start: 01/25/23 13:55 Freq: Status: Active Protocol: Document 01/25/23 13:55 [facility] (Rec: 01/25/23 14:20 [facility] [id number]) OT [id number]-Sxvervc Comments OT Self-Feeding Comments Not at meal time. OT ADL-Grooming Comments OT Grooming Comments Not performed as just wanting to get back to bed. OT ADL-Oral Care Comments Oral Care Comments Not performed. OT ADL-Dressing General Eval Lower Body Dressing Ability Minimal Assistance Comments OT Dressing Comments While seated assist to help straighten her socks. Pt will needs assist for LB dressing needs while standing due to decreased balance. OT ADL-Toileting Comments OT Toileting Comments Pt not having to go at this time, BSC safer to use at this time due to decreased balance and low BP. OT ADL-Bathing Comments OT Bathing Comments Not performed. M5 OT- IP IADL's Start: 01/25/23 13:55 Freq: Status: Active Protocol: Document 01/25/23 13:55 [facility] (Rec: 01/25/23 14:20 [facility] [id number]) OT-Instrumental Activities of Daily Living Deficits IADL Deficits Identified Deficits Home Safety Awareness Awareness of Need for Assistance at Home Decreased Awareness Medication Management Medication Management Caregiver Administers Money Management Money Management Caregiver Provides Assistance Meal Preparation Meal Preparation Caregiver Provides Assist [employer] Band Teacher [employer] Band Teacher Caregiver Provides Assist M6 OT- IP Functional Cognition Start: 01/25/23 13:55 Freq: Status: Active Protocol: Document 01/25/23 13:55 [facility] (Rec: 01/25/23 14:20 [facility] [id number]) Cognitive Factors Limiting Selfcare Function Cognitive Ability Level of Alertness Alert,Confusional State Patient Orientation Name,Year,Situation Attention Span Ability Capable of Focused Attention, Capable of Sustained Attention Ability to Follow Commands Able to Follow One Step Commands with Increased Time, Able to Follow One Step Commands with Repetition Memory Description Short Term Impaired Cognitive Tests SLUMS Pt scored 20/30 , states it is Sunday versus , not able to calculate 100-23, able to state 5 animals in one minute, able to recall 2/5 objects after time passed, not able to states 4 digit number backwards, and not able to write in the hands on the clock correctly after time given. Cognitive Comments Cognitive Assessment Comments Pt able to follow commands and at times needing increased time to follow. Pt scored 20/ 30 on the SLUMS which implies borderline dementia. Pt states prior has difficulty to get her words out. When asking pt prior level of history questions appears to get her living situations mixed up as just moved to the [facility] recently. OT- Vision and Hearing OT- Hearing Assessment OT- Hearing Assessment WFL OT- Vision Assessment Visual Attentiveness WFL Occular Pursuits WFL Visual Convergence WFL Visual Moe WFL Diplopia Absent M7 OT- IP Mobility and Balance Start: 01/25/23 13:55 Freq: Status: Active Protocol: Document 01/25/23 13:55 [facility] (Rec: 01/25/23 14:20 [facility] [id number]) OT- Bed Mobility Assessment Sit to Supine Sit to Supine Assist Minimal Assistance OT-Transfer Assessment Sit to and From Stand Sit to and from Stand Minimal Assistance,Moderate Assistance Transfers Transfer Ability Minimal Assistance,Moderate Assistance Technique Transfer Destination Bed,Chair Transfer Technique Stand Step Pivot Devices Transfer Assistive Devices Gait Belt,Front Wheeled Walker Comments Mobility Comments Pt states has a lift chair but only uses it as needed at home. Pt from FERNIE to MODA to stand to FWW. MIN/MODA for balance and to help guide the FWW for the transfer. Pt having difficulty to move her left foot during the transfer and needing cues to lift up her left foot. OT- Balance Assessment Sitting Balance and Reactions Static Sitting Balance Ability Normal Dynamic Sitting Balance Ability Good Standing Balance and Reactions Static Standing Balance Ability Fair Dynamic Standing Balance Ability Poor M8 OT- IP Objective Assessments Start: 01/25/23 13:55 Freq: Status: Active Protocol: Document 01/25/23 13:55 [facility] (Rec: 01/25/23 14:20 [facility] [id number]) OT Gross Range of Motion Upper Extremity Range of Motion Assessment Left Impaired ROM Impairments Slightly impaired at edge ROM OT Strength Comments Strength Comments WFL for age and lifestyle OT- Coordination Assessment Upper Extremity Finger to Nose Test Left UE Impaired Comments Coordination Comments left hand slightly off OT-Muscle Tone Assessment Muscle Tone WNL Yes M9 OT- IP Assessment and Plan Start: 01/25/23 13:55 Freq: Status: Active Protocol: Document 01/25/23 13:55 [facility] (Rec: 01/25/23 14:20 [facility] [id number]) OT Summary Assessment and Plan Potential Rehabilitation Potential Good Analytic Complexity at Evaluation Moderate Summary OT Impairments Balance,Functional Cognition, Functional Mobility,Self- Feeding,Grooming,Dressing, Toileting,Bathing,Toilet Transfers,Shower Transfers, Activity Tolerance Progress Towards Goals Slow Progress due to Medical Issues,Slow Progress due to Activity Tolerance,Slow Progress due to Cognition Assessment Summary Pt MOD complexity and here due to Acute respiratory failure and on 4L of O2 and drops to 85% when standing and taking 30 seconds to recover above 90 %, however noted it is difficult to get O2 readings on the pt due to her cold hands. Pt's BP readings are low sitting 88/53 with legs up, sitting legs down 86/47, standing 88/55, and sitting 90/56. Pt states prior completely independent in the room for ADL needs and at this time unsteady on her feet, needing 4L of O2 and would benefit from short skilled rehab prior to going home. Pt is cooperative and motivated to get better. Goals Self-Feeding Goal Independent Grooming Goal Independent Dressing Goal Independent Toileting Goal Independent Bathing Goal Independent Toilet Transfer Goal Independent Shower Transfer Goal Independent Days to Meet Goals 10 Frequency of Treatment Frequency Of Treatment Once a Day Treatment Plan OT Treatment Plan ADL Training,Functional Cognition Training,Functional Mobility,Patient/Family Education,Discharge Planning Other Treatment Recommendations and Next stand at sink for ADL needs Treatment Focus and endurance Discharge Recommendations OT Discharge Recommendations SNF Rehab Transportation Needs at Discharge Private Vehicle,Wheelchair/ Cabulance
--- NOTE | 2023-01-25 16:37 | PT.IIE ---
Current Diagnoses Heart failure, unspecified (01/24/23) Surgical History (Last Reviewed 01/24/23 @ 13:18 by Mathieu Smith MD) History of total right hip arthroplasty Medical History (Last Reviewed 01/24/23 @ 13:18 by Mathieu Smith MD) Fracture of femoral neck, left Neuropathy Physical Therapy Inpatient Evaluation/Re-Eval M1 PT/OT-IP Prior Functional Status Start: 01/25/23 13:55 Freq: NEEDED Status: Active Protocol: Document 01/25/23 16:37 [facility] (Rec: 01/25/23 16:54 [facility] [id number]) Medical Review Prior Functional Status Medical History Reviewed Yes Diet/Fluid Consistency Regular Communication Independent but has word finding difficulties at times, pt states this is typical for her. Mobility and Gait Pt states uses a FWW or furniture cruises in her apartment and use of wc to get to and from the dining room. She prepels the wheelchair with her legs. She reports a hx of one leg longer than the other. No reports no recent falls. Activities of Daily Living and IADL's Pt states does all of her own ADL on her own and assist for IADL needs. Prior Functional Level (Other details) Pt states recently moved into [facility] due to family was working longer hours and that no one was home to assist with her needs at times. Social History Household Members none Living Arrangements Assisted Living Number of Floors (Floors) One Floor Number of Stairs To Enter/Railing? Pt lives on the 3rd floor. Elevator Home Environment High Toilet,Walk in Shower Home Equipment Front Wheel Walker,Four Wheel Walker,Manual Wheelchair, Shower Seat with Backrest,Hand Held Shower,Grab Bars Near Toilet,Grab Bars In Shower Additional Social History Comment Pt lives at [facility]. M2 PT-IP Current Condition Start: 01/25/23 16:37 Freq: NEEDED Status: Active Protocol: Document 01/25/23 16:37 [facility] (Rec: 01/25/23 16:54 [facility] [id number]) Physical Therapy Current Condition Current Condition Evaluation Date 01/25/23 Treatment Diagnosis CHF, impaired gait Onset Date 01/24/23 M3 PT-IP Subjective Start: 01/25/23 16:37 Freq: NEEDED Status: Active Protocol: Document 01/25/23 16:37 [facility] (Rec: 01/25/23 16:54 [facility] [id number]) Subjective Physical Therapy Visit Type Type Initial Evaluation Visit Start Time 16:00 Visit Stop Time 16:37 Total Visit Minutes 37 Number of PAPER BAG INSPECTOR Visits 0 Physical Therapy Visit Comments Patient Comments She reports she is getting tired faster than normal with activity. She does not wear oxygen at home Patient Goals be strong enough to return to her apt at [facility] Pain Assessment Pain When Pain Assessed During Mobility Pain Present Pain Present Pain Reported Location Right Knee Intensity 6 Scale Used Numeric (0 - 10) Description Aching Pain Behaviors Guarding,Holding Area Pain Management Techniques Re-positioning M4 PT-IP Mobility and Gait Start: 01/25/23 16:37 Freq: NEEDED Status: Active Protocol: Document 01/25/23 16:37 [facility] (Rec: 01/25/23 16:54 [facility] [id number]) PT-Bed Mobility Assessment Supine to Sit Supine to Sit Standby Assistance,Bedrails Scooting Scooting to Edge of Bed Independent PT-Transfer Assessment Sit to and From Stand Sit to and from Stand Contact Guard Assistance,Use of Upper Extremities Equipment Transfer Assistive Device Gait Belt,Front Wheeled Walker Transfers Transfer Destination Bed,Chair Transfer Technique Stand Step Pivot Transfer Ability Level of Assist Minimal Assistance,Moderate Assistance,Use of Upper Extremities Comments Mobility Comments She is unsafe during turns with right foot not keeping up with her left LE Gait Assessment Gait Gait Assistance Required: Minimum Assistance Assistive Devices Assistive Device Gait Belt,Front Wheeled Walker Gait Deviations General Gait Pattern Antalgic,Festinating Factors Limiting Gait Function Factors Limiting Gait Function Decreased Activity Tolerance, Pain,Poor Balance Comments Gait Comments Pt keeps right knee flexed and ambulates on right forefoot. She does not flatten right foot out on the floor. She can take functional steps with a lot of effort. During turns her steps are short and disorganized with right foot not keeping up to the left causing decreased balance. Stair Climbing Assessment Comments Stair Climbing Comments no stairs at her A.[facility] apt PT-Balance Assessment Sitting Balance and Reactions Static Sitting Balance Ability Good Dynamic Sitting Balance Ability Good Standing Balance and Reactions Static Standing Balance Ability Fair Dynamic Standing Balance Ability Poor Device Used FWW M5 PT-IP Objective Assessments Start: 01/25/23 16:37 Freq: NEEDED Status: Active Protocol: Document 01/25/23 16:37 [facility] (Rec: 01/25/23 16:54 DL [id number]) Orientation Orientation/Cognition Level of Alertness Alert Orientation Name,Age,Birthday,Month,Year Language Function Ability Garbled Speech Safety Awareness Understands Safety Issues Memory Description Short Term Impaired Comments she knows she is in the hospital but can not give the name, she can remember name of facility where she lives, intermittently her speech is hard to understand but she can repeat it more clearly when asked Gross Range of Motion Upper Extremity ROM Assessment Within Functional Limits Lower Extremity ROM Assessment Within Functional Limits Strength Upper Extremity Strength Assessment Within Functional Limits Lower Extremity Strength Assessment Within Functional Limits Hip seated hip flexion 4+/5 Knee seated flex/ext 5/5 Ankle DF 5/5 Coordination Assessment Gross Coordination Gross Coordination Impaired Assessment Coordination Comments mild tremors Sensation Assessment Comments Sensation Comments hx neuropathy, no changes reported by pt Muscle Tone Muscle Tone WNL Yes Other Assessments Other Other Assessments noted right LE is longer than left M6 PT-IP Treatment Start: 01/25/23 16:37 Freq: NEEDED Status: Active Protocol: Document 01/25/23 16:37 [facility] (Rec: 01/25/23 16:54 REPLACED BY [facility] [id number]) Physical Therapy Treatment Education Education Provided Safety Other Treatments Other Treatment Performed pt left up in recliner this visit with chair alarm in use and call light close M7 PT-IP Assessment and Plan Start: 01/25/23 16:37 Freq: NEEDED Status: Active Protocol: Document 01/25/23 16:37 [facility] (Rec: 01/25/23 16:54 REPLACED BY [facility] [id number]) PT Summary Assessment and Plan Potential Rehabilitation Potential Good Status of Condition at Evaluation Evolving Summary Impairments Pain,Strength,Balance, Transfers,Gait,Activity Tolerance Assessment Summary Mary is alert and resting in bed. She has her O2 off with sats 88%. Placed her O2 back on for therapy session. She demonstrates and altered gait pattern with right knee flexed and pt on her right forefoot. She is unsafe during turns with right foot not keeping up with the left and she losses her balance. Her feet stay more organized during gait than during turns of any kind. She complains of right knee pain during gait and she rubs her knee after a sitting rest break. She does have a right LE longer than left. She reports it is normal for her to walk with right knee bent but unclear why she is unsafe with turns at this time. She is not safe to return to her apt and independent gait. She will need SNF rehab at this time to return to independent gait and transfers. Goals Bed Mobility Goal Independent Transfer Goal Independent,Front Wheeled Walker Gait Goal Independent,Front Wheel Walker Gait Distance 50 feet Days to Meet Goals 5 Frequency of Treatment Frequency Of Treatment Twice a Day Treatment Plan Physical Therapy Treatment Plan Bed Mobility Training,Transfer Training,Gait Training, Therapeutic Exercise,Balance Retraining,Discharge Planning, Neuromuscular Re-ed Recommendations To Nursing Amount of Assist Needed 1 Person Assist Discharge Recommendations PT Discharge Recommendations SNF Rehab Transportation Needs at Discharge Private Vehicle,Wheelchair/ Cabulance
[2023-01-25 19:00] VITALS: O2SAT 98
[2023-01-25 19:40] VITALS: BP 98/56; PULSE 77; RESP 18; TEMP 36.2; O2SAT 94
[2023-01-25] MEDS: MIRTAZAPINE 15 MG TABLET 45 MG PO (21:26)
[2023-01-25] MEDS: RIVAROXABAN 10 MG TABLET 20 MG PO (21:26)
[2023-01-25] MEDS: OXYBUTYNIN 5 MG ER TAB PO (21:26)
[2023-01-25] MEDS: DULOXETINE 30 MG CAPSULE PO (21:26)
[2023-01-25] MEDS: HYDROCODONE/ACET 5/325 TABLET 1 TAB PO (21:26)
[2023-01-26] MEDS: FUROSEMIDE 40 MG/4 ML VIAL IV ×2 (00:34→11:10)
[2023-01-26] MEDS: LEVOTHYROXINE 50 MCG TABLET PO (06:20)
[2023-01-26] MEDS: LEVOTHYROXINE 100 MCG TABLET 200 MCG PO (06:20)
[2023-01-26] MEDS: PANTOPRAZOLE DR 20 MG TABLET PO (06:20)
[2023-01-26 06:23] LABS: HEMOLYSIS < 15 (0-50); Potassium 3.3 mmol/L (3.4-5.1)
[2023-01-26 07:00] VITALS: PULSE 96; O2SAT 93; O2SAT 96
[2023-01-26 08:08] VITALS: BP 100/52; PULSE 115; RESP 18; TEMP 35.9; O2SAT 97
[2023-01-26] MEDS: DULOXETINE 30 MG CAPSULE 60 MG PO (08:34)
[2023-01-26] MEDS: SERTRALINE 50 MG TABLET 150 MG PO (08:34)
[2023-01-26] MEDS: HYDROCODONE/ACET 5/325 TABLET 1 TAB PO ×3 (08:37→21:13)
[2023-01-26 08:46] VITALS: O2SAT 98
--- NOTE | 2023-01-26 09:35 | OT.IP.TRT ---
Current Diagnoses Heart failure, unspecified (01/24/23) Occupational Therapy Treatment Note M2 OT-IP Current Condition Start: 01/25/23 13:55 Freq: Status: Active Protocol: Document 01/25/23 13:55 [facility] (Rec: 01/25/23 14:20 [facility] [id number]) Occupational Therapy Current Condition Current Condition Evaluation Date 01/25/23 Treatment Diagnosis Acute respiratory failure Diagnosis Onset Date 01/24/23 M3 OT- IP Subjective and Pain Start: 01/25/23 13:55 Freq: Status: Active Protocol: Document 01/26/23 09:07 [facility] (Rec: 01/26/23 12:05 [facility] [id number]) OT- Subjective Occupational Therapy Visit Type Type Treatment Note Visit Start Time 09:07 Visit Stop Time 09:35 Total Visit Minutes 28 Occupational Therapy Visit Comments Patient Comments Pt agreed to get up to brush her teeth. Patient/Caregiver Goals To go to skilled rehab. OT Pain Assessment Pain When Pain Assessed At Rest Pain Present Pain Present Denied Pain M4 OT- IP ADL's Start: 01/25/23 13:55 Freq: Status: Active Protocol: Document 01/26/23 09:07 [facility] (Rec: 01/26/23 12:05 [facility] [id number]) OT [id number] Comments OT Self-Feeding Comments Not at meal time. OT ADL-Grooming General Evaluation Grooming Ability Independent Areas Needing Assistance Retrieving/Set-up of Grooming Items OT ADL-Oral Care General Eval Oral Care Ability Independent Areas of Assistance Retrieving/Set-Up of Items Comments Oral Care Comments Able to do while standing with FWW. OT ADL-Dressing General Eval Lower Body Dressing Ability Moderate Assistance Comments OT Dressing Comments Assist to help kee her socks. OT ADL-Toileting Comments OT Toileting Comments Nursing able to disconnect the Purewick and encouraged pt to use the bsc/toilet with nursing when up. OT ADL-Bathing Comments OT Bathing Comments Not performed. M5 OT- IP IADL's Start: 01/25/23 13:55 Freq: Status: Active Protocol: Document 01/25/23 13:55 [facility] (Rec: 01/25/23 14:20 [facility] [id number]) OT-Instrumental Activities of Daily Living Deficits IADL Deficits Identified Deficits Home Safety Awareness Awareness of Need for Assistance at Home Decreased Awareness Medication Management Medication Management Caregiver Administers Money Management Money Management Caregiver Provides Assistance Meal Preparation Meal Preparation Caregiver Provides Assist Asbestos Removal Worker Asbestos Removal Worker Caregiver Provides Assist M6 OT- IP Functional Cognition Start: 01/25/23 13:55 Freq: Status: Active Protocol: Document 01/26/23 09:07 [facility] (Rec: 01/26/23 12:05 [facility] [id number]) Cognitive Factors Limiting Selfcare Function Cognitive Ability Level of Alertness Alert Patient Orientation Name,Year,Situation Attention Span Ability Capable of Focused Attention, Capable of Sustained Attention Ability to Follow Commands Able to Follow One Step Commands Memory Description Short Term Impaired Cognitive Comments Cognitive Assessment Comments Pt needing cues to keep arun FWW at an appropriate distance from her as she tends to have it too close. M7 OT- IP Mobility and Balance Start: 01/25/23 13:55 Freq: Status: Active Protocol: Document 01/26/23 09:07 [facility] (Rec: 01/26/23 12:05 [facility] [id number]) OT- Bed Mobility Assessment Supine to Sit Supine to Sit Assist Standby Assistance Sit to Supine Sit to Supine Assist Contact Guard Assistance OT-Transfer Assessment Sit to and From Stand Sit to and from Stand Contact Guard Assistance, Minimal Assistance Transfers Transfer Ability Contact Guard Assistance, Minimal Assistance Technique Transfer Destination Bed,Chair Transfer Technique Stand Step Pivot Devices Transfer Assistive Devices Gait Belt,Front Wheeled Walker Comments Mobility Comments CGA to stand form raised bed as she has at home, FERNIE from lower surfaces to FWW. Pt O2 on 4L at 99% and per nursing to trial 2L and O2 at 93%, however pt's resting hr at 126 , nursing notified. OT- Balance Assessment Sitting Balance and Reactions Static Sitting Balance Ability Normal Dynamic Sitting Balance Ability Good Standing Balance and Reactions Static Standing Balance Ability Good Dynamic Standing Balance Ability Fair M8 OT- IP Objective Assessments Start: 01/25/23 13:55 Freq: Status: Active Protocol: Document 01/25/23 13:55 [facility] (Rec: 01/25/23 14:20 [facility] [id number]) OT Gross Range of Motion Upper Extremity Range of Motion Assessment Left Impaired ROM Impairments Slightly impaired at edge ROM OT Strength Comments Strength Comments WFL for age and lifestyle OT- Coordination Assessment Upper Extremity Finger to Nose Test Left UE Impaired Comments Coordination Comments left hand slightly off OT-Muscle Tone Assessment Muscle Tone WNL Yes M9 OT- IP Assessment and Plan Start: 03/23/23 13:55 Freq: Status: Active Protocol: Document 01/26/23 09:07 [facility] (Rec: 01/26/23 12:05 [facility] [id number]) OT Summary Assessment and Plan Potential Rehabilitation Potential Good Analytic Complexity at Evaluation Moderate Summary OT Impairments Balance,Functional Cognition, Functional Mobility,Self- Feeding,Grooming,Dressing, Toileting,Bathing,Toilet Transfers,Shower Transfers, Activity Tolerance Progress Towards Goals Progressing Toward Goals Assessment Summary Pt doing better today and able to get to the sink and back with FWW and CGA/FERNIE. Pt looking to go to skilled rehab tomorrow and is very pleasant and cooperative. Goals Self-Feeding Goal Independent Grooming Goal Independent Dressing Goal Independent Toileting Goal Independent Bathing Goal Independent Toilet Transfer Goal Independent Shower Transfer Goal Independent Days to Meet Goals 9 Frequency of Treatment Frequency Of Treatment Once a Day Treatment Plan OT Treatment Plan ADL Training,Functional Cognition Training,Functional Mobility,Patient/Family Education,Discharge Planning Discharge Recommendations OT Discharge Recommendations SNF Rehab Transportation Needs at Discharge Private Vehicle,Wheelchair/ Cabulance
--- NOTE | 2023-01-26 11:28 | PT.IPTN ---
Current Diagnoses Heart failure, unspecified (01/24/23) Physical Therapy Treatment Note M2 PT-IP Current Condition Start: 01/25/23 16:37 Freq: NEEDED Status: Active Protocol: Document 01/25/23 16:37 DLM (Rec: 01/25/23 16:54 DLM [id number]) Physical Therapy Current Condition Current Condition Evaluation Date 01/25/23 Treatment Diagnosis CHF, impaired gait Onset Date 01/24/23 M3 PT-IP Subjective Start: 01/25/23 16:37 Freq: NEEDED Status: Active Protocol: Document 01/26/23 12:17 TS (Rec: 01/26/23 13:14 TS [id number]) Subjective Physical Therapy Visit Type Type Treatment Note Visit Start Time 11:28 Visit Stop Time 11:59 Total Visit Minutes 31 Number of FUNDRAISING MANAGER Visits 1 Physical Therapy Visit Comments Patient Comments Pt unreliable historian, reports she is living with son and [id number] when she' s been in an JAIL, c/o pain in back. Patient Goals be strong enough to return to her apt at [facility] Pain Assessment Pain When Pain Assessed During Mobility Pain Present Pain Present Pain Reported M4 PT-IP Mobility and Gait Start: 01/25/23 16:37 Freq: NEEDED Status: Active Protocol: Document 01/26/23 12:17 TS (Rec: 01/26/23 13:14 TS [id number]) PT-Bed Mobility Assessment Supine to Sit Supine to Sit Standby Assistance,Bedrails Sit to Supine Sit to Supine Standby Assistance Scooting Scooting to Edge of Bed Independent PT-Transfer Assessment Sit to and From Stand Sit to and from Stand Standby Assistance,Contact Guard Assistance Equipment Transfer Assistive Device Gait Belt,Front Wheeled Walker Transfers Transfer Destination Bedside Commode Transfer Technique Stand Step Pivot Transfer Ability Level of Assist Minimal Assistance Comments Mobility Comments Pt found resting in bed, reports wanting to use commode , agreeable to PT session. Vitals: Supine 90/53, Sitting EOB 103/63, Spo2 3.5L, not able to get O2 reading from monitor. Supine to sit SBA with BUE support on bed for uprighting trunk. She scooted EOB independently with BUE support. Sit to stand x2 SBA, provided cues for weight forward. In standing she flexes right knee and stands on her forefoot, heavily offloads weight into arms on FWW. She performed stand step pivot transfer to bedside commode with Kristie and management of lines. She doffed briefs and purewick in standing with no AD before sitting on commode, no BM. She performed sit to stand x1 SBA , required assistance donning brief and cues for BUE support on arm rests of commode. She ambulated 2x15' SBA with a step to gait, R flexed knee and on forefoot requiring lots of effort, no LOB or buckling . She c/o dizziness and some signs of SOB after 20', required cues for PLB, symptoms improved. Sit to supine SBA, with increased effort to get LE's back in bed . She was left in bed with call light and tray nearby, bed alarm on, RN notified. Gait Assessment Gait Gait Assistance Required: Minimum Assistance Distance (Feet) 35 Assistive Devices Assistive Device Gait Belt,Front Wheeled Walker Gait Deviations General Gait Pattern Antalgic,Festinating Factors Limiting Gait Function Factors Limiting Gait Function Decreased Activity Tolerance, Pain,Poor Balance Comments Gait Comments See mobility comments. Stair Climbing Assessment Comments Stair Climbing Comments no stairs at her A.L apt PT-Balance Assessment Sitting Balance and Reactions Static Sitting Balance Ability Good Dynamic Sitting Balance Ability Good Standing Balance and Reactions Static Standing Balance Ability Fair Dynamic Standing Balance Ability Poor Device Used FWW M5 PT-IP Objective Assessments Start: 01/25/23 16:37 Freq: NEEDED Status: Active Protocol: Document 01/25/23 16:37 DLM (Rec: 01/25/23 16:54 DLM [id number]) Orientation Orientation/Cognition Level of Alertness Alert Orientation Name,Age,Birthday,Month,Year Language Function Ability Garbled Speech Safety Awareness Understands Safety Issues Memory Description Short Term Impaired Comments she knows she is in the hospital but can not give the name, she can remember name of facility where she lives, intermittently her speech is hard to understand but she can repeat it more clearly when asked Gross Range of Motion Upper Extremity ROM Assessment Within Functional Limits Lower Extremity ROM Assessment Within Functional Limits Strength Upper Extremity Strength Assessment Within Functional Limits Lower Extremity Strength Assessment Within Functional Limits Hip seated hip flexion 4+/5 Knee seated flex/ext 5/5 Ankle DF 5/5 Coordination Assessment Gross Coordination Gross Coordination Impaired Assessment Coordination Comments mild tremors Sensation Assessment Comments Sensation Comments hx neuropathy, no changes reported by pt Muscle Tone Muscle Tone WNL Yes Other Assessments Other Other Assessments noted right LE is longer than left M6 PT-IP Treatment Start: 01/25/23 16:37 Freq: NEEDED Status: Active Protocol: Document 01/26/23 12:17 TS (Rec: 01/26/23 13:14 TS [id number]) Physical Therapy Treatment Education Education Provided Safety M7 PT-IP Assessment and Plan Start: 01/25/23 16:37 Freq: NEEDED Status: Active Protocol: Document 01/26/23 12:17 TS (Rec: 01/26/23 13:14 TS [id number]) PT Summary Assessment and Plan Potential Rehabilitation Potential Good Status of Condition at Evaluation Evolving Summary Impairments Pain,Strength,Balance, Transfers,Gait,Activity Tolerance Assessment Summary Mary is found resting in bed on 3.5L of O2. She was SBA-IND for bed mobility and sit to stands SBA this session. Mary progressed her ambulation distance this session to ~35'. She continues to flex her R knee and stand on forefoot requiring increased effort to ambulate in room, no LOB. She c/o of SOB/dizziness, LE's feeling like glue and pain in back after ~20', gave cues for PLB and symptoms improved. She had decreased difficulty with turns in FWW this session , no signs of LOB or assist provided. PT recommends SNF to improve her activity tolerance and progress gait. Goals Bed Mobility Goal Independent Transfer Goal Independent,Front Wheeled Walker Gait Goal Independent,Front Wheel Walker Gait Distance 50 feet Days to Meet Goals 5 Frequency of Treatment Frequency Of Treatment Twice a Day Treatment Plan Physical Therapy Treatment Plan Bed Mobility Training,Transfer Training,Gait Training, Therapeutic Exercise,Balance Retraining,Discharge Planning, Neuromuscular Re-ed Other Recommendations and Next Treatment Progress gait. Focus
--- NOTE | 2023-01-26 12:02 | CM.DPNOTE ---
DCP Note [facility] can accept patient for admission as early as tomorrow. PASRR completed CM team following closely; need to review DCP with patient and w/LUCHO Marks to solidify plans, anticipate patient will be discharged tomorrow JW
[2023-01-26] MEDS: POTASSIUM CHLORIDE 20 MEQ TAB 40 MEQ PO (12:30)
--- NOTE | 2023-01-26 14:23 | CM.DPC ---
DCP SNF vs [facility] Per MD, pt may likely be stable for d/c tomorrow Sat although pt remains on about 3LO2 which pt does not have oxygen at baseline. [facility] confirmed they can accept pt Sat if stable for d/c. EDEL called pt's contact Dtr efren Marks and explained role and updated her on [facility] stating pt needs to be baseline to accept back and feel pt would benefit from SNF and [facility] cannot accept over the weekend. SW discussed possible need for SNF and Selina really hopeful due to pt's mild dementia that pt could return to [facility] rather than have multiple transitions to/from SNF. SW discussed the barriers and that if pt medically stable cannot remain in the hospital and she acknowledges understanding. Selina SNF preference if SNF needed is [facility] and SW confirmed they are still on hold for admissions due to COVID+ residents. EDEL updated that [facility] also full until mid next week. Selina states she is not opposed to [facility] but will need to think if she would like further SNF referrals placed or have [facility] as the SNF preference. SW strongly encouraged her to meet with [facility] to discuss them accepting pt back and encouraging them to complete bedside assessment as Selina feels pt is at her baseline for ambulation although oxygen is new and could complicate ambulation. Selina plans to go to [facility] today to discuss further. Selina confirms that Neurologist is completing tests to confirm likely Parkinsons. Plan: SW to follow closely with Selina, further PT/OT and attempts at weaning off oxygen, and [facility] in [place] to determine [facility] vs return to [facility] at discharge likely this weekend. AYAD Leyva
--- NOTE | 2023-01-26 14:52 | PM.PN.1 ---
Subjective Subjective Interval history: CC: trouble breathing A little perkier today continued good UOP less crackles on exam however still needing supplemental O2 and desats easily with any exertion eating 50 of breakfast, encouraged IS use Exam Vital Signs (past 8 hours): - 01/26/23 07:00 01/26/23 08:08 01/26/23 08:46 Temperature 96.6 F L Pulse Rate 96 H 115 H Respiratory Rate 18 Blood Pressure 100/52 L Pulse Oximetry 93 97 98 Oxygen Delivery Method Nasal Cannula Oxygen Flow Rate 3 3 3 Fraction of Inspired Oxygen 94 Oxygen Delivery Method Nasal Cannula Oxygen Flow Rate 3 Narrative Exam Narrative: perky elder talking to granddaughter via video chat Const General: comfortable, well developed and frail appearing HENMT Head: normocephalic and atraumatic Eyes General: appearance normal, both eyes and all related structures Resp Other: minimal bibasilar crackles, moving air shallowly, no IS at elbow Cardio Other: regular rate, S1/S2, 2+ pittin [place] to [place] a bit better than yesterday GI Other: soft nontender nondistended active bowel sounds Neuro General: patient alert and patient awake Extrem Other: R 3rd and 4th toes are discolored and tender to range Objective Labs 01/24/23 09:10 01/26/23 05:18 Labs: Laboratory Results - last 24 hr 01/26/23 05:18 Potassium 3.3 L PFSH Medical History Fracture of femoral neck, left Neuropathy Surgical History History of total right hip arthroplasty Social History household members: none Smoking Status: Never smoker alcohol intake: current Assessment & Plan Assessment & Plan narrative: #Acute respiratory failure probably secondary to congestive heart failure #congestive heart failure diastolic and systolic, present on admission, acute on chronic continued diuresis with lasix 40 bid iv, progressing ok, no signs of infection echocardiogram obtained this admission grossly similar to july 2022 showing EF 20-25%. Although diastolic function could not be assessed signs of CHF were seen on Oct 2022 CXR. BNP now elevated, trending. Still requiring supplemental O2 4L which she does not use at baseline, continue to diurese I think she may be suitable for dc to SNF prior to going home to [facility] she is not in shape for rehab but does need some TLC - dc possible tomorrow #hypokalemia mild, continue repletion protocol #R toes pain possible fracture? These wer evident yesterday too will get XR today she is still able to ambulate short distances and transfer to commode for now #Atrial fibrillation continue home meds with xarelto #Depression Hx of psychosis in the past, seems stable, continue home medications and follow closely.? #Chronic back pain she takes tramadol intermittently.? Will hold for now and use Vicodin as needed.? Go back to home regimen when done.? #Hypertension trending and resume home regimen as able #History of reflux stable continue PPI.? Code status: full MDM: Mathieu Caldwell [phone] DVT prophylaxis on oral anticoagulation Xarelto will continue Disposition continue diuresis not off O2 yet maybe to SNF tomorrow Quality VTE Deep Vein Thrombosis/Pulmonary Embolism Present on Admission: No
--- NOTE | 2023-01-26 14:58 | DI.RAD.S_ITS ---
PROCEDURE: XR FOOT RT MIN 3V INDICATIONS: toe pain TECHNIQUE: 3 views of the foot were acquired. COMPARISON: [facility], CR, XR FOOT RT MIN 3V, 06/22/2021, 11:41. FINDINGS: Bones: No fractures or dislocations. No suspicious bony lesions. Generalized degenerative changes are seen including involving the Lisfranc joint. Plantar and Achilles calcaneal spurs are seen. Stable focal irregularities can be seen involving the 3rd and 4th metatarsal heads. Toe alignment abnormalities are seen. Soft tissues: No tibiotalar joint effusion. Achilles tendon appears normal. Calcification is noted of the distal arteries. This degree of calcification is typically seen in patients with a long-standing history of diabetes. Please correlate with a history of such. IMPRESSION: Generalized degenerative changes and toe alignment abnormalities are seen. If there is strong suspicion for developing osteomyelitis, please consider a dedicated MRI without and with contrast for further evaluation (assuming that there is no contraindication to MRI). Dictated by: Tip Steele M.D. on 01/26/2023 at 14:44 Approved by: Tip Steele M.D. on 01/26/2023 at 14:45
--- NOTE | 2023-01-26 15:20 | PT.IPTN ---
Current Diagnoses Heart failure, unspecified (01/24/23) Physical Therapy Treatment Note M2 PT-IP Current Condition Start: 01/25/23 16:37 Freq: NEEDED Status: Active Protocol: Document 01/25/23 16:37 DLM (Rec: 01/25/23 16:54 DLM [id number]) Physical Therapy Current Condition Current Condition Evaluation Date 01/25/23 Treatment Diagnosis CHF, impaired gait Onset Date 01/24/23 M3 PT-IP Subjective Start: 01/25/23 16:37 Freq: NEEDED Status: Active Protocol: Document 01/26/23 15:52 TS (Rec: 01/26/23 16:26 TS [id number]) Subjective Physical Therapy Visit Type Type Treatment Note Visit Start Time 15:20 Visit Stop Time 15:48 Total Visit Minutes 28 Number of KILN FIRER Visits 2 Physical Therapy Visit Comments Patient Comments Pt continues to report pain in her RLE with ambulation and no reports quang in backside laying in bed. Therapy Pain Assessment Pain When Pain Assessed At Rest Pain Present Pain Present Pain Reported Location Right Knee Pain Behaviors Facial Grimacing,Guarding, Holding Area,Wincing Pain Management Techniques Modification of Treatment,Re- positioning,Timing of Activity with Medications M4 PT-IP Mobility and Gait Start: 01/25/23 16:37 Freq: NEEDED Status: Active Protocol: Document 01/26/23 15:52 TS (Rec: 01/26/23 16:26 TS [id number]) PT-Bed Mobility Assessment Supine to Sit Supine to Sit Standby Assistance,Bedrails Sit to Supine Sit to Supine Standby Assistance Scooting Scooting to Edge of Bed Independent PT-Transfer Assessment Sit to and From Stand Sit to and from Stand Standby Assistance,Contact Guard Assistance,Minimal Assistance Equipment Transfer Assistive Device Gait Belt,Front Wheeled Walker Transfers Transfer Destination Chair Transfer Technique Stand Step Pivot Transfer Ability Level of Assist Contact Guard Assistance Comments Mobility Comments Pt found resting in bed on 4L O2, agreeable to PT session. C /O pain in RLE with mobility and at rest in backside. Supine to sit SBA with BUE support on bed for uprighting trunk. Sit to stand x1 no AD CGA progressed to Kristie for posterior leaning/not stable on feet. Sit to stand x1 with FWW SBA, demonstrates good carryover of sequencing of weight forward and BUE support pushing from bed. She ambulated 2x10' SBA, initially with RLE flat and progressed to RLE knee flexed and on forefoot due to pain. After 10 ' of gait she required CGA/ Kristie for ambulation due to pain in RLE and reports of feeling like her legs were giving out on her. Stand to sit required cues for bakc of legs touching bed and UE support on bed for slow eccentric control. She performed stand step pivot transfer to chair, again requiring cues for UE support on arms of chair for eccentric control and management of FWW . Pt was left in bedside chair with call light and tray nearby, chair alarm on, nursing notified. Gait Assessment Gait Gait Assistance Required: Standby Assistance,Contact Guard Assist,Minimum Assistance Distance (Feet) 20 Assistive Devices Assistive Device Gait Belt,Front Wheeled Walker Gait Deviations General Gait Pattern Antalgic,Festinating Factors Limiting Gait Function Factors Limiting Gait Function Decreased Activity Tolerance, Pain,Poor Balance Comments Gait Comments Pt ambulates initially with RLE flat and progresses up onto forefoot when pain increases behind her knee. She was SBA for first 10' progressing to CGA/Kristie for last 10' due to pain in her leg and fatigue. She had some SOB after ambulation requiring cues for PLB, SOB and pain improved. Stair Climbing Assessment Comments Stair Climbing Comments no stairs at her A.L apt PT-Balance Assessment Sitting Balance and Reactions Static Sitting Balance Ability Good Dynamic Sitting Balance Ability Good Standing Balance and Reactions Static Standing Balance Ability Fair Dynamic Standing Balance Ability Poor Device Used FWW M5 PT-IP Objective Assessments Start: 01/25/23 16:37 Freq: NEEDED Status: Active Protocol: Document 01/25/23 16:37 [facility] (Rec: 01/25/23 16:54 [facility] [id number]) Orientation Orientation/Cognition Level of Alertness Alert Orientation Name,Age,Birthday,Month,Year Language Function Ability Garbled Speech Safety Awareness Understands Safety Issues Memory Description Short Term Impaired Comments she knows she is in the hospital but can not give the name, she can remember name of facility where she lives, intermittently her speech is hard to understand but she can repeat it more clearly when asked Gross Range of Motion Upper Extremity ROM Assessment Within Functional Limits Lower Extremity ROM Assessment Within Functional Limits Strength Upper Extremity Strength Assessment Within Functional Limits Lower Extremity Strength Assessment Within Functional Limits Hip seated hip flexion 4+/5 Knee seated flex/ext 5/5 Ankle DF 5/5 Coordination Assessment Gross Coordination Gross Coordination Impaired Assessment Coordination Comments mild tremors Sensation Assessment Comments Sensation Comments hx neuropathy, no changes reported by pt Muscle Tone Muscle Tone WNL Yes Other Assessments Other Other Assessments noted right LE is longer than left M6 PT-IP Treatment Start: 01/25/23 16:37 Freq: NEEDED Status: Active Protocol: Document 01/26/23 15:52 TS (Rec: 01/26/23 16:26 TS [id number]) Physical Therapy Treatment Education Education Provided Safety Other Treatments Other Treatment Performed pt left up in recliner this visit with chair alarm in use and call light close M7 PT-IP Assessment and Plan Start: 01/25/23 16:37 Freq: NEEDED Status: Active Protocol: Document 01/26/23 15:52 TS (Rec: 01/26/23 16:26 TS [id number]) PT Summary Assessment and Plan Potential Rehabilitation Potential Good Status of Condition at Evaluation Evolving Summary Impairments Pain,Strength,Balance, Transfers,Gait,Activity Tolerance Assessment Summary Pt remains on O2, increased from 3.5L to 4L from morning session. She continues to c/o pain in her backside and the back of her RLE with mobility, progressively getting worse throughout session. She compensates for pain by walking on her R forefoot requiring her to make more effort in ambulation and decreases her balance, especially with turning in FWW . PT continues to recommend SNF to increase her activity tolerance and progress her gait. Goals Bed Mobility Goal Independent Transfer Goal Independent,Front Wheeled Walker Gait Goal Independent,Front Wheel Walker Gait Distance 50 feet Days to Meet Goals 5 Frequency of Treatment Frequency Of Treatment Twice a Day Treatment Plan Physical Therapy Treatment Plan Bed Mobility Training,Transfer Training,Gait Training, Therapeutic Exercise,Balance Retraining,Discharge Planning, Neuromuscular Re-ed Other Recommendations and Next Treatment Progress gait. Focus Recommendations To Nursing Amount of Assist Needed 1 Person Assist Discharge Recommendations PT Discharge Recommendations SNF Rehab Transportation Needs at Discharge Private Vehicle,Wheelchair/ Cabulance
[2023-01-26 19:00] VITALS: O2SAT 93
[2023-01-26 20:00] VITALS: BP 84/59; PULSE 122; RESP 19; TEMP 36.7; O2SAT 95
[2023-01-26] MEDS: OXYBUTYNIN 5 MG ER TAB PO (20:55)
[2023-01-26] MEDS: MIRTAZAPINE 15 MG TABLET 45 MG PO (20:55)
[2023-01-26] MEDS: DULOXETINE 30 MG CAPSULE PO (20:56)
[2023-01-26] MEDS: RIVAROXABAN 10 MG TABLET 20 MG PO (20:56)
[2023-01-26 22:24] VITALS: PULSE 125; O2SAT 99
[2023-01-27] VITALS (11 sets, daily range): BP systolic 88–99; BP diastolic 44–63; PULSE 86–117; RESP 16–18; TEMP 36.3–37.1; O2SAT 93–98; BMI 21.5
[2023-01-27] MEDS: FUROSEMIDE 40 MG/4 ML VIAL IV (02:44)
[2023-01-27] MEDS: HYDROCODONE/ACET 5/325 TABLET 1 TAB PO ×3 (02:51→21:10)
[2023-01-27 05:35] LABS: HEMOLYSIS < 15 (0-50); Potassium 3.9 mmol/L (3.4-5.1)
[2023-01-27] MEDS: LEVOTHYROXINE 50 MCG TABLET PO (05:37)
[2023-01-27] MEDS: LEVOTHYROXINE 100 MCG TABLET 200 MCG PO (05:37)
[2023-01-27] MEDS: PANTOPRAZOLE DR 20 MG TABLET PO (05:39)
[2023-01-27] MEDS: DULOXETINE 30 MG CAPSULE 60 MG PO (08:34)
[2023-01-27] MEDS: SERTRALINE 50 MG TABLET 150 MG PO (08:35)
--- NOTE | 2023-01-27 08:50 | PT.IPTN ---
Current Diagnoses Heart failure, unspecified (01/24/23) Physical Therapy Treatment Note M2 PT-IP Current Condition Start: 01/25/23 16:37 Freq: NEEDED Status: Active Protocol: Document 01/25/23 16:37 DLM (Rec: 01/25/23 16:54 DLM [id number]) Physical Therapy Current Condition Current Condition Evaluation Date 01/25/23 Treatment Diagnosis CHF, impaired gait Onset Date 01/24/23 M3 PT-IP Subjective Start: 01/25/23 16:37 Freq: NEEDED Status: Active Protocol: Document 01/27/23 10:24 TS (Rec: 01/27/23 11:16 TS [id number]) Subjective Physical Therapy Visit Type Type Treatment Note Visit Start Time 08:50 Visit Stop Time 09:37 Total Visit Minutes 47 Notes Vitals:Spo2 95% 5L BP: supine 87/56, Sitting EOB 100/67, Supine after mobility 90/64. Number of CHEMIST STEROIDS Visits 3 Physical Therapy Visit Comments Patient Comments Pt reports she continues to have back pain that increases with mobility. Patient Goals be strong enough to return to her apt at [facility] Pain Assessment Pain When Pain Assessed During Mobility Pain Present Pain Present Pain Reported Location Back Description Aching,Chronic Pain Behaviors Facial Grimacing,Holding Area, Wincing Pain Management Techniques Modification of Treatment,Re- positioning,Timing of Activity with Medications bilateral lower legs Description Aching,Chronic,Tender, Throbbing Pain Behaviors Facial Grimacing,Guarding, Restlessness,Wincing Pain Management Techniques Modification of Treatment,Re- positioning,Timing of Activity with Medications M4 PT-IP Mobility and Gait Start: 01/25/23 16:37 Freq: NEEDED Status: Active Protocol: Document 01/27/23 10:24 TS (Rec: 01/27/23 11:16 TS [id number]) PT-Bed Mobility Assessment Rolling Type of Rolling Bilateral Level of Assist Standby Assistance Supine to Sit Supine to Sit Standby Assistance,Bedrails Sit to Supine Sit to Supine Standby Assistance Scooting Scooting to Edge of Bed Standby Assistance Scooting Up and Down in Bed Moderate Assistance PT-Transfer Assessment Sit to and From Stand Sit to and from Stand Standby Assistance,Contact Guard Assistance,Minimal Assistance Equipment Transfer Assistive Device Gait Belt,Front Wheeled Walker Transfers Transfer Destination Bedside Commode Transfer Technique Stand Step Pivot Transfer Ability Level of Assist Minimal Assistance Comments Mobility Comments Pt found asleep in bed, alert when awakened, agreeable to PT session. Pt is on 5L of O2, difficult to get reading but was shown at 95%. She performed ankle pumps x5 and heel slides x5, reports increase in back pain with heel slides on LLE. Supine to sit with HOB 25D SBA but with increased effort and pain from previous session, BUE support on bed and handrail assist. Pt performed sit to stand x1 from EOB with Kristie and required cues for BUE support on FWW once standing. She reported needing to use commode, she transferred with Kristie to bed side commode requiring cues for FWW management and steps, labored and with SOB, provided cues for PLB, symptoms improved. She required assist for donning and doffing brief in standing with FWW. She performed sit to stand from commode SBA with increased effort, demonstrated good carryover of using BUE support on arms of commode. She ambulated ~6' SBA/CGA, continuing to walk on RLE forefoot. When provided cues for RLE flat she required less effort to ambulate and more normal gait. Stand to sit CGA required cues to reach back with BUE for eccentric control . Pt reported feeling dizzy/ lightheaded and asked to go back to bed. Sit to supine SBA with increased effort for LE' s bakc into bed from previous session. She required ModA x2 to scoot up to HOB. She was left in bed, call light nearby , SPECIALTY THERAPIST notified of purewick needing replacement. Gait Assessment Gait Gait Assistance Required: Standby Assistance,Contact Guard Assist,Minimum Assistance Distance (Feet) 6 Assistive Devices Assistive Device Gait Belt,Front Wheeled Walker Gait Deviations General Gait Pattern Antalgic,Festinating Factors Limiting Gait Function Factors Limiting Gait Function Decreased Activity Tolerance, Pain,Poor Balance Comments Gait Comments Pt ambulated ~6' in room initially requiring Kristie progresssing to CGA/SBA. She continues to walk on RLE forefoot, reporting increasing pain behind knee and LE's feeling weak. She had difficulty taking functional steps walking on RLE forefoot, provided cues for RLE flat, she demonstrated less effort to complete steps back to bed. Stair Climbing Assessment Comments Stair Climbing Comments no stairs at her [facility] apt PT-Balance Assessment Sitting Balance and Reactions Static Sitting Balance Ability Good Dynamic Sitting Balance Ability Good Standing Balance and Reactions Static Standing Balance Ability Fair Dynamic Standing Balance Ability Poor Device Used FWW Comments Other Balance Tests/Deviations/Treatment Pt sits EOB with BUE support : and maintains good midline with no posterior leaning. In standing she uses heavy BUE on FWW compensating for weak/ painful LE's. M5 PT-IP Objective Assessments Start: 01/25/23 16:37 Freq: NEEDED Status: Active Protocol: Document 01/25/23 16:37 DLM (Rec: 01/25/23 16:54 DLM [id number]) Orientation Orientation/Cognition Level of Alertness Alert Orientation Name,Age,Birthday,Month,Year Language Function Ability Garbled Speech Safety Awareness Understands Safety Issues Memory Description Short Term Impaired Comments she knows she is in the hospital but can not give the name, she can remember name of facility where she lives, intermittently her speech is hard to understand but she can repeat it more clearly when asked Gross Range of Motion Upper Extremity ROM Assessment Within Functional Limits Lower Extremity ROM Assessment Within Functional Limits Strength Upper Extremity Strength Assessment Within Functional Limits Lower Extremity Strength Assessment Within Functional Limits Hip seated hip flexion 4+/5 Knee seated flex/ext 5/5 Ankle DF 5/5 Coordination Assessment Gross Coordination Gross Coordination Impaired Assessment Coordination Comments mild tremors Sensation Assessment Comments Sensation Comments hx neuropathy, no changes reported by pt Muscle Tone Muscle Tone WNL Yes Other Assessments Other Other Assessments noted right LE is longer than left M6 PT-IP Treatment Start: 01/25/23 16:37 Freq: NEEDED Status: Active Protocol: Document 01/27/23 10:24 TS (Rec: 01/27/23 11:16 [id number]) Physical Therapy Treatment Education Education Provided Safety M7 PT-IP Assessment and Plan Start: 01/25/23 16:37 Freq: NEEDED Status: Active Protocol: Document 01/27/23 10:24 TS (Rec: 01/27/23 11:16 TS [id number]) PT Summary Assessment and Plan Potential Rehabilitation Potential Good Status of Condition at Evaluation Evolving Summary Impairments Pain,Strength,Balance, Transfers,Gait,Activity Tolerance Assessment Summary Pt on increased O2 this session from 3-3.5L from yesterday up to 5L today. Throughout session she demonstrates increased effort from previous session with therapist, her reports of increased back pain could be limiting her mobility. She continues to ambulate on RLE forefoot making it more difficult for her to take functional steps and pivoting with FWW but reports it helps with pain. Provided her with cues for RLE flat and she demonstrated more normal/ functional and safe gait. PT continues to recommend SNF to improve her activity tolerance , a more functional and safe gait and transfers. Goals Bed Mobility Goal Independent Transfer Goal Independent,Front Wheeled Walker Gait Goal Independent,Front Wheel Walker Gait Distance 50 feet Days to Meet Goals 5 Frequency of Treatment Frequency Of Treatment Twice a Day Treatment Plan Physical Therapy Treatment Plan Bed Mobility Training,Transfer Training,Gait Training, Therapeutic Exercise,Balance Retraining,Discharge Planning, Neuromuscular Re-ed Other Recommendations and Next Treatment Progress gait. Focus Recommendations To Nursing Amount of Assist Needed 1 Person Assist Discharge Recommendations PT Discharge Recommendations SNF Rehab Transportation Needs at Discharge Private Vehicle,Wheelchair/ Cabulance
--- NOTE | 2023-01-27 09:48 | DI.RAD.S_ITS ---
PROCEDURE: XR CHEST 1V INDICATIONS: hypoxia TECHNIQUE: One view of the chest was acquired. COMPARISON: [facility], CR, XR CHEST 1V, 10/15/2022, 0:04. [facility], CR, XR CHEST 1V, 01/24/2023, 9:08. FINDINGS: Surgical changes and devices: None. Lungs and pleura: An incomplete inspiratory result is noted, causing a crowded appearance to the lung markings. No focal infiltrates are seen. No pneumothorax or significant pleural effusions are seen. Mild interstitial prominence can be seen. Mediastinum: Mediastinal contours appear normal. Heart size is moderately enlarged. Bones and chest wall: No suspicious bony lesions. Overlying soft tissues appear unremarkable. IMPRESSION: Mild interstitial prominence and moderate cardiomegaly, which are consistent with continued CHF. Dictated by: Tip Steele M.D. on 01/27/2023 at 10:07 Approved by: Tip Steele M.D. on 01/27/2023 at 10:10
--- NOTE | 2023-01-27 09:50 | PM.PN.1 ---
Subjective Subjective Date Patient Seen: 01/27/23 Time Patient Seen: 09:50 Interval history: Patient now on 5 L nasal cannula oxygen. This is a slight increase over yesterday Up with physical therapy moving some Somewhat decreased urine output (compared to previous). Electrolytes (potassium) better this morning. Somewhat hypotensive although that seems to be her baseline looking back in the hospital record including into October Patient herself sitting up in bed looks actually much better than she does on paper. She has no complaints. Denies any difficulty breathing denies any sense of palpitations chest pain anything like that Has not really been up out of bed except with physical therapy Exam Vital Signs (past 8 hours): - 01/27/23 08:45 Temperature 97.4 F L Pulse Rate 111 H Respiratory Rate 18 Blood Pressure 88/60 L Pulse Oximetry 98 Oxygen Flow Rate 5 Fraction of Inspired Oxygen 40 SaO2/FiO2 Ratio 247 Oxygen Delivery Method Nasal Cannula Oxygen Flow Rate 5 Objective Labs 01/24/23 09:10 01/27/23 05:05 Labs: Laboratory Results - last 24 hr 01/27/23 05:05 Potassium 3.9 PFSH Medical History Fracture of femoral neck, left Neuropathy Surgical History History of total right hip arthroplasty Social History household members: none Smoking Status: Never smoker alcohol intake: current Assessment & Plan Assessment & Plan narrative: 1. Acute on chronic congestive heart failure with reduced ejection fraction-I think patient does need probably continued diuresis although I think we should slow down some given the modest hypotension and tachycardia. Also her renal function had bumped when last checked and that needs to be checked again this morning in my opinion. Will switch her to oral furosemide and continue with potassium replacement. Plan to recheck BNP tomorrow as well. I think given her increased oxygen requirement and lack of improvement given pretty vigorous diuresis repeat chest x-ray would also be appropriate to reassess her lung gurrola as well as the small but bilateral pleural effusions. She is not ready for discharge at this time in my opinion 2. Electrolytes/renal-patient's potassium is back to normal this morning. However I think she needs to have her renal function rechecked given the bump in creatinine noticed previously. I am also reducing her diuresis as above. Plan to recheck both of these things again tomorrow as well. If creatinine has significantly increased may need to further reduce diuretic therapy. Patient's renal function actually appears to be stable improved over the last couple numbers but not back to baseline (although do not have a recent baseline given that labs apparently been done at an outside facility most recently). Okay to continue with somewhat lower dose oral diuretics 3. Atrial fibrillation-patient persists with somewhat of a rapid ventricular response to her chronic atrial fibrillation. I think she needs some sort a rate control agent but is modestly hypotensive as noted above. I am going to cautiously add digoxin start with a low single dose IV and plan to monitor this. Patient's renal function this morning is okay. Okay to give her single dose of digoxin plan to recheck renal function. If renal function declines further digoxin may not be the best choice for rate control but if remained stable and or improves then this maybe reasonable choice, and would anticipate probably 125 mcg daily with close monitoring of both digit levels, heart rates, and renal function 4. Toe pain-no evidence of fracture on imaging. Continue to work with physical therapy to increase ambulation etcetera 5. Hypertension-patient off of all of her antihypertensives given modest hypotension. This includes metoprolol and lisinopril. Given blood pressures do not believe these can be restarted this time 6. Depression-patient on both sertraline as well as duloxetine. In my opinion not appropriate to be on high doses of both these medications (both SSRIs). I am going to discontinue the sertraline. Overall patient is stable but has persistent ongoing oxygen requirement and various abnormalities as above that need ongoing careful monitoring. She is not medically appropriate for discharge to residential any other sort of lower care facility at this time. I anticipate she will probably require hospitalization for another 24-48 hours at a minimum, depending on clinical status and response to therapies as above. COVID-19 Result date/Date tested (Pos, Neg/Pending): 01/24/23 Quality VTE Deep Vein Thrombosis/Pulmonary Embolism Present on Admission: No
[2023-01-27 09:55] LABS: BUN Creatinine Ratio 19.6 (6-22); Blood Urea Nitrogen 31 mg/dL (7-17); Calcium 8.4 mg/dL (8.4-10.2); Carbon Dioxide 25 mmol/L (22-32); Chloride 105 mmol/L (98-107); Estimated Glomerular Filt Rate 34 mL/min (>60); Glucose 79 mg/dL (80-110); HEMOLYSIS < 15 (0-50); Sodium 137 mmol/L (137-145)
[2023-01-27] MEDS: DIGOXIN 500 MCG/2 ML AMPUL 250 MCG IV (10:21)
[2023-01-27] MEDS: FUROSEMIDE 40 MG TABLET PO (10:21)
[2023-01-27 10:27] LABS: TSH w/ Reflex to FT4 2.38 uIU/mL (0.47-4.68)
--- NOTE | 2023-01-27 10:37 | CM.DPNOTE ---
Discharge Planning Note: Met with patient who just finished working with KYLE Jayy who states she is actually a little weaker than yesterday. Note that her O2 has increased to [address] Rosenthal in to see patient, see note. Notified Cesia at [facility] that patient will be here 24-48 hours more until discharge. Plan: Stay in touch with [facility] re dc plan. Follow for needs. When medically cleared dc to [facility]. Inez Hernandez RN/DCP
--- NOTE | 2023-01-27 12:15 | PT.IPTN ---
Current Diagnoses Heart failure, unspecified (01/24/23) Physical Therapy Treatment Note M2 PT-IP Current Condition Start: 01/25/23 16:37 Freq: NEEDED Status: Active Protocol: Document 01/25/23 16:37 DLM (Rec: 01/25/23 16:54 DLM [id number]) Physical Therapy Current Condition Current Condition Evaluation Date 01/25/23 Treatment Diagnosis CHF, impaired gait Onset Date 01/24/23 M3 PT-IP Subjective Start: 01/25/23 16:37 Freq: NEEDED Status: Active Protocol: Document 01/27/23 13:48 TS (Rec: 01/27/23 14:29 TS [id number]) Subjective Physical Therapy Visit Type Type Treatment Note Visit Start Time 12:15 Visit Stop Time 12:55 Total Visit Minutes 40 Notes BP: Supine 88/87 Physical Therapy Visit Comments Patient Comments Pt up and alert in bed while eating lunch. She continues to report increase in back pain with mobility. Therapy Pain Assessment Pain When Pain Assessed At Rest Pain Present Pain Present Pain Reported Location Back Description Aching,Chronic Pain Behaviors Facial Grimacing,Holding Area, Wincing Pain Management Techniques Modification of Treatment,Re- positioning,Timing of Activity with Medications M4 PT-IP Mobility and Gait Start: 01/25/23 16:37 Freq: NEEDED Status: Active Protocol: Document 01/27/23 13:48 TS (Rec: 01/27/23 14:29 TS [id number]) PT-Bed Mobility Assessment Supine to Sit Supine to Sit Standby Assistance,Bedrails Sit to Supine Sit to Supine Standby Assistance Scooting Scooting to Edge of Bed Standby Assistance PT-Transfer Assessment Sit to and From Stand Sit to and from Stand Standby Assistance,Contact Guard Assistance,Minimal Assistance Equipment Transfer Assistive Device Gait Belt,Front Wheeled Walker Transfers Transfer Destination Bedside Commode Transfer Technique Stand Step Pivot Transfer Ability Level of Assist Standby Assistance,Contact Guard Assistance Comments Mobility Comments Pt found up and alert in bed eating lunch, O2 @5L, agreeable to PT session. She sat with HOB elevated and doffed her IPC device maintaining good sitting balance with no posterior lean . She performed supine to sit SBA with less effort compared to morning session, denied any back pain or dizziness. She sat EOB SBA initially with BUE support, progressed to no UE support with cues for core act . She performed sit to stand x1 from elevated bed w/FWW and Kristie for posterior lean and reporting she felt like she was going to fall. She ambulated ~12', continuing to walk on R forefoot and difficulty taking functional steps, provided cues for foot flat and stability improved. She requires Kristie for turning/ pivoting FWW to ambulate back to bed, again continues to go up on R forefoot requiring VC to correct. Sitting EOB she has labored breathing and requires cues for PLB, symptoms improved. Therapist demonstrated step to gait with FWW for improved ambulation and for a more normal and functional gait. She ambulated ~12' again with cues for step to gait, balance and tolerance to ambulation improved. She transferred to commode CGA/SBA requiring cues for management of FWW and sequencing of steps. She performed stand step pivot transfer from commode to bed side chair requiring Kristie for posterior lean in standing and for tipping of FWW. She sat in bed side chair requiring cues for UE support on arms of chair for eccentric control. Pt was left in chair, call light nearby, chair alarm and nursing staff notified. Gait Assessment Gait Gait Assistance Required: Standby Assistance,Contact Guard Assist,Minimum Assistance Distance (Feet) 6 Assistive Devices Assistive Device Gait Belt,Front Wheeled Walker Gait Deviations General Gait Pattern Antalgic,Festinating Factors Limiting Gait Function Factors Limiting Gait Function Decreased Activity Tolerance, Pain,Poor Balance Comments Gait Comments She ambulated ~12', continuing to walk on R forefoot and difficulty taking functional steps, provided cues for foot flat and stability improved. She requires Kristie for turning/ pivoting FWW to ambulate back to bed, again continues to go up on R forefoot requiring VC to correct. Therapist demonstrated step to gait with FWW for a more normal and functional gait. She ambulated ~12' again with cues for step to gait, balance and tolerance to ambulation improved. Stair Climbing Assessment Comments Stair Climbing Comments no stairs at her [facility] apt PT-Balance Assessment Sitting Balance and Reactions Static Sitting Balance Ability Good Dynamic Sitting Balance Ability Good Standing Balance and Reactions Static Standing Balance Ability Fair Dynamic Standing Balance Ability Poor Device Used FWW M5 PT-IP Objective Assessments Start: 01/25/23 16:37 Freq: NEEDED Status: Active Protocol: Document 01/25/23 16:37 DLM (Rec: 01/25/23 16:54 DL [id number]) Orientation Orientation/Cognition Level of Alertness Alert Orientation Name,Age,Birthday,Month,Year Language Function Ability Garbled Speech Safety Awareness Understands Safety Issues Memory Description Short Term Impaired Comments she knows she is in the hospital but can not give the name, she can remember name of facility where she lives, intermittently her speech is hard to understand but she can repeat it more clearly when asked Gross Range of Motion Upper Extremity ROM Assessment Within Functional Limits Lower Extremity ROM Assessment Within Functional Limits Strength Upper Extremity Strength Assessment Within Functional Limits Lower Extremity Strength Assessment Within Functional Limits Hip seated hip flexion 4+/5 Knee seated flex/ext 5/5 Ankle DF 5/5 Coordination Assessment Gross Coordination Gross Coordination Impaired Assessment Coordination Comments mild tremors Sensation Assessment Comments Sensation Comments hx neuropathy, no changes reported by pt Muscle Tone Muscle Tone WNL Yes Other Assessments Other Other Assessments noted right LE is longer than left M6 PT-IP Treatment Start: 01/25/23 16:37 Freq: NEEDED Status: Active Protocol: Document 01/27/23 13:48 TS (Rec: 01/27/23 14:29 TS [id number]) Physical Therapy Treatment Education Education Provided Safety Other Treatments Other Treatment Performed pt left up in recliner this visit with chair alarm in use and call light close M7 PT-IP Assessment and Plan Start: 01/25/23 16:37 Freq: NEEDED Status: Active Protocol: Document 01/27/23 13:48 TS (Rec: 01/27/23 14:29 TS [id number]) PT Summary Assessment and Plan Potential Rehabilitation Potential Good Status of Condition at Evaluation Evolving Summary Impairments Pain,Strength,Balance, Transfers,Gait,Activity Tolerance Assessment Summary Pt continues to be on 5L of O2 , difficult to get accurate Spo2 reading. Her BP remains low 88/57 sitting EOB. She did deny back pain with bed mobility and RLE pain behind knee during ambulation this session. She continues to walk on R forefoot causing her difficulty in taking fucntional steps and progressing her gait. Therapist provided demonstration of step to gait and pt did improve gait pattern on second attempt, demonstrating decreased effort for steps. Turning and pivoting in FWW remains most difficult for her, she becomes off balance and is unsafe even when provided cues. PT continues to recommend SNF to improve activity tolerance, AD training and functional mobility. Goals Bed Mobility Goal Independent Transfer Goal Independent,Front Wheeled Walker Gait Goal Independent,Front Wheel Walker Gait Distance 50 feet Days to Meet Goals 5 Frequency of Treatment Frequency Of Treatment Twice a Day Treatment Plan Physical Therapy Treatment Plan Bed Mobility Training,Transfer Training,Gait Training, Therapeutic Exercise,Balance Retraining,Discharge Planning, Neuromuscular Re-ed Other Recommendations and Next Treatment Progress gait, assess Focus carryover of gait pattern, back and leg pain. Recommendations To Nursing Amount of Assist Needed 1 Person Assist Discharge Recommendations PT Discharge Recommendations SNF Rehab Transportation Needs at Discharge Private Vehicle,Wheelchair/ Cabulance
[2023-01-27] MEDS: POTASSIUM CHLORIDE 20 MEQ TAB PO (17:05)
[2023-01-27] MEDS: MIRTAZAPINE 15 MG TABLET 45 MG PO (21:10)
[2023-01-27] MEDS: OXYBUTYNIN 5 MG ER TAB PO (21:11)
[2023-01-27] MEDS: DULOXETINE 30 MG CAPSULE PO (21:11)
[2023-01-27] MEDS: RIVAROXABAN 10 MG TABLET 20 MG PO (21:11)
[2023-01-28 04:47] VITALS: BP 128/86; PULSE 96; RESP 21; TEMP 35.7; O2SAT 96
[2023-01-28] MEDS: HYDROCODONE/ACET 5/325 TABLET 1 TAB PO ×3 (05:44→20:56)
[2023-01-28] MEDS: LEVOTHYROXINE 100 MCG TABLET 200 MCG PO (05:44)
[2023-01-28] MEDS: LEVOTHYROXINE 50 MCG TABLET PO (05:44)
[2023-01-28 05:45] LABS: BUN Creatinine Ratio 20.1 (6-22); Blood Urea Nitrogen 28 mg/dL (7-17); Calcium 8.5 mg/dL (8.4-10.2); Carbon Dioxide 27 mmol/L (22-32); Chloride 105 mmol/L (98-107); Estimated Glomerular Filt Rate 40 mL/min (>60); Glucose 76 mg/dL (80-110); HEMOLYSIS < 15 (0-50); Magnesium 1.6 mg/dL (1.6-2.3); Sodium 138 mmol/L (137-145)
[2023-01-28 05:51] LABS: NT-proBNP (BNP-Adult 18+) 19000 pg/mL (<450)
[2023-01-28] MEDS: PANTOPRAZOLE DR 20 MG TABLET PO (07:08)
[2023-01-28 07:38] VITALS: BP 120/70; PULSE 90; RESP 18; TEMP 36.4; O2SAT 97
[2023-01-28] MEDS: POTASSIUM CHLORIDE 20 MEQ TAB PO ×2 (08:45→16:18)
[2023-01-28] MEDS: FUROSEMIDE 40 MG TABLET PO (08:45)
[2023-01-28] MEDS: DOCUSATE 100 MG CAPSULE PO ×2 (08:45→20:56)
[2023-01-28] MEDS: DULOXETINE 30 MG CAPSULE 60 MG PO (08:45)
--- NOTE | 2023-01-28 09:34 | P.PN_ITS ---
Subjective Subjective Date Patient Seen: 01/28/23 Time Patient Seen: 09:34 Interval history: Patient dosing often on this morning. No real complaints She is back on room air without need for oxygen supplementation Heart rate continues to be between about 90 and 110 Blood pressure seems improved in the 120s at times least as of early this morning Renal function slightly improved on lab work also a significant improvement in her BNP Chest x-ray done yesterday showed I think resolution of her admittedly very small previous pleural effusions Exam Vital Signs (past 8 hours): - 01/28/23 04:47 01/28/23 07:38 Temperature 96.2 F L 97.6 F Pulse Rate 96 H 90 Respiratory Rate 21 18 Blood Pressure 128/86 120/70 Pulse Oximetry 96 97 Oxygen Flow Rate 0 0 Fraction of Inspired Oxygen 21 SaO2/FiO2 Ratio 461 Oxygen Delivery Method Room Air Oxygen Flow Rate 0 Objective Labs 01/24/23 09:10 01/28/23 04:54 Labs: Laboratory Results - last 24 hr 01/27/23 01/27/23 01/28/23 05:05 05:05 04:54 Sodium 137 138 Potassium 4.0 4.0 Chloride 105 105 Carbon Dioxide 25 27 BUN 31 H 28 H Creatinine 1.58 H 1.39 H Estimated GFR 34 L 40 L BUN/Creatinine Ratio 19.6 20.1 Glucose 79 L 76 L Calcium 8.4 8.5 Magnesium 1.6 NT-Pro-B Natriuret Pep TSH 2.38 01/28/23 04:54 Sodium Potassium Chloride Carbon Dioxide BUN Creatinine Estimated GFR BUN/Creatinine Ratio Glucose Calcium Magnesium NT-Pro-B Natriuret Pep 87608 H TSH PFSH Medical History Fracture of femoral neck, left Neuropathy Surgical History History of total right hip arthroplasty Social History household members: none Smoking Status: Never smoker alcohol intake: current Assessment & Plan Assessment & Plan narrative: 1. Acute on chronic congestive heart failure with reduced ejection fraction- patient appears improved now back on room air without the need for oxygen supplementation. BNP probably approaching her baseline. Renal function still slightly abnormal but improved. I would continue with current level of furosemide. 2. Electrolytes/renal-renal function slightly improved with GFR of 40 this morning. Electrolytes okay with potassium of 4.0. I think with current furos emide dose current potassium supplementation is appropriate. Would continue with current therapies without change but monitor carefully in the outpatient setting assuming she is able to be discharged in the next 24 hours or so 3. Atrial fibrillation-I think given improvement in renal function would be safe to put her on low-dose digoxin at 125 mcg every other day. I would give her a dose today and then repeat that again on January 30 4. Toe pain-no evidence of fracture on imaging. Continue to work with physical therapy to increase ambulation etcetera 5. Hypertension-patient remains off all of her antihypertensives but blood pressure appears to be somewhat better probably an indication of her improved overall cardiovascular status. Continue to monitor and reinstitute probably an GENESIS inhibitor if she tolerates it first, assuming she remains on digoxin for rate control of her atrial fibrillation 6. Depression-patient will continue off sertraline, but remains on duloxetine at relatively high dose Patient appears to be much improved over where she was at this time yesterday. She is probably ready for discharge in the next 24 hours and perhaps she can be discharged back to her assisted living facility rather than to nursing home, depending on her functional ability with skilled therapies today. COVID-19 Result date/Date tested (Pos, Neg/Pending): 01/24/23 Quality VTE Deep Vein Thrombosis/Pulmonary Embolism Present on Admission: No
[2023-01-28 16:18] VITALS: BP 100/66; PULSE 120; RESP 19; TEMP 36.6; O2SAT 97
[2023-01-28] MEDS: DIGOXIN 0.125 MG TABLET PO (16:18)
[2023-01-28 17:39] VITALS: O2SAT 96
--- NOTE | 2023-01-28 18:43 | PC.NURSE ---
pt confused at times with STML alarmed but continues to try and get oob- afib rvr rate 120 started dig po. medicated for chronic back pain with 1 vicodin po now sleeping on and off.
[2023-01-28 19:00] VITALS: O2SAT 94
[2023-01-28 20:00] VITALS: BP 101/63; PULSE 104; RESP 24; TEMP 37.1; O2SAT 94
[2023-01-28] MEDS: MIRTAZAPINE 15 MG TABLET 45 MG PO (20:56)
[2023-01-28] MEDS: DULOXETINE 30 MG CAPSULE PO (20:56)
[2023-01-28] MEDS: OXYBUTYNIN 5 MG ER TAB PO (20:56)
[2023-01-28] MEDS: RIVAROXABAN 10 MG TABLET 20 MG PO (20:56)
[2023-01-29] MEDS: LEVOTHYROXINE 100 MCG TABLET 200 MCG PO (05:39)
[2023-01-29] MEDS: LEVOTHYROXINE 50 MCG TABLET PO (05:39)
[2023-01-29] MEDS: HYDROCODONE/ACET 5/325 TABLET 1 TAB PO ×2 (05:39→10:26)
[2023-01-29 07:00] VITALS: O2SAT 94
[2023-01-29] MEDS: PANTOPRAZOLE DR 20 MG TABLET PO (08:15)
[2023-01-29] MEDS: DULOXETINE 30 MG CAPSULE 60 MG PO (08:18)
[2023-01-29] MEDS: POTASSIUM CHLORIDE 20 MEQ TAB PO (08:18)
[2023-01-29] MEDS: FUROSEMIDE 40 MG TABLET PO (08:18)
[2023-01-29] MEDS: DOCUSATE 100 MG CAPSULE PO (08:18)
--- NOTE | 2023-01-29 08:40 | PT.IPTN ---
Current Diagnoses Heart failure, unspecified (01/24/23) Physical Therapy Treatment Note M2 PT-IP Current Condition Start: 01/25/23 16:37 Freq: NEEDED Status: Active Protocol: Document 01/25/23 16:37 DLM (Rec: 01/25/23 16:54 DLM [id number]) Physical Therapy Current Condition Current Condition Evaluation Date 01/25/23 Treatment Diagnosis CHF, impaired gait Onset Date 01/24/23 M3 PT-IP Subjective Start: 01/25/23 16:37 Freq: NEEDED Status: Active Protocol: Document 01/29/23 09:36 TS (Rec: 01/29/23 10:24 TS [id number]) Subjective Physical Therapy Visit Type Type Treatment Note Visit Start Time 08:40 Visit Stop Time 09:25 Total Visit Minutes 45 Notes Vitals: Supine BP 98/66 HR 72, BP Sitting EOB 91/68 HR 78, After ambulation BP 120/74 HR 130, Spo2 mid to high 90's throughout session. Physical Therapy Visit Comments Patient Comments Pt found resting in bed, reports feeling much better and back pain is not as severe . Pt agreeable to PT session. Therapy Pain Assessment Pain When Pain Assessed During Weight Bearing Pain Present Pain Present Pain Reported Location Back Pain Management Techniques Modification of Treatment, Timing of Activity with Medications M4 PT-IP Mobility and Gait Start: 01/25/23 16:37 Freq: NEEDED Status: Active Protocol: Document 01/29/23 09:36 TS (Rec: 01/29/23 10:24 TS [id number]) PT-Bed Mobility Assessment Supine to Sit Supine to Sit Standby Assistance,Bedrails Scooting Scooting to Edge of Bed Standby Assistance PT-Transfer Assessment Sit to and From Stand Sit to and from Stand Standby Assistance,Contact Guard Assistance,Minimal Assistance Equipment Transfer Assistive Device Gait Belt,Front Wheeled Walker Comments Mobility Comments Supine to sit HOB 45D BUE support on bed for uprighting trunk. Scooted to EOB SBA with BUE support maintaining good midline with no retropulsion, porvided cues for feet flat. She performed sit to stand x1 SBA with increased effort with BUE support puhsing from bed. She ambulated ~5' SBA/CGA walking on RLE forefoot and narrow base of support before reporting needing to use bed side commode. She required assist doffing/donning brief but performed pericare on own. Sit to stand from commode she required Kristie due to retropulsion and pulling back on FWW. She ambulated to door and back to bedside chair ~25' again walking on forefoot of RLE and with NBOS making her unsteady on her feet. When provided with repetitive cues for RLE flat and step to gait she improves her balance in FWW and decreases her effort in ambulation. Pt became fatigued, c/o of dizziness and axious requiring to sit in bedside chair. She was left in bedside chair with call light nearby, chair alarm on, son in room, GERIATRIC CARE MANAGER notified. Gait Assessment Gait Gait Assistance Required: Standby Assistance,Contact Guard Assist,Minimum Assistance Distance (Feet) 35 Assistive Devices Assistive Device Gait Belt,Front Wheeled Walker Gait Deviations General Gait Pattern Antalgic,Festinating Factors Limiting Gait Function Factors Limiting Gait Function Decreased Activity Tolerance, Pain,Poor Balance Comments Gait Comments See mobility comments. Stair Climbing Assessment Comments Stair Climbing Comments no stairs at her A.L apt PT-Balance Assessment Sitting Balance and Reactions Static Sitting Balance Ability Good Dynamic Sitting Balance Ability Good Standing Balance and Reactions Static Standing Balance Ability Fair Dynamic Standing Balance Ability Poor Device Used FWW Comments Other Balance Tests/Deviations/Treatment Pt maintains good sitting : balance with no UE support. Her dynamic balance has imporved with peforming pericare for herself while on commode. In standing she heavily offloads weight into her arms to hold herself up due to standing on RLE toes, some flexed posture. M5 PT-IP Objective Assessments Start: 01/25/23 16:37 Freq: NEEDED Status: Active Protocol: Document 01/25/23 16:37 DL (Rec: 01/25/23 16:54 DL [id number]) Orientation Orientation/Cognition Level of Alertness Alert Orientation Name,Age,Birthday,Month,Year Language Function Ability Garbled Speech Safety Awareness Understands Safety Issues Memory Description Short Term Impaired Comments she knows she is in the hospital but can not give the name, she can remember name of facility where she lives, intermittently her speech is hard to understand but she can repeat it more clearly when asked Gross Range of Motion Upper Extremity ROM Assessment Within Functional Limits Lower Extremity ROM Assessment Within Functional Limits Strength Upper Extremity Strength Assessment Within Functional Limits Lower Extremity Strength Assessment Within Functional Limits Hip seated hip flexion 4+/5 Knee seated flex/ext 5/5 Ankle DF 5/5 Coordination Assessment Gross Coordination Gross Coordination Impaired Assessment Coordination Comments mild tremors Sensation Assessment Comments Sensation Comments hx neuropathy, no changes reported by pt Muscle Tone Muscle Tone WNL Yes Other Assessments Other Other Assessments noted right LE is longer than left M6 PT-IP Treatment Start: 01/25/23 16:37 Freq: NEEDED Status: Active Protocol: Document 01/29/23 09:36 TS (Rec: 01/29/23 10:24 TS [id number]) Physical Therapy Treatment Education Education Provided Safety Other Treatments Other Treatment Performed pt left up in recliner this visit with chair alarm in use and call light close M7 PT-IP Assessment and Plan Start: 01/25/23 16:37 Freq: NEEDED Status: Active Protocol: Document 01/29/23 09:36 TS (Rec: 01/29/23 10:24 TS [id number]) PT Summary Assessment and Plan Potential Rehabilitation Potential Good Status of Condition at Evaluation Evolving Summary Impairments Pain,Strength,Balance, Transfers,Gait,Activity Tolerance Assessment Summary Pt appears today to be feeling much better, she is on RA now with Spo2 remaining in mid to high 90's throughout session. She does c/o some dizziness with ambulation today requiring rest breaks. She is SBA for bed mobility, SBA/CGA for sit to stand x2 Kristie for posterior lean and pulling on FWW x1. Her gait remains unsteady walking on RLE forefoot and with a NBOS and slight scissor gait. When provided with consistent/ repetitive cues for feet flat, step to gait and for FWW management she does improve her balance and ambulates with decreased effort. Son entered room at end of session, he provided information on RLE. She has been walking on RLE forefoot for a several months and they tried orthotic but did not work. He also reports she has a neurological appointment for PD testing. PT continues to recommend SNF to improve her activity tolerance, gait, balance and functional transfers. Son agreeable to SNF. Goals Bed Mobility Goal Independent Transfer Goal Independent,Front Wheeled Walker Gait Goal Independent,Front Wheel Walker Gait Distance 50 feet Days to Meet Goals 5 Frequency of Treatment Frequency Of Treatment Twice a Day Treatment Plan Physical Therapy Treatment Plan Bed Mobility Training,Transfer Training,Gait Training, Therapeutic Exercise,Balance Retraining,Discharge Planning, Neuromuscular Re-ed Other Recommendations and Next Treatment Progress gait, assess Focus carryover of gait pattern, back and leg pain. Recommendations To Nursing Amount of Assist Needed 1 Person Assist Discharge Recommendations PT Discharge Recommendations SNF Rehab Transportation Needs at Discharge Private Vehicle,Wheelchair/ Cabulance
[2023-01-29 11:00] VITALS: BP 103/67; PULSE 64; RESP 20; TEMP 36.9; O2SAT 95
[2023-01-29 11:32] LABS: COVID19 -Nasal RAPID Negative (Negative)
--- NOTE | 2023-01-29 11:34 | P.DS_ITS ---
History of Present Illness History of Present Illness Date Patient Seen: 01/29/23 Time Patient Seen: 08:40 Chief complaint: Bilateral Edema Lower Ext Narrative: cc: trouble breathing improved Did well over the weekend appetite and sleep ok She is off supplemental O2 and ready to go to [facility] Discharge Providers Provider Date of admission: 01/24/23 11:37 Discharge Date: 01/29/23 Primary care physician: Mathieu Smith MD Consults: 01/24/23 12:31 Consult to Pastoral Services Routine Comment: Pt request 01/25/23 12:46 Consult to Physical Therapy Evaluate & Treat Comment: Physician Instructions: Evaluate and Treat 01/25/23 12:48 Consult to Occupational Therapy Evaluate & Treat Comment: Physician Instructions: Evaluate and treat Discharge provider: Kaleb Villagran MD Summary Hospital Course Discharge Diagnosis: #Acute on chronic congestive heart failure with reduced ejection fraction #Acute kidney failure #Atrial fibrillation #Toe pain #Hypertension # Depression Hospital Course: Ms. Caldwell did well with gentle diuresis and was able to remove her oxygen and get back to ambulation. her afib seems to be doing well on low dose digoxin she will cotninue that instead of other BP control meds for now with oral lasix to f/u as outpt Status at Discharge Cognitive/behavioral status at discharge: at baseline, oriented Functional status at discharge: uses cane/walker Overall status at discharge: patient is progressing back to baseline Exam Vital Signs (past 8 hours): - 01/29/23 07:00 Pulse Oximetry 94 Oxygen Delivery Method Room Air Oxygen Flow Rate 0 Fraction of Inspired Oxygen 21 SaO2/FiO2 Ratio 461 Oxygen Delivery Method Room Air Oxygen Flow Rate 0 Narrative Exam Narrative: plesasant elder working with PT Resp Other: clear to auscultation bilaterally moving air well no crackles Cardio Other: regular rate S1/S2, pedal edema 1/2+ not bad GI Other: soft nontender nontdistended Neuro General: patient alert, patient awake and moves all extremities Objective Labs 01/24/23 09:10 01/28/23 04:54 Labs: Laboratory Results - last 24 hr 01/29/23 10:20 SARS-CoV-2 (PCR) Negative [facility] Medical History Fracture of femoral neck, left Neuropathy Surgical History History of total right hip arthroplasty Social History household members: none Smoking Status: Never smoker alcohol intake: current Discharge Assessment & Plan Assessment and Plan Assessment: #Acute on chronic congestive heart failure with reduced ejection fraction patient appears improved now back on room air without the need for oxygen supplementation.? BNP probably approaching her baseline.? Renal function still slightly abnormal but improved.? Will continue oral furosemide. #Acute kidney failure improved stable continue to hydrate #Atrial fibrillation continue low-dose digoxin at 125 mcg every other day.? next dose due on January 30 #Toe pain no evidence of fracture on imaging.? Continue to work with physical therapy to increase ambulation etcetera #Hypertension continue to holdantihypertensives - monitor and reinstitute probably an GENESIS inhibitor if she tolerates it first, assuming she remains on digoxin for rate control of her atrial fibrillation # Depression stable, patient will continue off sertraline, but remains on duloxetine at relatively high dose dispo: [facility] then back to [facility] code:full dvt ppx: xarelto time spent: 55 min Discharge Plan Discharge Plan Patient Disposition: Xfer Inpatient Rehab Transfer to: [facility] Discharge orders & Medications Discharge Orders: Discharge (Order); Ordered 01/29/23 Ordered By: Kaleb Villagran Prescriptions: New acetaminophen 325 mg Tablet 650 mg PO Q6H PRN (Reason: Fever/Mild Pain (1-3)) Qty: 30 0RF furosemide 40 mg Tablet 40 mg PO DAILY Qty: 30 0RF potassium chloride [Klor-Con M20] 20 mEq Tablet,Er Particles/Crystals 20 meq PO BIDWM Qty: 30 0RF digoxin 125 mcg (0.125 mg) Tablet 0.125 mg PO Q48H Qty: 15 0RF Continued levothyroxine [Synthroid] 175 mcg tablet 250 mcg PO QAM Patient Comments: Take 1 tablet by mouth once a day for thyroid replacement. tolterodine 2 mg tablet 2 mg PO BEDTIME Patient Comments: Take 1 tablet by mouth once a day ferrous sulfate 325 mg (65 mg iron) Tablet 325 mg PO DAILY omeprazole 20 mg capsule,delayed release(DR/EC) 20 mg PO DAILY PRN (Reason: Acid Reflux) Patient Comments: TAKE 1 CAPSULE BY MOUTH TWICE DAILY mirtazapine 45 mg tablet 45 mg PO BEDTIME vitamin B complex [B Complex-Vitamin B12] Tablet 1 tab PO DAILY Xarelto 20 mg tablet 20 mg PO BEDTIME Patient Comments: TAKE 1 TABLET BY MOUTH EVERY DAY docusate sodium 100 mg Capsule 100 mg PO BID Qty: 30 0RF lidocaine [Lidoderm] 5 % adhesive patch,medicated 1 patch topical BID PRN (Reason: pain) Qty: 15 0RF Rx Instructions: leave on most painful area for up to 12 hrs calcium polycarbophil [FiberCon] 625 mg tablet 625 mg 1-2XD Patient Comments: Take 2 tablet by mouth every morning 1 at bedtime lisinopril 2.5 mg tablet 2.5 mg BEDTIME Patient Comments: Take 1/2 tablet by mouth at bedtime duloxetine 60 mg capsule,delayed release(DR/EC) 60 mg PO DAILY Patient Comments: TAKE 1 CAPSULE BY MOUTH EVERY MORNING AZO D-Mannose 500 mg capsule 1,500 mg PO DAILY Patient Comments: Take 3 by mouth once a day tolterodine 2 mg tablet 2 mg PO BEDTIME metoprolol succinate 25 mg tablet extended release 24 hr 25 mg PO BEDTIME duloxetine 30 mg capsule,delayed release(DR/EC) 30 mg PO BEDTIME rivastigmine 4.6 mg/24 hour patch 24 hour 4.6 mg topical DAILY Patient Comments: APPLY 1 PATCH TOPICALLY TO THE SKIN EVERY DAY rivastigmine 9.5 mg/24 hour patch 24 hour 9.5 mg topical BEDTIME Patient Comments: Apply 1 patch patch at bedtime Discontinued sertraline 100 mg tablet 150 mg PO DAILY hydrocodone-acetaminophen 5-325 mg Tablet 1 tab PO Q4HR PRN (Reason: Pain, Moderate (4-6)) Qty: 30 0RF Follow up/Referrals: Mathieu Smith MD [Primary Care Provider] - Diet/Activity/Treatments Diet: Diet as Tolerated and Regular [facility] Reason for rehabilitation: Recovery r/t decondition Rehab type: Physical therapy and Occupational therapy Visit Report/Discharge Packet Instructions: DI for Heart Failure Discharge Data Primary Care Provider: Mathieu Smith Quality VTE Deep Vein Thrombosis/Pulmonary Embolism Present on Admission: No
--- NOTE | 2023-01-29 12:07 | CM.DPC ---
Addendum entered by AYAD Leyva 01/29/23 13:27: ADD: Return call from Mariana Moore at [facility] confirming they feel pt needs SNF at d/c before returning to their facility. [facility] to transport pt around 1330 today for SNF rehab prior to return to [facility]. Per Rn, son in room and aware. BF Original Note: DCP Discharge SNF Per MD, pt is medically stable to discharge today either back to [facility] vs SNF pending DANIELLA review. SW requested PT/OT prioritize pt if possible for discharge needs. EDEL called pt's DPOA/Dtr inlchen Marks and updated on discharge today and she confirms her preference is still to return to [facility] to reduce the number of transitions due to her mild dementia but aware after her discussion with [facility] that they likely will require SNF before pt returns. SW called [facility] and left [facility] for nursing staff updating that pt has discharge orders and updated clinicals were faxed to review. SW met bedside with pt and her son after CREDIT UNION MANAGER had just worked with pt and still feel SNF would be helpful for strengthening. Son confirms preference would be return to [facility] but would be agreeable to [facility] if SNF needed and SW updated that [facility] can likely transport around 1400 today and he confirms this would be alright and pt states she is agreeable as well. EDEL called [facility] again and spoke to Mariana Moore RN and updated and she feels pt needs to be back to her independent baseline although pt started independent at their facility but when admitted to the hospital was mostly using w/c and needing assist. EDEL confirmed pt is on Assisted Living side and SW stated confusion if pt on Assisted side why they would not be able to accept back since pt able to ambulate with walker, with CGA and no longer on oxygen how they would not be able to accept back? Mariana Moore states she will review the clinicals and call back cheryl. CAITLIN Phillips faxed [facility], signed med list, no scripts, updated COVID swab, orders to [facility] to review. RN looking to see if lasix still needed for pt at d/c and will update med list if needed. EDEL provided RN with number to call report and [facility] aiming for 1330 transport otherwise would need to be 1530 transport. EDEL updated cadastral surveyor and AUTOMATIC MOLD SANDER. Plan: EDEL to follow for return call from [facility] to confirm if they can accept or if SNF needed and SW following for current plan of [facility] rehab at 1330 before return to [facility]. AYAD Leyva
--- NOTE | 2023-01-29 13:35 | PC.NURSE ---
Pt used [facility], 1 PA w/ FWW, moderate BM and urine, and pt stayed in hospital gown on for transfer to [facility] @ [id number]. Called [facility] to give report to receiving RN. Communicated to RN that MD had not ordered PO Lasix, and she stated she would try to get their resident MD to order it for Pt. Called [facility] to double check the order, and he agreed that she needed Lasix so we just hand wrote med order onto med list. Pt left unit with all belongings via facility wheelchair @ [id number].
== END 2023-01-29 13:34 | DRG 291 ==
LOC: ED 11:12 → AC 11:38
PROVIDERS: Family Medicine; Internal Medicine; Admitting Provider Family Medicine; Emergency Provider Emergency Medicine; PCP Family Medicine; Referring Provider Emergency Medicine; Visit Provider Family Medicine
DX: I11.0 Hypertensive heart disease with heart failure (principal); I50.23 Acute on chronic systolic (congestive) heart failure; J96.01 Acute respiratory failure with hypoxia; I48.91 Unspecified atrial fibrillation; F32.A Depression, unspecified; G89.29 Other chronic pain; M54.9 Dorsalgia, unspecified; K21.9 Gastro-esophageal reflux disease without esophagitis; E87.6 Hypokalemia; M79.674 Pain in right toe(s); Z20.822 Contact with and (suspected) exposure to COVID-19
CPT/HCPCS: 36415; 71045; 73630; 80048; 80053; 82962; 83690; 83735; 83880; 84132; 84443; 84484; 85025; 85610; 87635; 93005; 93010; 93306; 94760; 96365; 97116; 97162; 97166; 97530; 97535; 99233; 99285; C9803; J1160; J1940

== ENCOUNTER → 2023-02-02 17:29 | Outpatient (ROUT) | payer MEDICARE, OTHER, SELFPAY ==
[2023-01-27 18:39] VITALS: BMI 21.5
[2023-02-02 17:38] LABS: Bilirubin Urine UA NEGATIVE (NEGATIVE); Color Urine UA YELLOW; Glucose Urine UA NEGATIVE (Negative); Ketones Urine UA NEGATIVE (NEGATIVE); Leukocyte Esterase Urine UA TRACE (NEGATIVE); Nitrite Urine UA NEGATIVE (Negative); Occult Blood Urine UA TRACE-INTACT (Negative); Protein Urine UA NEGATIVE (Negative); Urobilinogen Urine UA 0.2 E.U./dL (0.2)
[2023-02-02 17:53] LABS: Amorphous Sediment Urine 1+; Appearance Urine UA CLOUDY; Bacteria Urine Many (>30); Culture Indicated Urine Specimen Cultured; Mucus Urine 1+ (Negative); RBC Urine 1-5/HPF (0-5/HPF); Renal Epithelial Cells Urine 0-1/HPF (0-1/HPF); Squamous Epithelial Cell Urine 1-5 /HPF (0-5/HPF); WBC Urine 1-5/HPF (0-5/HPF); pH Urine UA 5.5 (4.5-8.0)
== END ==
PROVIDERS: PCP Family Medicine; Visit Provider Family Medicine
DX: Z13.89 Encounter for screening for other disorder (principal)
CPT/HCPCS: 81001; 87077; 87086; 87186

== ENCOUNTER → 2023-02-10 12:38 | Outpatient (ROUT) | payer MEDICARE, OTHER, SELFPAY ==
[2023-01-27 18:39] VITALS: BMI 21.5
[2023-02-10 12:44] LABS: Appearance Urine UA CLOUDY; Bilirubin Urine UA NEGATIVE (NEGATIVE); Color Urine UA YELLOW; Glucose Urine UA NEGATIVE (Negative); Ketones Urine UA NEGATIVE (NEGATIVE); Leukocyte Esterase Urine UA 1+ (NEGATIVE); Nitrite Urine UA POSITIVE (Negative); Occult Blood Urine UA TRACE-INTACT (Negative); Protein Urine UA TRACE (Negative); Specific Gravity Urine UA 1.025 (1.000-1.035); Urobilinogen Urine UA 0.2 E.U./dL (0.2)
[2023-02-10 12:54] LABS: Bacteria Urine Many (>30); Culture Indicated Urine Specimen Cultured; RBC Urine 1-5/HPF (0-5/HPF); WBC Urine 30-100/HPF (0-5/HPF)
== END ==
PROVIDERS: PCP Family Medicine; Visit Provider Internal Medicine
DX: R41.0 Disorientation, unspecified (principal)
CPT/HCPCS: 81001; 87077; 87086; 87186